=== PATIENT | male | born 1985 | race Caucasian/White ===

== ENCOUNTER → 2023-12-30 18:16 | Outpatient (BNVA) | payer MEDICARE, MEDICAID, OTHER, SELFPAY | PROVIDERS: Referring Provider Family Medicine; Visit Provider Family Medicine | DX: S99.921A Unspecified injury of right foot, initial encounter (principal); M20.11 Hallux valgus (acquired), right foot; M79.671 Pain in right foot; M21.6X1 Other acquired deformities of right foot; X58.XXXA Exposure to other specified factors, initial encounter | CPT/HCPCS: 73630 ==

== ENCOUNTER 2024-03-30 18:47 | Emergency (ER) | payer MEDICARE, MEDICAID, SELFPAY ==
--- NOTE | 2024-03-30 18:50 | XRR_ITS ---
PROCEDURE INFORMATION: Exam: XR Chest Exam date and time: 03/30/2024 6:58 PM Age: 38 years old Clinical indication: Shortness of breath; Prior surgery; Surgery date: 6+ months; Surgery type: Pacer; Additional info: Cp TECHNIQUE: Imaging protocol: Radiologic exam of the chest. Views: 1 view. COMPARISON: No relevant prior studies available. FINDINGS: Lungs: No focal consolidation. Pleural spaces: No evidence of pneumothorax. No evidence of pleural effusion. Heart/Mediastinum: Postsurgical changes of the mediastinum. Bones/joints: No evidence of acute osseous abnormality. Device projects over the scapula. XR/XR chest 1V portable [id number] IMPRESSION: 1. No acute cardiopulmonary abnormality.
[2024-03-30 18:52] VITALS: BP 138/88; PULSE 89; RESP 18; TEMP 36.6; O2SAT 98; BMI 47.2
--- NOTE | 2024-03-30 19:27 | ECG_ITS ---
[facility] Test Date: 2024-03-30 Pat Name: Herrera Garza Department: Room: Gender: Male Licensed Occupational Therapist: : [id number] Requested By: Martine Paz Order Number: [id number] Skylar MD: Dago Wan M.D. Measurements Intervals [place] Rate: 83 P: 17 NV: 176 QRS: -67 QRSD: 161 T: -4 QT: 403 QTc: 474 Interpretive Statements SINUS RHYTHM LEFT AXIS DEVIATION [QRS AXIS < -30] RIGHT BUNDLE BRANCH BLOCK [120+ ms QRS DURATION, UPRIGHT V1, 40+ ms S IN I/aVL/V4/V5/V6] No previous ECG available for comparison Electronically Signed On 03-31-2024 00:03:09 COAL CHUTE WORKER by Dago Wan M.D. [id number]
--- NOTE | 2024-03-30 19:50 | ED_ITS ---
HPI - SOB/Dyspnea 2 General: Chief Complaint: Shortness of Breath/Dyspnea Stated Complaint: ribs hurtting,SOB Time Seen by Provider: 03/30/24 19:11 Source: patient Mode of arrival: ambulatory Limitations: no limitations History of Present Illness: HPI Narrative: Patient is a 38-year-old male presents emergency department with left rib pain onset today. States he has been sick for few weeks, has been coughing and now has rib discomfort. Reports mildly productive cough, also notes he feels short of breath when he lies down. He is from [facility] living facility, no sick contacts reported. Does not use oxygen, no history of asthma or COPD. Does not report any peripheral edema. The pain is worse with inspiration as well as coughing. MD elicited complaint: cough and pain with inspiration Onset (ago): hour(s) Context: recent illness Timing: constant Severity: moderate Exacerbating factors: coughing and inspiration Associated symptoms: Deny abdominal pain, chest pain, fever(s), lightheadedness, nausea, palpitations or vomiting Related Data Home Medications Medication Instructions Recorded Confirmed acetaminophen 325 mg capsule 650 mg PO QID PRN 12/23/23 03/30/24 atorvastatin 20 mg tablet 20 mg PO .Night 12/23/23 03/30/24 calcium 600 mg (as carbonate)-vit tab PO BID 12/23/23 03/30/24 D3 10 mcg (400 unit) chewable tablet (Calcium 600 with Vitamin D3) carbamazepine 200 mg tablet 400 mg PO .Evening 12/23/23 03/30/24 carbamazepine 200 mg tablet 400 mg PO .Noon 12/23/23 03/30/24 carbamazepine 200 mg tablet 600 mg PO .AM 12/23/23 03/30/24 clonazepam 0.5 mg tablet 0.5 mg PO BID 12/23/23 03/30/24 diphenhydramine HCl 50 mg capsule 50 mg PO QID PRN 12/23/23 03/30/24 (Banophen) divalproex 250 mg tablet,extended 250 mg PO .AM 12/23/23 03/30/24 release 24 hr divalproex 500 mg tablet,extended 2,000 mg PO .HS 12/23/23 03/30/24 release 24 hr divalproex 500 mg tablet,extended 500 mg PO .AM 10/08/24 01/14/25 release 24 hr ft fiberlax psyllium husk 160 mg PO 2XD 12/23/23 03/30/24 hemorroidal cream topical BID 12/23/23 03/30/24 hydrocortisone 1 % topical cream 1 applic topical QID PRN 12/23/23 03/30/24 (Anti-Itch (hydrocortisone)) hydroxyzine HCl 25 mg tablet 25 mg PO TID 12/23/23 03/30/24 hydroxyzine pamoate 50 mg capsule 50 mg PO QID PRN 12/23/23 03/30/24 ibuprofen 400 mg tablet 400 mg PO Q6H PRN 12/23/23 03/30/24 levothyroxine 50 mcg capsule 50 mcg PO .AM 12/23/23 03/30/24 menthol 3.2 mg lozenges ([place] 3.2 mg mucous membrane Q2H PRN 12/23/23 03/30/24 Cough Drops) cse-hlmzi-hsym-lidocaine topical ea topical DAILY PRN 12/23/23 03/30/24 ointment polyethylene glycol 3350 17 4 g PO TID PRN 12/23/23 03/30/24 gram/dose oral powder potassium chloride 20 mEq 20 meq PO DAILY 12/23/23 03/30/24 tablet,extended release sennosides 8.6 mg-docusate sodium 1 tab-cap PO BID PRN 12/23/23 03/30/24 50 mg tablet (Senna-Time S) topiramate 100 mg tablet 250 mg PO .AM 12/23/23 03/30/24 topiramate 100 mg tablet 300 mg PO .Evening 12/23/23 03/30/24 dextromethorphan HBr 5 mg/5 mL 10 mg PO BID PRN 01/28/24 03/30/24 oral syrup (Vicks DayQuil Cough) Previous Rx's Medication Instructions Recorded paroxetine HCl 40 mg tablet 40 mg PO DAILY #30 tabs 01/28/24 quetiapine 50 mg tablet 50 mg PO .HS #30 tabs 01/28/24 risperidone 2 mg tablet 2 mg PO BID #60 tabs 01/28/24 kwteemdnxeaqwud-itaezhytcsmlagr-QE 5 ml PO Q6H PRN cold symptoms #118 03/08/24 2 mg-30 mg-10 mg/5 mL oral syrup mL (Bromfed DM) loperamide 2 mg capsule (Imodium 2 mg PO Q6H PRN loose stool #20 03/08/24 A-D) caps prednisone 20 mg tablet 60 mg (3 x 20 mg) PO ONCE 5 days 03/30/24 #15 tabs Allergies Allergy/AdvReac Type Severity Reaction Status Date / Time No Known Allergies Allergy Verified 03/30/24 18:58 Review of Systems 2 General: Reports: 10 or more systems reviewed and unremarkable except in HPI and below Const: Denies: fever(s), chills or fatigue Eyes: Denies: change in vision ENMT: Denies: throat pain, ear or mastoid pain or nasal discharge Card: Denies: chest pain, palpitations, swelling of feet/ankles or lightheadedness Resp: Reports: productive cough and pain on inspiration; Denies: dyspnea or wheezing GI: Denies: abdominal pain, nausea, vomiting, diarrhea or constipation : Denies: flank pain, difficulty urinating, dysuria or urinary frequency Musc: Reports: other (Left rib pain); Denies: neck pain, back pain or joint pain Skin/Breast: Denies: rash Neuro: Denies: headache(s), numbness in extremities or weakness in extremities PFSH ED 2 PFSH: Medical History Psychiatric care Social History Smoking and tobacco/nicotine status: never used tobacco/nicotine Physical Exam 2 Const: COMMON NORMALS: no acute distress, patient oriented x3 and no limitations GENERAL APPEARANCE: cooperative, comfortable and well developed NUTRITIONAL APPEARANCE: obese morbidly obese ORIENTATION/CONSCIOUSNESS: Yes awake, Yes oriented to person, Yes oriented to place and Yes oriented to time HENMT: COMMON NORMALS: normocephalic, atraumatic and hearing grossly normal bilaterally HEAD & SCALP: normocephalic and atraumatic Eye: COMMON NORMALS: Equal, round and reactive pupils present, EOMs intact bilaterally and conjunctivae normal CONJUNCTIVA: Yes conjunctivae normal P UPIL: Yes Equal, round and reactive pupils present Neck/C-Spine: COMMON NORMALS: full ROM, supple and no JVD Chest: OTHER: Reproducible tenderness to palpation to left anterolateral chest wall Resp: COMMON NORMALS: normal respiratory effort, No retractions, No use of accessory muscles and clear to auscultation bilaterally AUSCULTATION: clear to auscultation bilaterally Cardio: COMMON NORMALS: no JVD, regular rate, regular rhythm, No clicks present (Cardio), No murmurs present (Cardio) and No rub (Cardio) RATE: r egular rate RHYTHM: regular rhythm Extremity: COMMON NORMALS: normal to inspection, full ROM and capillary refill normal Neuro: COMMON NORMALS: patient oriented x3, moves all extremities, no focal motor deficits and no sensory deficits noted SENSORIUM/ORIENTATION: Yes oriented to person, Yes oriented to place and Yes oriented to time Psych: COMMON NORMALS: mental status grossly normal and Normal thought process present THOUGHT PROCESS: Normal thought process present Skin: COMMON NORMALS: no rashes or lesions noted GENERAL SKIN EXAM: no rashes or lesions noted Course 2 Vital Signs: Vital signs: Vital Signs Temperature 98 F 03/30/24 18:52 Pulse Rate 70 03/30/24 20:34 Respiratory Rate 18 03/30/24 18:52 Blood Pressure 120/74 03/30/24 20:34 Pulse Oximetry 96 03/30/24 20:34 Oxygen Delivery Me thod Room Air 03/30/24 20:34 MDM - SOB/Dyspnea Medical Decision Making Reproducible tenderness to palpation on exam, lungs are clear to auscultation. Vitals have been normal. With recent illness and the coughing, very likely costochondritis will treat with steroids. Encourage close follow-up with primary care he will be discharged back to [facility] facility. Lab Data 03/30/24 19:47 03/30/24 19:47 Labs/Radiology: Radiology Impressions Chest X-Ray 03/30/24 18:50 IMPRESSION: 1. No acute cardiopulmonary abnormality. Laboratory Results WBC 3.94 10^3/uL (3.29-11.43) 03/30/24 19:47 RBC 3.98 10^6/uL (3.85-5.65) 03/30/24 19:47 Hgb 12.20 g/dL (11.27-16.99) 03/30/24 19:47 Hct 37.6 % (37-53) 03/30/24 19:47 MCV 94.5 fl (82-101) 03/30/24 19:47 MCH 30.7 pg (27-33) 03/30/24 19:47 MCHC 32.4 g/dL (30-55) 03/30/24 19:47 RDW 13.2 % (12.1-15.1) 03/30/24 19:47 Plt Count 149 10^3/cmm (157-399) L 03/30/24 19:47 MPV 9.9 fL (7.4-10.4) 03/30/24 19:47 Neut % (Auto) 40.6 % 03/30/24 19:47 Lymph % (Auto) 38.6 % 03/30/24 19:47 [place] % (Auto) 18.0 % 03/30/24 19:47 Eos % (Auto) 1.8 % 03/30/24 19:47 Baso % (Auto) 0.5 % 03/30/24 19:47 Neut # (Auto) 1.60 10^3/uL (1.8-7.7) L 03/30/24 19:47 Lymph # (Auto) 1.5 10^3/uL (0.8-4.8) 03/30/24 19:47 [place] # (Auto) 0.7 10^3/uL (0.2-0.9) 03/30/24 19:47 Eos # (Auto) 0.1 10^3/uL (0.0-0.8) 03/30/24 19:47 Baso # (Auto) 0.0 10^3/uL (0.0-0.1) 03/30/24 19:47 Nucleated RBC % (auto) 0 % 03/30/24 19:47 Nucleated RBCs # 0.0 /100WBC 03/30/24 19:47 Sodium 139 mmol/L (136-145) 03/30/24 19:47 Potassium 4.1 mmol/L (3.5-5.1) 03/30/24 19:47 Chloride 107 mmol/L (98-107) 03/30/24 19:47 Carbon Dioxide 22 mmol/L (22-29) 03/30/24 19:47 Anion Gap 14.1 (5-19) 03/30/24 19:47 BUN 16 mg/dL (6-20) 03/30/24 19:47 Creatinine 0.6 mg/dL (0.7-1.2) L 03/30/24 19:47 GFR Calculation 151.6 mL/min (90-130) H 03/30/24 19:47 Glucose 88 mg/dL (65-115) 03/30/24 19:47 Calculated Osmolality 289 mOsm/kg (285-295) 03/30/24 19:47 Calcium 9.5 mg/dL (8.5-10.5) 03/30/24 19:47 Total Bilirubin 0.2 mg/dL (0.15-1.2) 03/30/24 19:47 AST 18 U/L (0-40) 03/30/24 19:47 ALT 13 U/L (0-41) 03/30/24 19:47 Alkaline Phosphatase 66 U/L (40-130) 03/30/24 19:47 Total Protein 7.2 g/dL (6.6-8.7) 03/30/24 19:47 Albumin 4.0 g/dL (3.5-5.2) 03/30/24 19:47 Globulin 3.2 g/dL (1.3-4.6) 03/30/24 19:47 All radiology interpretation(s) finalized by discharge Discharge Plan Discharge Patient Disposition: Home Clinical Impression: Costochondritis Condition: Stable Prescriptions: New prednisone 20 mg tablet 60 mg PO ONCE 5 Days Qty: 15 0RF No Action acetaminophen 325 mg capsule 650 mg PO QID PRN diphenhydramine HCl [Banophen] 50 mg capsule 50 mg PO QID PRN [place] Cough Drops 3.2 mg lozenge 3.2 mg mucous membrane Q2H PRN hemorroidal cream topical BID hydrocortisone [Anti-Itch (HC)] 1 % cream 1 applic topical QID PRN hydroxyzine pamoate 50 mg capsule 50 mg PO QID PRN ibuprofen 400 mg tablet 400 mg PO Q6H PRN polyethylene glycol 3350 17 gram/dose powder 4 g PO TID PRN sennosides-docusate sodium [Senna-Time S] 8.6-50 mg tablet 1 tab-cap PO BID PRN hydroxyzine HCl 25 mg tablet 25 mg PO TID divalproex 500 mg tablet extended release 24 hr 2,000 mg PO .HS divalproex 500 mg tablet extended release 24 hr 500 mg PO .AM divalproex 250 mg tablet extended release 24 hr 250 mg PO .AM Rx Instructions: With 500 mg in AM. levothyroxine 50 mcg capsule 50 mcg PO .AM clonazepam 0.5 mg tablet 0.5 mg PO BID ihq-wqsvu-mtkc-lidocaine Ointment topical DAILY PRN ft fiberlax psyllium husk 160 mg PO 2XD carbamazepine 200 mg tablet 400 mg PO .Noon carbamazepine 200 mg tablet 400 mg PO .Evening topiramate 100 mg tablet 300 mg PO .Evening atorvastatin 20 mg tablet 20 mg PO .Night Rx Instructions: Every night with dinner. carbamazepine 200 mg tablet 600 mg PO .AM potassium chloride 20 mEq tablet extended release 20 meq PO DAILY Rx Instructions: Take with food. topiramate 100 mg tablet 250 mg PO .AM Calcium 600 with Vitamin D3 600 mg-10 mcg (400 unit) tablet,chewable PO BID Vicks DayQuil Cough 5 mg/5 mL syrup 10 mg PO BID PRN quetiapine 50 mg tablet 50 mg PO .HS Qty: 30 11RF risperidone 2 mg tablet 2 mg PO BID Qty: 60 11RF paroxetine HCl 40 mg tablet 40 mg PO DAILY Qty: 30 11RF loperamide [Imodium A-D] 2 mg capsule 2 mg PO Q6H PRN (Reason: loose stool) Qty: 20 0RF iyhpwfntdpjebha-pecllqeft-KE [Bromfed DM] 2-30-10 mg/5 mL syrup 5 ml PO Q6H PRN (Reason: cold symptoms) Qty: 118 0RF Discharge Orders: Discharge ED (Routine); Ordered 03/30/24 Ordered By: Grzegorz Perrin Patient Instructions: Costochondritis (ED) Activity Restrictions/Additional Instructions: Take prednisone as prescribed. Follow-up with primary care. Drink plenty fluids. Return with any new or worsening. Coding Level of Care Code ED Warehouse Order Selector for Ambar Carmona
[2024-03-30 20:07] LABS: Basophils % 0.5 %; Eosinophils # 0.1 10^3/uL (0.0-0.8); Eosinophils % 1.8 %; Hematocrit 37.6 % (37-53); Lymphocytes # 1.5 10^3/uL (0.8-4.8); Lymphocytes % 38.6 %; Mean Corpuscular HGB Conc 32.4 g/dL (30-55); Mean Corpuscular Hemoglobin 30.7 pg (27-33); Mean Corpuscular Volume 94.5 fl (82-101); Mean Platelet Volume 9.9 fL (7.4-10.4); Monocytes # 0.7 10^3/uL (0.2-0.9); Neutrophils % 40.6 %; Nucleated Red Blood Cells % 0 %; Platelet Count 149 10^3/cmm (157-399); Red Blood Count 3.98 10^6/uL (3.85-5.65); Red Cell Distribution Width 13.2 % (12.1-15.1); White Blood Count 3.94 10^3/uL (3.29-11.43)
[2024-03-30 20:21] LABS: Alanine Aminotransferase 13 U/L (0-41); Alkaline Phosphatase 66 U/L (40-130); Anion Gap 14.1 (5-19); Aspartate Amino Transferase 18 U/L (0-40); Blood Urea Nitrogen 16 mg/dL (6-20); Calcium 9.5 mg/dL (8.5-10.5); Carbon Dioxide 22 mmol/L (22-29); Chloride 107 mmol/L (98-107); Creatinine Clr Calc Pharmacy 261.5532; Globulin 3.2 g/dL (1.3-4.6); Glomerular Filtration Rate 151.6 mL/min (90-130); Glucose 88 mg/dL (65-115); Osmolality Calculated 289 mOsm/kg (285-295); Potassium 4.1 mmol/L (3.5-5.1); Sodium 139 mmol/L (136-145); Total Bilirubin 0.2 mg/dL (0.15-1.2); Total Protein 7.2 g/dL (6.6-8.7)
[2024-03-30 20:34] VITALS: BP 120/74; PULSE 70; O2SAT 96
[2024-03-30 20:47] VITALS: BP 120/74; PULSE 70; O2SAT 96
== END 2024-03-30 20:48 | disposition home or self-care (01) ==
PROVIDERS: Emergency Provider Physician Assistant
DX: M94.0 Chondrocostal junction syndrome [Tietze] (principal)
CPT/HCPCS: 36415; 71045; 80053; 85025; 93005; 99285

== ENCOUNTER 2024-04-02 21:55 | Emergency (ER) | payer MEDICARE, MEDICAID, SELFPAY ==
[2024-04-02 22:04] VITALS: BP 119/75; PULSE 78; RESP 18; TEMP 36.8; O2SAT 98; BMI 47.6
[2024-04-03 02:00] VITALS: BP 138/97; PULSE 67; O2SAT 98
[2024-04-03 02:16] VITALS: BP 129/66; PULSE 69; O2SAT 97
[2024-04-03 02:30] VITALS: BP 139/80; PULSE 67; O2SAT 99
[2024-04-03 02:36] LABS: Covid PCR NEGATIVE (Negative); Influenza A NEGATIVE (Negative); Influenza B NEGATIVE (Negative); Respiratory Syncytial Virus Ce NEGATIVE (Negative)
--- NOTE | 2024-04-03 02:52 | ED_ITS ---
HPI - URI/Sore Throat General: Chief Complaint: Upper Respiratory Infection Stated Complaint: Coughing Time Seen by Provider: 04/03/24 02:49 History of Present Illness: Patient presents to the ER with complaints of bodyaches dizziness productive cough and just not feeling well all over. Patient's caregiver says that these have been his normal complaints that he has not had a fever. There is always viruses going to the facility. Related Data Home Medications Medication Instructions Recorded Confirmed acetaminophen 325 mg capsule 650 mg PO QID PRN 12/23/23 03/30/24 atorvastatin 20 mg tablet 20 mg PO .Night 12/23/23 03/30/24 calcium 600 mg (as carbonate)-vit tab PO BID 12/23/23 03/30/24 D3 10 mcg (400 unit) chewable tablet (Calcium 600 with Vitamin D3) carbamazepine 200 mg tablet 400 mg PO .Evening 12/23/23 03/30/24 carbamazepine 200 mg tablet 400 mg PO .Noon 12/23/23 03/30/24 carbamazepine 200 mg tablet 600 mg PO .AM 12/23/23 03/30/24 clonazepam 0.5 mg tablet 0.5 mg PO BID 12/23/23 03/30/24 diphenhydramine HCl 50 mg capsule 50 mg PO QID PRN 12/23/23 03/30/24 (Banophen) divalproex 250 mg tablet,extended 250 mg PO .AM 12/23/23 03/30/24 release 24 hr divalproex 500 mg tablet,extended 2,000 mg PO .HS 12/23/23 03/30/24 release 24 hr divalproex 500 mg tablet,extended 500 mg PO .AM 12/23/23 03/30/24 release 24 hr ft fiberlax psyllium husk 160 mg PO 2XD 12/23/23 03/30/24 hemorroidal cream topical BID 12/23/23 03/30/24 hydrocortisone 1 % topical cream 1 applic topical QID PRN 12/23/23 03/30/24 (Anti-Itch (hydrocortisone)) hydroxyzine HCl 25 mg tablet 25 mg PO TID 12/23/23 03/30/24 hydroxyzine pamoate 50 mg capsule 50 mg PO QID PRN 12/23/23 03/30/24 ibuprofen 400 mg tablet 400 mg PO Q6H PRN 12/23/23 03/30/24 levothyroxine 50 mcg capsule 50 mcg PO .AM 12/23/23 03/30/24 menthol 3.2 mg lozenges ([place] 3.2 mg mucous membrane Q2H PRN 12/23/23 03/30/24 Cough Drops) dck-jpfdy-docb-lidocaine topical ea topical DAILY PRN 12/23/23 03/30/24 ointment polyethylene glycol 3350 17 4 g PO TID PRN 12/23/23 03/30/24 gram/dose oral powder potassium chloride 20 mEq 20 meq PO DAILY 12/23/23 03/30/24 tablet,extended release sennosides 8.6 mg-docusate sodium 1 tab-cap PO BID PRN 12/23/23 03/30/24 50 mg tablet (Senna-Time S) topiramate 100 mg tablet 250 mg PO .AM 12/23/23 03/30/24 topiramate 100 mg tablet 300 mg PO .Evening 12/23/23 03/30/24 dextromethorphan HBr 5 mg/5 mL 10 mg PO BID PRN 01/28/24 03/30/24 oral syrup (Vicks DayQuil Cough) Previous Rx's Medication Instructions Recorded paroxetine HCl 40 mg tablet 40 mg PO DAILY #30 tabs 01/28/24 quetiapine 50 mg tablet 50 mg PO .HS #30 tabs 01/28/24 risperidone 2 mg tablet 2 mg PO BID #60 tabs 01/28/24 ipussvmwmnqdpyd-jzavvcjkrykfacw-ZY 5 ml PO Q6H PRN cold symptoms #118 03/08/24 2 mg-30 mg-10 mg/5 mL oral syrup mL (Bromfed DM) loperamide 2 mg capsule (Imodium 2 mg PO Q6H PRN loose stool #20 03/08/24 A-D) caps prednisone 20 mg tablet 60 mg (3 x 20 mg) PO ONCE 5 days 03/30/24 #15 tabs Allergies Allergy/AdvReac Type Severity Reaction Status Date / Time No Known Allergies Allergy Verified 03/30/24 18:58 Review of Systems General: Reports: 10 or more systems reviewed and unremarkable except in HPI and below PFSH ED PFSH: Medical History Psychiatric care Social History Smoking and tobacco/nicotine status: never used tobacco/nicotine Physical Exam Const: COMMON NORMALS: no acute distress, average body habitus, healthy appearing, alert and well nourished HENMT: COMMON NORMALS: normocephalic, atraumatic, hearing grossly normal bila terally, external ears normal, EAC's normal, TM's normal bilaterally, Normal external nose present, Normal nasal mucous membranes and turbinates present, moist oral mucous membranes and oropharynx normal HEAD & SCALP: normocephalic and atraumatic NOSE: Normal external nose present and Normal nasal mucous membranes and turbinates present EXTERNAL EAR: Yes external ears normal EXTERNAL AUDITORY CANAL: EAC's normal TYMPANIC MEMBRANE: TM's normal bilaterally Eye: COMMON NORMALS: Equal, round and reactive pupils present, EOMs intact bilaterally, conjunctivae normal and no scleral icterus CONJUNCTIVA: Yes conjunctivae normal PUPIL: Yes Equal, round and reactive pupils present Neck/C-Spine: COMMON NORMALS: no JVD Chest: COMMONS NORMALS: normal inspection of the chest and normal palpation of entire chest wall Resp: COMMON NORMALS: normal respiratory effort, No retractions, No use of accessory muscles and clear to auscultation bilaterally AUSCULTATION: clear to auscultation bilaterally Cardio: COMMON NORMALS: no JVD, regular rate, regular rhythm, S1 normal heart sound present, S2 normal heart sound present, No gallops present (Cardio), No clicks present (Cardio), No murmurs present (Cardio) and No rub (Cardio) RATE: regular rate RHYTHM: regular rhythm HEART SOUNDS: S1 normal heart sound present and S2 normal heart sound present GI: COMMON NORMALS: Normal to inspection, nondistended, normoactive bowel sounds present, Soft to palpation, non-tender, No hepatosplenomegaly present and no masses PALPATION: Yes Soft to palpation and Yes No hepatosplenomegaly present Neuro: SENSORIUM/ORIENTATION: Yes alert Course Vital Signs: Vital signs: Vital Signs Temperature 98.3 F 04/02/24 22:04 Pulse Rate 78 04/02/24 22:04 Respiratory Rate 18 04/02/24 22:04 Blood Pressure 119/75 04/02/24 22:04 Pulse Oximetry 98 04/02/24 22:04 Oxygen Delivery Me thod Room Air 04/02/24 22:04 MDM - URI/Sore Throat Medical Decision Making Patient benign physical exam and is eating and drinking during his entire stay in ER. Patient's was negative for schmid influenza and RSV. Patient be diagnosed with viral URI and discharged home. Medical Records I reviewed the patient's medical records. Lab Data I reviewed the patient's lab results. Laboratory Results Coronavirus (PCR) Negative (Negative) 04/03/24 01:58 Influenza A (PCR) Negative (Negative) 04/03/24 01:58 Influenza Type B (PCR) Negative (Negative) 04/03/24 01:58 RSV (PCR) Negative (Negative) 04/03/24 01:58 All radiology interpretation(s) finalized by discharge Discharge Plan Discharge Patient Disposition: Home Clinical Impression: Upper respiratory infection Qualifiers: URI type: unspecified URI Qualified Code(s): J06.9 - Acute upper respiratory infection, unspecified Condition: Stable Prescriptions: No Action acetaminophen 325 mg capsule 650 mg PO QID PRN diphenhydramine HCl [Banophen] 50 mg capsule 50 mg PO QID PRN [place] Cough Drops 3.2 mg lozenge 3.2 mg mucous membrane Q2H PRN hemorroidal cream topical BID hydrocortisone [Anti-Itch (HC)] 1 % cream 1 applic topical QID PRN hydroxyzine pamoate 50 mg capsule 50 mg PO QID PRN ibuprofen 400 mg tablet 400 mg PO Q6H PRN polyethylene glycol 3350 17 gram/dose powder 4 g PO TID PRN sennosides-docusate sodium [Senna-Time S] 8.6-50 mg tablet 1 tab-cap PO BID PRN hydroxyzine HCl 25 mg tablet 25 mg PO TID divalproex 500 mg tablet extended release 24 hr 2,000 mg PO .HS divalproex 500 mg tablet extended release 24 hr 500 mg PO .AM divalproex 250 mg tablet extended release 24 hr 250 mg PO .AM Rx Instructions: With 500 mg in AM. levothyroxine 50 mcg capsule 50 mcg PO .AM clonazepam 0.5 mg tablet 0.5 mg PO BID xqr-bwomj-thwo-lidocaine Ointment topical DAILY PRN ft fiberlax psyllium husk 160 mg PO 2XD carbamazepine 200 mg tablet 400 mg PO .Noon carbamazepine 200 mg tablet 400 mg PO .Evening topiramate 100 mg tablet 300 mg PO .Evening atorvastatin 20 mg tablet 20 mg PO .Night Rx Instructions: Every night with dinner. carbamazepine 200 mg tablet 600 mg PO .AM potassium chloride 20 mEq tablet extended release 20 meq PO DAILY Rx Instructions: Take with food. topiramate 100 mg tablet 250 mg PO .AM Calcium 600 with Vitamin D3 600 mg-10 mcg (400 unit) tablet,chewable PO BID Vicks DayQuil Cough 5 mg/5 mL syrup 10 mg PO BID PRN quetiapine 50 mg tablet 50 mg PO .HS Qty: 30 11RF risperidone 2 mg tablet 2 mg PO BID Qty: 60 11RF paroxetine HCl 40 mg tablet 40 mg PO DAILY Qty: 30 11RF loperamide [Imodium A-D] 2 mg capsule 2 mg PO Q6H PRN (Reason: loose stool) Qty: 20 0RF czvmkdewxyuajto-frhrphssb-VX [Bromfed DM] 2-30-10 mg/5 mL syrup 5 ml PO Q6H PRN (Reason: cold symptoms) Qty: 118 0RF prednisone 20 mg tablet 60 mg PO ONCE 5 Days Qty: 15 0RF Discharge Orders: Discharge ED (Routine); Ordered 04/03/24 Ordered By: Herrera Argueta Referrals: Kacey Suarez FNP [Primary Care Provider] - 1 week Patient Instructions: Viral Syndrome (ED) Activity Restrictions/Additional Instructions: Thank you for choosing [facility] for your healthcare needs today. Please realize that you were seen in the emergency department and that we are providing you with an emergency medical screening exam and this may not be a complete and all exclusive of all testing and/or medical workup we may need to determine your element or severity of your illness. It is very important that you follow-up as instructed with your primary care provider or specialist for the additional evaluation and to discuss your medical treatment plan. You may return to the emergency department should you have concerns or if your condition changes or worsens in any way. Coding Level of Care Code ED Light Bulb Assembler for Ambar Carmona
[2024-04-03 03:07] VITALS: BP 138/87; PULSE 68; RESP 16; O2SAT 99
== END 2024-04-03 03:32 | disposition home or self-care (01) ==
PROVIDERS: Emergency Provider Emergency Medicine; PCP Nurse Practitioner Family
DX: J06.9 Acute upper respiratory infection, unspecified (principal); Z11.52 Encounter for screening for COVID-19
CPT/HCPCS: 87637; 99283

== ENCOUNTER 2024-04-24 20:24 | Emergency (ER) | payer MEDICARE, MEDICAID, SELFPAY ==
[2024-04-24] VITALS (14 sets, daily range): BP systolic 114–132; BP diastolic 65–94; PULSE 75–84; RESP 16; TEMP 36.7; O2SAT 98–100; BMI 44.3
--- NOTE | 2024-04-24 21:16 | XRR_ITS ---
PROCEDURE INFORMATION: Exam: XR Left Hand Exam date and time: 04/24/2024 9:21 PM Age: 38 years old Clinical indication: C/O diffuse left hand pain. No injury. TECHNIQUE: Imaging protocol: Radiologic exam of the left hand. Views: 3 or more views. COMPARISON: No relevant prior studies available. FINDINGS: Bones/joints: Normal. Soft tissues: Normal. XR/XR hand LT min 3V* [id number] IMPRESSION: No acute findings.
--- NOTE | 2024-04-24 22:08 | W.ED.EXTPRO ---
HPI - Extremity Problem General: Chief complaint: Extremity Problem,Nontraumatic Stated complaint: L Hand Hurting Time Seen by Provider: 04/24/24 20:54 History of Present Illness: Herrera Garza is a 38-year-old man that presents to the emergency department with complaints of left hand pain. Patient denies any injuries. He has no wounds, contusions, edema/swelling. He was given 650 mg of acetaminophen this evening without relief. Patient has read of just to all of his fingers. He is able to use the extremity. He rates his pain an 8/10 and describes it as achy Related Data Home Medications ?Medication ?Instructions ?Recorded ?Confirmed acetaminophen 325 mg capsule 650 mg PO QID PRN 12/23/23 03/30/24 atorvastatin 20 mg tablet 20 mg PO .Night 12/23/23 03/30/24 calcium 600 mg (as carbonate)-vit tab PO BID 12/23/23 03/30/24 D3 10 mcg (400 unit) chewable tablet (Calcium 600 with Vitamin D3) carbamazepine 200 mg tablet 400 mg PO .Evening 12/23/23 03/30/24 carbamazepine 200 mg tablet 400 mg PO .Noon 12/23/23 03/30/24 carbamazepine 200 mg tablet 600 mg PO .AM 12/23/23 03/30/24 clonazepam 0.5 mg tablet 0.5 mg PO BID 12/23/23 03/30/24 diphenhydramine HCl 50 mg capsule 50 mg PO QID PRN 12/23/23 03/30/24 (Banophen) divalproex 250 mg tablet,extended 250 mg PO .AM 12/23/23 03/30/24 release 24 hr divalproex 500 mg tablet,extended 2,000 mg PO .HS 12/23/23 03/30/24 release 24 hr divalproex 500 mg tablet,extended 500 mg PO .AM 12/23/23 03/30/24 release 24 hr ft fiberlax psyllium husk 160 mg PO 2XD 12/23/23 03/30/24 hemorroidal cream topical BID 12/23/23 03/30/24 hydrocortisone 1 % topical cream 1 applic topical QID PRN 12/23/23 03/30/24 (Anti-Itch (hydrocortisone)) hydroxyzine HCl 25 mg tablet 25 mg PO TID 12/23/23 03/30/24 hydroxyzine pamoate 50 mg capsule 50 mg PO QID PRN 12/23/23 03/30/24 ibuprofen 400 mg tablet 400 mg PO Q6H PRN 12/23/23 03/30/24 levothyroxine 50 mcg capsule 50 mcg PO .AM 12/23/23 03/30/24 menthol 3.2 mg lozenges ([place] 3.2 mg mucous membrane Q2H PRN 12/23/23 03/30/24 Cough Drops) qco-kwnbp-gwao-lidocaine topical ea topical DAILY PRN 12/23/23 03/30/24 ointment polyethylene glycol 3350 17 4 g PO TID PRN 12/23/23 03/30/24 gram/dose oral powder potassium chloride 20 mEq 20 meq PO DAILY 12/23/23 03/30/24 tablet,extended release sennosides 8.6 mg-docusate sodium 1 tab-cap PO BID PRN 12/23/23 03/30/24 50 mg tablet (Senna-Time S) topiramate 100 mg tablet 250 mg PO .AM 12/23/23 03/30/24 topiramate 100 mg tablet 300 mg PO .Evening 12/23/23 03/30/24 dextromethorphan HBr 5 mg/5 mL 10 mg PO BID PRN 01/28/24 03/30/24 oral syrup (Vicks DayQuil Cough) Previous Rx's ?Medication ?Instructions ?Recorded paroxetine HCl 40 mg tablet 40 mg PO DAILY #30 tabs 01/28/24 quetiapine 50 mg tablet 50 mg PO .HS #30 tabs 01/28/24 risperidone 2 mg tablet 2 mg PO BID #60 tabs 01/28/24 fivdlurmhvimwoo-qucxtqaizvvjyjs-RJ 5 ml PO Q6H PRN cold symptoms #118 03/08/24 2 mg-30 mg-10 mg/5 mL oral syrup mL (Bromfed DM) loperamide 2 mg capsule (Imodium 2 mg PO Q6H PRN loose stool #20 03/08/24 A-D) caps Allergies Allergy/AdvReac Type Severity Reaction Status Date / Time No Known Allergies Allergy Verified 03/30/24 18:58 Review of Systems General: Reports: 10 or more systems reviewed and unremarkable except in HPI and below PFSH ED PFSH: Medical History Psychiatric care Social History Smoking and tobacco/nicotine status: never used tobacco/nicotine Physical Exam Const: COMMON NORMALS: no acute distress, patient oriented x3 and alert GENERAL APPEARANCE: cooperative ORIENTATION/CONSCIOUSNESS: Yes awake, Yes oriented to person, Yes oriented to place and Yes oriented to time Resp: COMMON NORMALS: normal respiratory effort, No retractions and No use of accessory muscles EFFORT & INSPECTION: Yes able to speak in complete sentences and Yes symmetric chest movement Cardio: COMMON NORMALS: regular rate and Peripheral pulses 2+ throughout RATE: regular rate PERIPHERAL PULSES: Peripheral pulses 2+ throughout Extremity: COMMON NORMALS: normal to inspection GENERAL: Yes normal exam except as noted Neuro: COMMON NORMALS: patient oriented x3 SENSORIUM/ORIENTATION: Yes alert, Yes oriented to person, Yes oriented to place and Yes oriented to time CRANIAL NERVES: Yes CN normal except as noted Psych: COMMON NORMALS: mental status grossly normal, Normal thought process present, cooperative, activity/motor behavior normal, denies homicidal ideation and denies suicidal ideation THOUGHT PROCESS: Normal thought process present Skin: COMMON NORMALS: no rashes or lesions noted, no wounds and turgor normal GENERAL SKIN EXAM: no rashes or lesions noted and turgor normal Course Vital Signs: Vital signs: Vital Signs Temperature 98.0 F 04/24/24 20:37 Pulse Rate 84 04/24/24 20:37 Respiratory Rate 16 04/24/24 20:37 Blood Pressure 132/94 04/24/24 21:07 Pulse Oximetry 98 04/24/24 21:15 Oxygen Delivery Me thod Room Air 04/24/24 20:37 MDM - Extremity (Nontraumatic) Medical Decision Making Patient is a 38-year-old hupj-xeca-ddvlirms male that presents to the emergency department with complaints of left hand pain. He denies any known injury. He reports the pain is a dull ache and rates it an 8/10. Patient is a poor historian. It is difficult for him to relay symptoms or the events that led up to his visit here in the emergency department. Patient describes severe pain with any type of movement, exam, touching. Although, he will use the left hand without complaint. I did test Phalen's and Tinel's but that does not seem to be any worse than any other motor or sensory exam. I talked with his respiratory care technician about him following up with primary care or orthopedics. His pain was treated here with Toradol. When advised to use xfyg-vse-tmsulmf ibuprofen or acetaminophen Lab Data Radiology Impressions Hand X-Ray 04/24/24 21:16 IMPRESSION: No acute findings. All radiology interpretation(s) finalized by discharge Discharge Plan Discharge Patient Disposition: Home Clinical Impression: Intellectual disability, Arthritis pain, hand Condition: Stable Prescriptions: No Action acetaminophen 325 mg capsule 650 mg PO QID PRN diphenhydramine HCl [Banophen] 50 mg capsule 50 mg PO QID PRN [place] Cough Drops 3.2 mg lozenge 3.2 mg mucous membrane Q2H PRN hemorroidal cream topical BID hydrocortisone [Anti-Itch (HC)] 1 % cream 1 applic topical QID PRN hydroxyzine pamoate 50 mg capsule 50 mg PO QID PRN ibuprofen 400 mg tablet 400 mg PO Q6H PRN polyethylene glycol 3350 17 gram/dose powder 4 g PO TID PRN sennosides-docusate sodium [Senna-Time S] 8.6-50 mg tablet 1 tab-cap PO BID PRN hydroxyzine HCl 25 mg tablet 25 mg PO TID divalproex 500 mg tablet extended release 24 hr 2,000 mg PO .HS divalproex 500 mg tablet extended release 24 hr 500 mg PO .AM divalproex 250 mg tablet extended release 24 hr 250 mg PO .AM Rx Instructions: With 500 mg in AM. levothyroxine 50 mcg capsule 50 mcg PO .AM clonazepam 0.5 mg tablet 0.5 mg PO BID kkb-stjef-jskf-lidocaine Ointment topical DAILY PRN ft fiberlax psyllium husk 160 mg PO 2XD carbamazepine 200 mg tablet 400 mg PO .Noon carbamazepine 200 mg tablet 400 mg PO .Evening topiramate 100 mg tablet 300 mg PO .Evening atorvastatin 20 mg tablet 20 mg PO .Night Rx Instructions: Every night with dinner. carbamazepine 200 mg tablet 600 mg PO .AM potassium chloride 20 mEq tablet extended release 20 meq PO DAILY Rx Instructions: Take with food. topiramate 100 mg tablet 250 mg PO .AM Calcium 600 with Vitamin D3 600 mg-10 mcg (400 unit) tablet,chewable PO BID Vicks DayQuil Cough 5 mg/5 mL syrup 10 mg PO BID PRN quetiapine 50 mg tablet 50 mg PO .HS Qty: 30 11RF risperidone 2 mg tablet 2 mg PO BID Qty: 60 11RF paroxetine HCl 40 mg tablet 40 mg PO DAILY Qty: 30 11RF loperamide [Imodium A-D] 2 mg capsule 2 mg PO Q6H PRN (Reason: loose stool) Qty: 20 0RF iunutugklqjfjmt-ikahmgrol-PR [Bromfed DM] 2-30-10 mg/5 mL syrup 5 ml PO Q6H PRN (Reason: cold symptoms) Qty: 118 0RF Discharge Orders: Discharge ED (Routine); Ordered 04/24/24 Ordered By: Carson Richmond Referrals: Kacey Suarez FNP [Primary Care Provider] - Discharge Diet: Advance as tolerated Discharge Activity: Resume usual activity Patient Instructions: Safe Use of NSAIDs (ED), Arthritis (ED), Pain Management Activity Restrictions/Additional Instructions: Please use kxbt-ifw-yglwjmj nonsteroidal anti-inflammatory drugs like ibuprofen, naproxen, Aleve. Follow-up with primary care for ongoing left hand pain. Return to the emergency department for new, concerning, worsening symptoms Print Language: Icelandic Coding Level of Care Code ED [employer] Machine Operator for Ambar Carmona
[2024-04-24] MEDS: ketorolac 10 mg Tablet PO (22:42)
== END 2024-04-24 23:51 | disposition home or self-care (01) ==
PROVIDERS: Emergency Provider Nurse Practitioner; PCP Nurse Practitioner Family
DX: M13.842 Other specified arthritis, left hand (principal); F79 Unspecified intellectual disabilities
CPT/HCPCS: 73130; 99283

== ENCOUNTER → 2024-05-06 08:19 | Outpatient (BNVA) | payer MEDICARE, MEDICAID, SELFPAY | PROVIDERS: PCP Nurse Practitioner Family; Referring Provider Nurse Practitioner Family; Visit Provider Specialist | DX: G40.309 Generalized idiopathic epilepsy and epileptic syndromes, not intractable, without status epilepticus (principal); Q90.1 Trisomy 21, mosaicism (mitotic nondisjunction); F79 Unspecified intellectual disabilities | CPT/HCPCS: 36415; 80157; 80164; 99205 ==

== ENCOUNTER → 2024-05-20 11:07 | Outpatient (BNVA) | payer MEDICARE, MEDICAID, SELFPAY | PROVIDERS: PCP Nurse Practitioner Family; Visit Provider Surgery | DX: K92.2 Gastrointestinal hemorrhage, unspecified (principal); Q90.1 Trisomy 21, mosaicism (mitotic nondisjunction) | CPT/HCPCS: 99204 ==

== ENCOUNTER → 2024-05-25 08:57 | Outpatient (BNVA) | payer MEDICARE, SELFPAY | PROVIDERS: PCP Nurse Practitioner Family; Referring Provider Nurse Practitioner Family; Visit Provider Specialist | DX: M79.641 Pain in right hand (principal); M79.642 Pain in left hand; R20.0 Anesthesia of skin; R20.2 Paresthesia of skin | CPT/HCPCS: 95911 ==

== ENCOUNTER → 2024-06-02 13:48 | Outpatient (BNVA) | payer MEDICARE, SELFPAY | PROVIDERS: PCP Nurse Practitioner Family; Referring Provider Nurse Practitioner Family; Visit Provider Surgery | DX: K92.2 Gastrointestinal hemorrhage, unspecified (principal) | CPT/HCPCS: 99214 ==

== ENCOUNTER 2024-06-12 21:09 | Emergency (ER) | payer MEDICARE, MEDICAID, SELFPAY ==
[2024-06-12 22:09] VITALS: BP 116/81; PULSE 92; RESP 16; TEMP 37.1; O2SAT 98; BMI 48.8
--- NOTE | 2024-06-12 22:43 | PC.NURSE ---
Pt. presents to ER with complaint of knee pain after falling at home and hitting knees and head.
[2024-06-13 00:01] LABS: Influenza A NEGATIVE (Negative); Influenza B NEGATIVE (Negative); Respiratory Syncytial Virus Ce NEGATIVE (Negative); SARS-CoV-2 PCR NEGATIVE (Negative)
--- NOTE | 2024-06-13 00:01 | W.ED.GENADLT ---
HPI - General Adult General: Chief complaint: General Medical Stated complaint: fall hit head knees Time Seen by Provider: 06/12/24 23:00 History of Present Illness: 38-year-old male with a history of cognitive delay. He also has a seizure history. He presents because he is not felt well all day. He is generalized muscle aches. He has felt generally weak. He complained earlier of a headache. He still has a mild headache. No fever. Denies cough. On the way to the hospital, while walking in the yard, he fell, striking his anterior knees bilaterally. He was able to bear weight following. Related Data Home Medications ?Medication ?Instructions ?Recorded ?Confirmed atorvastatin 20 mg tablet 20 mg PO .Night 12/23/23 06/02/24 calcium 600 mg (as carbonate)-vit 1 tab PO BID 12/23/23 06/02/24 D3 10 mcg (400 unit) chewable tablet (Calcium 600 with Vitamin D3) carbamazepine 200 mg tablet 400 mg PO BID 12/23/23 06/02/24 carbamazepine 200 mg tablet 600 mg PO .AM 12/23/23 06/02/24 clonazepam 0.5 mg tablet 0.5 mg PO BID 12/23/23 06/02/24 diphenhydramine HCl 50 mg capsule 50 mg PO QID PRN Allergic Reaction 12/23/23 06/02/24 (Banophen) divalproex 250 mg tablet,extended 250 mg PO .AM 12/23/23 06/02/24 release 24 hr divalproex 500 mg tablet,extended 2,000 mg PO .HS 12/23/23 06/02/24 release 24 hr divalproex 500 mg tablet,extended 500 mg PO .AM 12/23/23 06/02/24 release 24 hr ft fiberlax psyllium husk 160 mg PO BID 12/23/23 06/02/24 hemorroidal cream 1 applic topical BID PRN irritation 12/23/23 06/02/24 hydrocortisone 1 % topical cream 1 applic topical QID PRN Itching 12/23/23 06/02/24 (Anti-Itch (hydrocortisone)) hydroxyzine HCl 25 mg tablet 25 mg PO TID 12/23/23 06/02/24 hydroxyzine pamoate 50 mg capsule 50 mg PO QID PRN Anxiety 12/23/23 06/02/24 ibuprofen 400 mg tablet 400 mg PO Q6H PRN Pain 12/23/23 06/02/24 levothyroxine 50 mcg capsule 50 mcg PO .AM 12/23/23 06/02/24 menthol 3.2 mg lozenges ([place] 3.2 mg mucous membrane Q2H PRN 12/23/23 06/02/24 Cough Drops) Cough bew-kiwwh-keqf-lidocaine topical 1 ea topical DAILY PRN cuts 12/23/23 06/02/24 ointment polyethylene glycol 3350 17 4 g PO TID PRN Constipation 12/23/23 06/02/24 gram/dose oral powder potassium chloride 20 mEq 20 meq PO DAILY 12/23/23 06/02/24 tablet,extended release sennosides 8.6 mg-docusate sodium 1 tab-cap PO BID PRN Constipation 12/23/23 06/02/24 50 mg tablet (Senna-Time S) dextromethorphan HBr 5 mg/5 mL 10 mg PO BID PRN Cough 01/28/24 06/02/24 oral syrup (Vicks DayQuil Cough) Previous Rx's ?Medication ?Instructions ?Recorded paroxetine HCl 40 mg tablet 40 mg PO DAILY #30 tabs 01/28/24 quetiapine 50 mg tablet 50 mg PO .HS #30 tabs 01/28/24 risperidone 2 mg tablet 2 mg PO BID #60 tabs 01/28/24 loperamide 2 mg capsule (Imodium 2 mg PO Q6H PRN loose stool #20 03/08/24 A-D) caps polyethylene glycol 3350 17 17 g PO BID 7 days #238 grams 06/02/24 gram/dose oral powder (Miralax) Allergies Allergy/AdvReac Type Severity Reaction Status Date / Time No Known Allergies Allergy Verified 06/02/24 14:04 [facility] ED PFSH: Medical History Psychiatric care Social History Smoking and tobacco/nicotine status: never used tobacco/nicotine Physical Exam Const: COMMON NORMALS: no acute distress GENERAL APPEARANCE: cooperative; not ill appearing and not frail appearing HENMT: COMMON NORMALS: normocephalic, atraumatic and Normal external nose present HEAD & SCALP: normocephalic and atraumatic FACE & SINUS: normal facial exam and face symmetric NOSE: Normal external nose present Eye: COMMON NORMALS: Equal, round and reactive pupils present and EOMs intact bilaterally PUPIL: Yes Equal, round and reactive pupils present Neck/C-Spine: GENERAL: Yes trachea midline Chest: CHEST: Yes Symmetrical chest wall rise Resp: COMMON NORMALS: normal respiratory effort, No retractions, No use of accessory muscles and clear to auscultation bilaterally AUSCULTATION: clear to auscultation bilaterally Cardio: COMMON NORMALS: regular rate and regular rhythm RATE: regular rate RHYTHM: regular rhythm GI: COMMON NORMALS: Normal to inspection, nondistended, normoactive bowel sounds present Extremity: COMMON NORMALS: no pedal edema Neuro: GUILLE COMA SCALE: document GCS findings Guille coma scale eye opening: Spontaneous Guille coma scale verbal response: Orientated [place] coma scale motor response: Obey commands Guille coma scale total score: 15 SENSORY EXAM: Yes extremities (intact) Psych: COMMON NORMALS: speech normal SPEECH: Yes normal speech Skin: COMMON NORMALS: no rashes or lesions noted GENERAL SKIN EXAM: no rashes or lesions noted Course Vital Signs: Vital signs: Vital Signs Temperature 98.7 F 06/12/24 22:09 Pulse Rate 92 06/12/24 22:09 Respiratory Rate 16 06/12/24 22:09 Blood Pressure 116/81 06/12/24 22:09 Pulse Oximetry 98 06/12/24 22:09 Oxygen Delivery Me thod Room Air 06/12/24 22:09 [facility] - General Adult Medical Decision Making Swabs for flu and RSV and COVID are negative. He is afebrile. Vitals are normal. Knee exam reveals no effusion or evidence of significant injury. Small abrasions present. He will be discharged home. Lab Data Laboratory Results Influenza A (PCR) Negative (Negative) 06/12/24 23:19 Influenza Type B (PCR) Negative (Negative) 06/12/24 23:19 RSV (PCR) Negative (Negative) 06/12/24 23:19 SARS-CoV-2 (PCR) Negative (Negative) 06/12/24 23:19 No radiology studies performed this visit Discharge Plan Discharge Patient Disposition: Home Clinical Impression: Generalized weakness Condition: Stable Prescriptions: No Action diphenhydramine HCl [Banophen] 50 mg capsule 50 mg PO QID PRN (Reason: Allergic Reaction) [place] Cough Drops 3.2 mg lozenge 3.2 mg mucous membrane Q2H PRN (Reason: Cough) hemorroidal cream 1 applic topical BID PRN (Reason: irritation) hydrocortisone [Anti-Itch (HC)] 1 % cream 1 applic topical QID PRN (Reason: Itching) hydroxyzine pamoate 50 mg capsule 50 mg PO QID PRN (Reason: Anxiety) ibuprofen 400 mg tablet 400 mg PO Q6H PRN (Reason: Pain) polyethylene glycol 3350 17 gram/dose powder 4 g PO TID PRN (Reason: Constipation) sennosides-docusate sodium [Senna-Time S] 8.6-50 mg tablet 1 tab-cap PO BID PRN (Reason: Constipation) hydroxyzine HCl 25 mg tablet 25 mg PO TID divalproex 500 mg tablet extended release 24 hr 2,000 mg PO .HS divalproex 500 mg tablet extended release 24 hr 500 mg PO .AM divalproex 250 mg tablet extended release 24 hr 250 mg PO .AM Rx Instructions: With 500 mg in AM. levothyroxine 50 mcg capsule 50 mcg PO .AM clonazepam 0.5 mg tablet 0.5 mg PO BID zmg-pfial-ystq-lidocaine Ointment 1 ea topical DAILY PRN (Reason: cuts) ft fiberlax psyllium husk 160 mg PO BID carbamazepine 200 mg tablet 400 mg PO BID Rx Instructions: noon, evening atorvastatin 20 mg tablet 20 mg PO .Night Rx Instructions: Every night with dinner. carbamazepine 200 mg tablet 600 mg PO .AM potassium chloride 20 mEq tablet extended release 20 meq PO DAILY Rx Instructions: Take with food. Calcium 600 with Vitamin D3 600 mg-10 mcg (400 unit) tablet,chewable 1 tab PO BID Vicks DayQuil Cough 5 mg/5 mL syrup 10 mg PO BID PRN (Reason: Cough) quetiapine 50 mg tablet 50 mg PO .HS Qty: 30 11RF risperidone 2 mg tablet 2 mg PO BID Qty: 60 11RF paroxetine HCl 40 mg tablet 40 mg PO DAILY Qty: 30 11RF loperamide [Imodium A-D] 2 mg capsule 2 mg PO Q6H PRN (Reason: loose stool) Qty: 20 0RF polyethylene glycol 3350 [Miralax] 17 gram/dose powder 17 g PO BID 7 Days Qty: 238 0RF Discharge Orders: Discharge ED (Routine); Ordered 06/13/24 Ordered By: Thai Rocha Referrals: Kacey Suarez FNP [Primary Care Provider] - 1-3 days Patient Instructions: Weakness (ED), Opioid Safety, Pain Management Activity Restrictions/Additional Instructions: Drink plenty of clear liquids for the next 48 hours. Return for vomiting, development of fever, cough, seizures, other concerning symptoms. Call your doctor tomorrow for follow-up appointment. Print Language: Vietnamese Coding Level of Care Code ED [employer] Press Feeder for Ambar Carmona
== END 2024-06-13 00:20 | disposition home or self-care (01) ==
PROVIDERS: Emergency Provider Emergency Medicine; PCP Nurse Practitioner Family
DX: R53.1 Weakness (principal); Z11.52 Encounter for screening for COVID-19
CPT/HCPCS: 87637; 99283

== ENCOUNTER 2024-06-23 05:46 | Day surgery (SDC) | payer MEDICARE, SELFPAY ==
--- NOTE | 2024-06-23 06:03 | P.HPUD_ITS ---
Surgery/Procedure H&P Update DATE OF PROCEDURE: June 23, 2024 DATE H&P PERFORMED: 06/02/24 H&P UPDATE INFORMATION: I have reviewed H&P completed within last 30 days, I have examined patient prior to procedure, No changes to prior documentation, H&P is in [facility] EMR on date indicated and Risks and benefits of the procedure reviewed PLANNED PROCEDURE: Operation Date: 06/23/24 07:00 Proposed Procedures p EGD [id number] G0105 K92.2(Not Applicable) - Grzegorz Marroquin MD s Colonoscopy(Not Applicable) - Grzegorz Marroquin MD
[2024-06-23 06:04] VITALS: BP 150/91; PULSE 90; RESP 18; TEMP 36.4; O2SAT 96; BMI 49.4
[2024-06-23] MEDS: sodium chloride 0.9% 1,000 ML 15 ML IV (06:17)
--- NOTE | 2024-06-23 06:43 | ANES.PREANE2 ---
Pre-Anesthetic Assessment Height/Weight: Height 1.83 m Weight 165.108 kg Temp Pulse Resp BP Pulse Ox O2 Del Method 97.5 F L 90 18 150/91 96 Room Air 06/23/24 06:04 06/23/24 06:04 06/23/24 06:04 06/23/24 06:04 06/23/24 06:04 06/23/24 06:04 Preop Diagnosis: Gastrointestinal Hemorrhage Operation Date: 06/23/24 07:00 Proposed Procedures p EGD [id number] G0105 K92.2(Not Applicable) - Grzegorz Marroquin MD s Colonoscopy(Not Applicable) - Grzegorz Marroquin MD Familial anesthetic complications: none Was Beta Amber taken within 24 hours: N/A Was Clonidine taken within 24 hours: N/A Last intake: Intake Last Liquid Date 06/23/24 Last Liquid Time 0500 sips with meds Last Solid Date 06/22/24 Last Solid Time 04:00 Social No alcohol and No tobacco Exam alert, oriented x 3, clear to auscultation bilaterally and regular rate & rhythm Airway Submandibular: within normal limits Cervical ROM: within normal limits Mallampati: Class III Dentition: chipped (teeth appear to be chipped along the edges, brittle) Pulmonary None reported CV/HEM Hypertension open heart surgery at 6 with defective heart valve unsure of procedure. None reported Hepatic None reported GI GI bleed Metabolic Hyperlipidemia and Morbid Obesity [facility] None reported Neuropsych Seizure Anesthetic Plan ASA status: 3 Other: Patient states that Angela his technical healthcare consultant will provide his ride home, He denies any family states they all . Medications/Allergies Home Medications ?Medication ?Instructions ?Recorded ?Confirmed ?Last Taken ?Type atorvastatin 20 mg tablet 20 mg PO .Night 12/23/23 06/23/24 06/20/24 History calcium 600 mg (as carbonate)-vit 1 tab PO BID 12/23/23 06/23/24 06/21/24 History D3 10 mcg (400 unit) chewable tablet (Calcium 600 with Vitamin D3) carbamazepine 200 mg tablet 400 mg PO BID 12/23/23 06/23/24 06/21/24 History carbamazepine 200 mg tablet 600 mg PO .AM 12/23/23 06/23/24 06/23/24 05:30 History clonazepam 0.5 mg tablet 0.5 mg PO BID 12/23/23 06/23/24 06/23/24 05:30 History diphenhydramine HCl 50 mg capsule 50 mg PO QID PRN Allergic Reaction 12/23/23 06/23/24 Unknown History (Banophen) divalproex 500 mg tablet,extended 2,000 mg PO .HS 12/23/23 06/23/24 06/21/24 History release 24 hr divalproex 500 mg tablet,extended 500 mg PO .AM 12/23/23 06/23/24 06/23/24 05:30 History release 24 hr ft fiberlax psyllium husk 160 mg PO BID 12/23/23 06/23/24 06/21/24 History hemorroidal cream 1 applic topical BID PRN irritation 12/23/23 06/23/24 Unknown History hydrocortisone 1 % topical cream 1 applic topical QID PRN Itching 12/23/23 06/23/24 Unknown History (Anti-Itch (hydrocortisone)) hydroxyzine HCl 25 mg tablet 25 mg PO TID 12/23/23 06/23/24 06/21/24 History hydroxyzine pamoate 50 mg capsule 50 mg PO QID PRN Anxiety 12/23/23 06/23/24 Unknown History ibuprofen 400 mg tablet 400 mg PO Q6H PRN Pain 12/23/23 06/23/24 Unknown History levothyroxine 50 mcg capsule 50 mcg PO .AM 12/23/23 06/23/24 06/23/24 05:30 History menthol 3.2 mg lozenges ([place] 3.2 mg mucous membrane Q2H PRN 12/23/23 06/23/24 Unknown History Cough Drops) Cough svk-qeroo-fmcg-lidocaine topical 1 ea topical DAILY PRN cuts 12/23/23 06/23/24 Unknown History ointment polyethylene glycol 3350 17 4 g PO TID PRN Constipation 12/23/23 06/23/24 Unknown History gram/dose oral powder potassium chloride 20 mEq 20 meq PO DAILY 12/23/23 06/21/24 06/21/24 History tablet,extended release sennosides 8.6 mg-docusate sodium 1 tab-cap PO BID PRN Constipation 12/23/23 06/21/24 Unknown History 50 mg tablet (Senna-Time S) dextromethorphan HBr 5 mg/5 mL 10 mg PO BID PRN Cough 01/28/24 06/23/24 Unknown History oral syrup (Vicks DayQuil Cough) paroxetine HCl 40 mg tablet 40 mg PO DAILY #30 tabs 01/28/24 06/23/24 06/23/24 05:30 Rx quetiapine 50 mg tablet 50 mg PO .HS #30 tabs 01/28/24 06/21/24 06/20/24 Rx risperidone 2 mg tablet 2 mg PO BID #60 tabs 01/28/24 06/23/24 06/23/24 05:30 Rx loperamide 2 mg capsule (Imodium 2 mg PO Q6H PRN loose stool #20 03/08/24 06/23/24 Unknown Rx A-D) caps polyethylene glycol 3350 17 17 g PO BID 7 days #238 grams 06/02/24 06/21/24 Unknown Rx gram/dose oral powder (Miralax) topiramate 100 mg tablet See Rx Instructions .Route .COMPLEX 06/21/24 06/23/24 06/23/24 05:30 History Allergies Allergy/AdvReac Type Severity Reaction Status Date / Time No Known Allergies Allergy Verified 06/21/24 12:47 Current Medications Generic Name Dose Route Start Last Admin Trade Name Freq PRN Reason Stop Dose Admin Sodium Chloride 1,000 mls @ 15 mls/hr 06/23/24 05:54 06/23/24 06:17 Sodium Chloride 0.9% IV 06/24/24 05:53 15 mls/hr .Q24H PRN Administration COLONOSCOPY FLUIDS PFSH Anesthesia Medical History Psychiatric care Social History Smoking and tobacco/nicotine status: never used tobacco/nicotine Data Anesthesia Cardiac Studies: No Data to Display
[2024-06-23 07:30] VITALS: BP 115/89; PULSE 91; RESP 16; TEMP 37.2; O2SAT 94
[2024-06-23 07:40] VITALS: BP 137/89; PULSE 87; RESP 18; O2SAT 97
[2024-06-23 07:50] VITALS: BP 131/90; PULSE 89; RESP 18; O2SAT 96
--- NOTE | 2024-06-23 08:15 | ANE.PACU2 ---
Inpatient post-anesthesia follow up: Airway intact: Yes Vital signs: Temperature 99.0 F Pulse Rate 89 Respiratory Rate 18 Blood Pressure 131/90 Pulse Oximetry 96 Oxygen Delivery Me thod Room Air Oxygen Flow Rate Fraction of Inspir ed Oxygen Hydration adequate: Yes Nausea and vomiting: No Pain level: 1 Mental status: Baseline
== END 2024-06-23 08:15 | disposition home or self-care (01) ==
PROVIDERS: PCP Nurse Practitioner Family; Visit Provider Surgery
PROC: 0DJ08ZZ Inspection of Upper Intestinal Tract, Via Natural or Artificial Opening Endoscopic (ICD-10-PCS; principal; 2024-06-23 07:00)
PROC: 0DJD8ZZ Inspection of Lower Intestinal Tract, Via Natural or Artificial Opening Endoscopic (ICD-10-PCS; CPT 45378; 2024-06-23 07:00)
DX: K29.01 Acute gastritis with bleeding (principal); K44.9 Diaphragmatic hernia without obstruction or gangrene; K08.89 Other specified disorders of teeth and supporting structures; I10 Essential (primary) hypertension; E78.5 Hyperlipidemia, unspecified; E66.01 Morbid (severe) obesity due to excess calories; Z68.42 Body mass index [BMI] 45.0-49.9, adult; Z79.899 Other long term (current) drug therapy
CPT/HCPCS: 43239; 45378; 80061; 83036; 83721; 88305; J2371; J2704; J3490; J7030

== ENCOUNTER 2024-07-13 13:30 | Outpatient (CLI) | payer MEDICARE, SELFPAY | END 2024-07-13 13:31 | disposition home or self-care (01) | PROVIDERS: PCP Nurse Practitioner Family; Visit Provider Nurse Practitioner Family | DX: Z09 Encounter for follow-up examination after completed treatment for conditions other than malignant neoplasm (principal) | CPT/HCPCS: 99213 ==

== ENCOUNTER 2024-08-17 06:27 | Emergency (ER) | payer MEDICARE, SELFPAY ==
--- NOTE | 2024-08-17 06:39 | W.ED.ABDPA2 ---
HPI - Abdominal Pain General: Chief Complaint: Abdominal Pain Stated Complaint: lt side abd pain Time Seen by Provider: 08/17/24 06:32 History of Present Illness: 39-year-old male presents emergency room for left-sided abdominal pain. Patient refers to the left upper quadrant to the lower portion of the ribs denies any shortness of breath. Denies any dysuria urgency or frequency. It is worse when he moves better when he remains still. No rash noted. No history of kidney stones. Patient does not consume alcohol. Associated Symptoms: Denies chills, dysuria and fever(s) Related Data Home Medications ?Medication ?Instructions ?Recorded ?Confirmed atorvastatin 20 mg tablet 20 mg PO .Night 12/23/23 08/10/24 calcium 600 mg (as carbonate)-vit 1 tab PO BID 12/23/23 08/10/24 D3 10 mcg (400 unit) chewable tablet (Calcium 600 with Vitamin D3) carbamazepine 200 mg tablet 400 mg PO BID 12/23/23 08/10/24 carbamazepine 200 mg tablet 600 mg PO .AM 12/23/23 08/10/24 clonazepam 0.5 mg tablet 0.5 mg PO BID 12/23/23 08/10/24 diphenhydramine HCl 50 mg capsule 50 mg PO QID PRN Allergic Reaction 12/23/23 08/10/24 (Banophen) divalproex 500 mg tablet,extended 2,000 mg PO .HS 12/23/23 08/10/24 release 24 hr divalproex 500 mg tablet,extended 500 mg PO .AM 12/23/23 08/10/24 release 24 hr ft fiberlax psyllium husk 160 mg PO BID 12/23/23 08/10/24 hemorroidal cream 1 applic topical BID PRN irritation 12/23/23 08/10/24 hydrocortisone 1 % topical cream 1 applic topical QID PRN Itching 12/23/23 08/10/24 (Anti-Itch (hydrocortisone)) hydroxyzine HCl 25 mg tablet 25 mg PO TID 12/23/23 08/10/24 hydroxyzine pamoate 50 mg capsule 50 mg PO QID PRN Anxiety 12/23/23 08/10/24 ibuprofen 400 mg tablet 400 mg PO Q6H PRN Pain 12/23/23 08/10/24 levothyroxine 50 mcg capsule 50 mcg PO .AM 12/23/23 08/10/24 menthol 3.2 mg lozenges ([place] 3.2 mg mucous membrane Q2H PRN 12/23/23 08/10/24 Cough Drops) Cough jpl-yibyf-idld-lidocaine topical 1 ea topical DAILY PRN cuts 12/23/23 08/10/24 ointment polyethylene glycol 3350 17 4 g PO TID PRN Constipation 12/23/23 08/10/24 gram/dose oral powder potassium chloride 20 mEq 20 meq PO DAILY 12/23/23 08/10/24 tablet,extended release sennosides 8.6 mg-docusate sodium 1 tab-cap PO BID PRN Constipation 12/23/23 08/10/24 50 mg tablet (Senna-Time S) dextromethorphan HBr 5 mg/5 mL 10 mg PO BID PRN Cough 01/28/24 08/10/24 oral syrup (Vicks DayQuil Cough) topiramate 100 mg tablet See Rx Instructions .Route .COMPLEX 06/21/24 08/10/24 Previous Rx's ?Medication ?Instructions ?Recorded paroxetine HCl 40 mg tablet 40 mg PO DAILY #30 tabs 01/28/24 quetiapine 50 mg tablet 50 mg PO .HS #30 tabs 01/28/24 risperidone 2 mg tablet 2 mg PO BID #60 tabs 01/28/24 loperamide 2 mg capsule (Imodium 2 mg PO Q6H PRN loose stool #20 03/08/24 A-D) caps polyethylene glycol 3350 17 17 g PO BID 7 days #238 grams 06/02/24 gram/dose oral powder (Miralax) pantoprazole 40 mg tablet,delayed 40 mg PO ONCE #30 tabs 06/23/24 release polyethylene glycol 3350 17 gram 17 g PO DAILY 30 days #30 ea 06/23/24 oral powder packet (Miralax) Allergies Allergy/AdvReac Type Severity Reaction Status Date / Time No Known Allergies Allergy Verified 08/10/24 16:16 Review of Systems Const: Denies: fever(s) or chills Card: Denies: chest pain Resp: Denies: dyspnea GI: Denies: abdominal pain : Denies: dysuria, urinary frequency or urinary urgency Musc: Denies: neck pain or back pain Skin/Breast: Denies: rash PFSH ED PFSH: Medical History (Updated 08/17/24 @ 08:53 by Paco Rebolledo DO) Generalized epilepsy Generalized anxiety disorder Mosaic Down syndrome Intellectual disability Psychiatric care Social History Smoking and tobacco/nicotine status: never used tobacco/nicotine Physical Exam Const: GENERAL APPEARANCE: cooperative ORIENTATION/CONSCIOUSNESS: Yes awake, Yes oriented to person, Yes oriented to place and Yes oriented to time HENMT: COMMON NORMALS: normocephalic, atraumatic and hearing grossly normal bilaterally HEAD & SCALP: normocephalic and atraumatic Resp: COMMON NORMALS: normal respiratory effort, No retractions, No use of accessory muscles and clear to auscultation bilaterally AUSCULTATION: clear to auscultation bilaterally Cardio: COMMON NORMALS: regular rate, regular rhythm and No murmurs present (Cardio) RATE: regular rate RHYTHM: regular rhythm GI: COMMON NORMALS: Soft to palpation and No hepatosplenomegaly present AUSCULTATION: Yes normoactive bowel sounds PALPATION: Yes Soft to palpation, No Tenderness to palpation present (GI), No Guarding due to palpation present (GI) and Yes No hepatosplenomegaly present Extremity: COMMON NORMALS: normal to inspection, capillary refill normal, no clubbing, cyanosis or edema, no calf tenderness and no pedal edema Neuro: SENSORIUM/ORIENTATION: Yes oriented to person, Yes oriented to place and Yes oriented to time Skin: COMMON NORMALS: no rashes or lesions noted GENERAL SKIN EXAM: no rashes or lesions noted Course Vital Signs: Vital signs: Vital Signs Temperature 97.8 F 08/17/24 06:42 Pulse Rate 68 08/17/24 09:04 Respiratory Rate 18 08/17/24 06:42 Blood Pressure 122/67 08/17/24 09:04 Pulse Oximetry 99 08/17/24 09:04 Oxygen Delivery Me thod Room Air 08/17/24 09:03 MDM - Abdominal Pain Medical Decision Making Patient ate more for more than usual yesterday. He usually is on a calorie restricted diet ate nearly double what he usually does. His lipase is slightly elevated but CT did not show any acute findings. Reviewed with caregiver. Continue his current medications including his dietary recommendations from his doctor at this point no acute or emergent condition is noted and discharged home. Medical Records I reviewed the patient's medical records. Lab Data I reviewed the patient's lab results. 08/17/24 06:49 08/17/24 06:49 Labs/Radiology: Radiology Impressions Abdomen/Pelvis CT 08/17/24 08:07 IMPRESSION: 1. No hydronephrosis in either kidney. 2. Noncontrast pancreas appears normal. No evidence of acute pancreatitis. 3. Small esophageal hiatal hernia. 4. Subsegmental atelectasis in the lung bases. Laboratory Results WBC 6.04 10^3/uL (3.29-11.43) 08/17/24 06:49 RBC 4.03 10^6/uL (3.85-5.65) 08/17/24 06:49 Hgb 12.20 g/dL (11.27-16.99) 08/17/24 06:49 Hct 39.7 % (37-53) 08/17/24 06:49 MCV 98.5 fl (82-101) 08/17/24 06:49 MCH 30.3 pg (27-33) 08/17/24 06:49 MCHC 30.7 g/dL (30-55) 08/17/24 06:49 RDW 13.5 % (12.1-15.1) 08/17/24 06:49 Plt Count 178 10^3/cmm (157-399) 08/17/24 06:49 MPV 10.1 fL (7.4-10.4) 08/17/24 06:49 Neut % (Auto) 58.1 % 08/17/24 06:49 Lymph % (Auto) 24.2 % 08/17/24 06:49 [place] % (Auto) 15.2 % 08/17/24 06:49 Eos % (Auto) 1.0 % 08/17/24 06:49 Baso % (Auto) 0.5 % 08/17/24 06:49 Neut # (Auto) 3.51 10^3/uL (1.8-7.7) 08/17/24 06:49 Lymph # (Auto) 1.5 10^3/uL (0.8-4.8) 08/17/24 06:49 [place] # (Auto) 0.9 10^3/uL (0.2-0.9) 08/17/24 06:49 Eos # (Auto) 0.1 10^3/uL (0.0-0.8) 08/17/24 06:49 Baso # (Auto) 0.0 10^3/uL (0.0-0.1) 08/17/24 06:49 Nucleated RBC % (auto) 0 % 08/17/24 06:49 Nucleated RBCs # 0.0 /100WBC 08/17/24 06:49 Sodium 140 mmol/L (136-145) 08/17/24 06:49 Potassium 4.1 mmol/L (3.5-5.1) 08/17/24 06:49 Chloride 104 mmol/L (98-107) 08/17/24 06:49 Carbon Dioxide 23 mmol/L (22-29) 08/17/24 06:49 Anion Gap 17.1 (5-19) 08/17/24 06:49 BUN 13 mg/dL (6-20) 08/17/24 06:49 Creatinine 0.8 mg/dL (0.7-1.2) 08/17/24 06:49 GFR Calculation 108.2 mL/min (90-130) 08/17/24 06:49 Glucose 92 mg/dL (65-115) 08/17/24 06:49 Calculated Osmolality 290 mOsm/kg (285-295) 08/17/24 06:49 Calcium 9.3 mg/dL (8.5-10.5) 08/17/24 06:49 Total Bilirubin 0.2 mg/dL (0.15-1.2) 08/17/24 06:49 AST 18 U/L (0-40) 08/17/24 06:49 ALT 14 U/L (0-41) 08/17/24 06:49 Alkaline Phosphatase 81 U/L (40-130) 08/17/24 06:49 Total Protein 7.8 g/dL (6.6-8.7) 08/17/24 06:49 Albumin 4.2 g/dL (3.5-5.2) 08/17/24 06:49 Globulin 3.6 g/dL (1.3-4.6) 08/17/24 06:49 Lipase 65 U/L (13-60) H 08/17/24 06:49 Urine Color Yellow (Yellow) 08/17/24 08:36 Urine Appearance Clear (CLEAR) 08/17/24 08:36 Urine pH 7.5 (5-7) 08/17/24 08:36 Ur Specific [place] 1.020 (1.005-1.030) 08/17/24 08:36 Urine Protein Negative (Negative) 08/17/24 08:36 Urine Glucose (UA) Negative (Normal) 08/17/24 08:36 Urine Ketones Negative (Negative) 08/17/24 08:36 Urine Blood Negative (Negative) 08/17/24 08:36 Urine Nitrate Negative (Negative) 08/17/24 08:36 Urine Bilirubin Negative (Negative) 08/17/24 08:36 Urine Urobilinogen 1.0 mg/dL (Negative) 08/17/24 08:36 Ur Leukocyte Esterase Negative (Negative) 08/17/24 08:36 Urine RBC 0-2 /hpf (0-2) 08/17/24 08:36 Urine WBC 0-5 /hpf (0-5) 08/17/24 08:36 Ur Squamous Epith Cells 0-5 /hpf (0-5) 08/17/24 08:36 Amorphous Sediment Not Reportable 08/17/24 08:36 Urine Bacteria None seen /hpf (NONE) 08/17/24 08:36 Hyaline Casts 0-4 /lpf H 08/17/24 08:36 All radiology interpretation(s) finalized by discharge Discharge Plan Discharge Patient Disposition: Home Clinical Impression: Dyspepsia and disorder of function of stomach Condition: Stable Prescriptions: No Action diphenhydramine HCl [Banophen] 50 mg capsule 50 mg PO QID PRN (Reason: Allergic Reaction) [place] Cough Drops 3.2 mg lozenge 3.2 mg mucous membrane Q2H PRN (Reason: Cough) hemorroidal cream 1 applic topical BID PRN (Reason: irritation) hydrocortisone [Anti-Itch (HC)] 1 % cream 1 applic topical QID PRN (Reason: Itching) hydroxyzine pamoate 50 mg capsule 50 mg PO QID PRN (Reason: Anxiety) ibuprofen 400 mg tablet 400 mg PO Q6H PRN (Reason: Pain) polyethylene glycol 3350 17 gram/dose powder 4 g PO TID PRN (Reason: Constipation) sennosides-docusate sodium [Senna-Time S] 8.6-50 mg tablet 1 tab-cap PO BID PRN (Reason: Constipation) hydroxyzine HCl 25 mg tablet 25 mg PO TID divalproex 500 mg tablet extended release 24 hr 2,000 mg PO .HS divalproex 500 mg tablet extended release 24 hr 500 mg PO .AM levothyroxine 50 mcg capsule 50 mcg PO .AM clonazepam 0.5 mg tablet 0.5 mg PO BID jkh-ztvmm-rckh-lidocaine Ointment 1 ea topical DAILY PRN (Reason: cuts) ft fiberlax psyllium husk 160 mg PO BID carbamazepine 200 mg tablet 400 mg PO BID Rx Instructions: noon, evening atorvastatin 20 mg tablet 20 mg PO .Night Rx Instructions: Every night with dinner. carbamazepine 200 mg tablet 600 mg PO .AM potassium chloride 20 mEq tablet extended release 20 meq PO DAILY Rx Instructions: Take with food. Calcium 600 with Vitamin D3 600 mg-10 mcg (400 unit) tablet,chewable 1 tab PO BID Vicks DayQuil Cough 5 mg/5 mL syrup 10 mg PO BID PRN (Reason: Cough) quetiapine 50 mg tablet 50 mg PO .HS Qty: 30 11RF risperidone 2 mg tablet 2 mg PO BID Qty: 60 11RF paroxetine HCl 40 mg tablet 40 mg PO DAILY Qty: 30 11RF loperamide [Imodium A-D] 2 mg capsule 2 mg PO Q6H PRN (Reason: loose stool) Qty: 20 0RF polyethylene glycol 3350 [Miralax] 17 gram/dose powder 17 g PO BID 7 Days Qty: 238 0RF topiramate 100 mg tablet See Rx Instructions .ROUTE .COMPLEX Rx Instructions: TAKE 2 AND 1/2 TABLETS BY MOUTH IN THE MORNING & TAKE THREE TABLETS IN THE EVENING polyethylene glycol 3350 [Miralax] 17 gram powder in packet 17 g PO DAILY 30 Days Qty: 30 3RF pantoprazole 40 mg tablet,delayed release (DR/EC) 40 mg PO ONCE Qty: 30 3RF Discharge Orders: Discharge ED (Routine); Ordered 08/17/24 Ordered By: Paco Rebolledo Referrals: Kacey Suarez FNP [Primary Care Provider, Unknown] Discharge Diet: Usual diet Discharge Activity: Resume usual activity Patient Instructions: Opioid Safety, Pain Management Activity Restrictions/Additional Instructions: Thank you for choosing [facility] for your healthcare needs today. It is very important that you follow up as instructed or that you return to the Emergency Department should you have concerns or if your condition changes or worsens in any way. You were seen in the emergency room with a complaint of abdominal pain and left flank pain. Laboratory test did not show any clinically significant abnormalities there was a very slight increase in your lipase. This is likely due to dietary changes and recent large amount of food intake. You did also note to have some musculoskeletal discomfort in that same area. CT did not show any abnormalities. Recommend you continue your currently prescribed medications as per your primary care physician's care plans. Also recommend following dietary recommendations from your primary care doctor including the 1800 -calorie/day diet. If you have any further problems follow-up with primary care physician. Print Language: Ukrainian Coding Level of Care Code ED [employer] Assembler for Ambar Carmona
[2024-08-17 06:42] VITALS: BP 144/65; PULSE 73; RESP 18; TEMP 36.6; O2SAT 100; BMI 51.5
[2024-08-17 06:59] LABS: Basophils % 0.5 %; Eosinophils # 0.1 10^3/uL (0.0-0.8); Hematocrit 39.7 % (37-53); Lymphocytes # 1.5 10^3/uL (0.8-4.8); Lymphocytes % 24.2 %; Mean Corpuscular HGB Conc 30.7 g/dL (30-55); Mean Corpuscular Hemoglobin 30.3 pg (27-33); Mean Corpuscular Volume 98.5 fl (82-101); Mean Platelet Volume 10.1 fL (7.4-10.4); Monocytes # 0.9 10^3/uL (0.2-0.9); Monocytes % 15.2 %; Neutrophils # 3.51 10^3/uL (1.8-7.7); Neutrophils % 58.1 %; Nucleated Red Blood Cells % 0 %; Platelet Count 178 10^3/cmm (157-399); Red Blood Count 4.03 10^6/uL (3.85-5.65); Red Cell Distribution Width 13.5 % (12.1-15.1); White Blood Count 6.04 10^3/uL (3.29-11.43)
[2024-08-17 07:17] LABS: Alanine Aminotransferase 14 U/L (0-41); Albumin Level 4.2 g/dL (3.5-5.2); Alkaline Phosphatase 81 U/L (40-130); Anion Gap 17.1 (5-19); Aspartate Amino Transferase 18 U/L (0-40); Blood Urea Nitrogen 13 mg/dL (6-20); Calcium 9.3 mg/dL (8.5-10.5); Carbon Dioxide 23 mmol/L (22-29); Chloride 104 mmol/L (98-107); Creatinine Clr Calc Pharmacy 204.5419; Globulin 3.6 g/dL (1.3-4.6); Glomerular Filtration Rate 108.2 mL/min (90-130); Glucose 92 mg/dL (65-115); Lipase 65 U/L (13-60); Osmolality Calculated 290 mOsm/kg (285-295); Potassium 4.1 mmol/L (3.5-5.1); Sodium 140 mmol/L (136-145); Total Bilirubin 0.2 mg/dL (0.15-1.2); Total Protein 7.8 g/dL (6.6-8.7)
--- NOTE | 2024-08-17 08:07 | CT_ITS ---
WS: [id number] CT ABDOMEN PELVIS TECHNIQUE: Noncontrast CT of the abdomen and pelvis with coronal and sagittal reformatted images. CLINICAL INFORMATION: Abdominal pain - LUQ elevated lipase COMPARISON: None. DLP: 1647.[address] scans at [facility] use at least one of these dose optimization techniques: automated exposure control; mA and/or kV adjustment per patient size (includes targeted exams where dose is matched to clinical indication); or iterative reconstruction. FINDINGS: Normal noncontrast liver and spleen. Small esophageal hiatal hernia. Adrenal glands are normal. No hydronephrosis in either kidney. Noncontrast pancreas appears normal. Normal caliber abdominal aorta. Normal sigmoid colon. No evidence of small or large bowel obstruction. No free fluid in the abdomen or pelvis. Subsegmental atelectasis in the lung bases. CT/CT abdomen pelvis wo con [id number] IMPRESSION: 1. No hydronephrosis in either kidney. 2. Noncontrast pancreas appears normal. No evidence of acute pancreatitis. 3. Small esophageal hiatal hernia. 4. Subsegmental atelectasis in the lung bases.
[2024-08-17 08:42] LABS: Bilirubin Urine Negative (Negative); Blood Urine Negative (Negative); Glucose Urine UA Negative (Normal); Ketones Urine Negative (Negative); Leukocyte Esterase Urine Negative (Negative); Nitrate Urine Negative (Negative); Protein Urine Negative (Negative); Urine Appearance Clear (CLEAR); Urine Color Yellow (Yellow); pH Urine 7.5 (5-7)
[2024-08-17 08:47] LABS: Add Urine Microscopic? YES; Bacteria Urine None Seen /hpf; Hyaline Casts Urine 0-4 /lpf; RBC Urine 0-2 /hpf (0-2); Squamous Epithelial Cell Urine 0-5 /hpf (0-5); WBC Urine 0-5 /hpf (0-5)
[2024-08-17 09:03] VITALS: BP 122/67; PULSE 68; O2SAT 99
[2024-08-17 09:04] VITALS: BP 122/67; PULSE 68; O2SAT 99
== END 2024-08-17 09:05 | disposition home or self-care (01) ==
PROVIDERS: Emergency Provider Family Medicine; PCP Nurse Practitioner Family
DX: K30 Functional dyspepsia (principal)
CPT/HCPCS: 74176; 80053; 81001; 83690; 85025; 99284

== ENCOUNTER → 2024-08-24 09:34 | Outpatient (BNVA) | payer MEDICARE, MEDICAID, SELFPAY | PROVIDERS: PCP Nurse Practitioner Family; Referring Provider Specialist; Visit Provider Specialist | DX: R56.9 Unspecified convulsions (principal) | CPT/HCPCS: 95819 ==

== ENCOUNTER 2024-08-24 16:47 | Inpatient (IN) | payer MEDICARE, MEDICAID, SELFPAY ==
[2024-08-24] VITALS (9 sets, daily range): BP systolic 105–147; BP diastolic 78–108; PULSE 64–86; RESP 17–73; TEMP 36.6–36.8; O2SAT 97–100; BMI 49.5
--- NOTE | 2024-08-24 17:15 | ECG_ITS ---
[employer] Test Date: 2024-08-24 Pat Name: Herrera Garza Department: Room: Gender: Male Digital Data Analyst: : 1985 Requested By: Doron Greene Order Number: [id number] Skylar MD: Dago Wan M.D. Measurements Intervals [place] Rate: 69 P: 43 [place]: 194 QRS: -52 QRSD: 169 T: 2 QT: 438 QTc: 471 Interpretive Statements SINUS RHYTHM RIGHT BUNDLE BRANCH BLOCK [120+ ms QRS DURATION, UPRIGHT V1, 40+ ms S IN I/aVL/V4/V5/V6] LEFT ANTERIOR FASCICULAR BLOCK [QRS AXIS <= -45, QR IN I, RS IN II] INFERIOR MYOCARDIAL INFARCTION , PROBABLY OLD [40+ ms Q WAVE AND/OR ST/T ABNORMALITY IN II/aVF] Compared to ECG 03/30/2024 19:27:31 Left anterior fascicular block now present Myocardial infarct finding now present Left-axis deviation no longer present Electronically Signed On 08-25-2024 21:49:00 CDT by Dago Wan M.D. [id number] [id number]
--- NOTE | 2024-08-24 17:15 | CTR_ITS ---
PROCEDURE INFORMATION: Exam: CT Head Without Contrast Exam date and time: 08/24/2024 5:37 PM Age: 39 years old Clinical indication: Stroke-like symptoms; Other: Vertigo; Jerson lower extremity weakness; Additional info: Symptoms of acute stroke TECHNIQUE: Imaging protocol: Computed tomography of the head without contrast. Radiation optimization: All CT scans at this facility use at least one of these dose optimization techniques: automated exposure control; mA and/or kV adjustment per patient size (includes targeted exams where dose is matched to clinical indication); or iterative reconstruction. Other technique: STROKE PROTOCOL was implemented. COMPARISON: No relevant prior studies available. RADIATION DOSE METRICS: Total DLP (mGy-cm): 2303.24 FINDINGS: Brain: No midline shift. Ventricles, cisterns, and sulci are normal. No mass, acute infarct, hemorrhage, or extraaxial fluid collection. Cerebral ventricles: No ventriculomegaly. Paranasal sinuses: Visualized sinuses are unremarkable. No fluid levels. Mastoid air cells: Visualized mastoid air cells are well aerated. Bones: Unremarkable. No acute fracture. Soft tissues: Unremarkable. CT/CT head thrombolytic [id number] IMPRESSION: No acute intracranial abnormality. ASSESSMENT: ASPECTS ([place]isa Stroke Program Early CT Score) is 10.
--- NOTE | 2024-08-24 17:18 | W.ED.WEAKNES ---
HPI - Weakness General: Chief complaint: Weakness Stated complaint: Gen Weakness Time Seen by Provider: 08/24/24 16:48 History of Present Illness: Chief complaint is my feet are dizzy. Patient states he cannot walk. He states that he was fine at 4:00 this morning and went to bed for a sleep study and slept all day until they woke him up at 4 PM. When he tried to get up his feet were not working and he states that they go their own direction and he cannot walk. He did fall but did not have any injury. He could not walk and so they brought him here. [facility] ED PFSH: Medical History Generalized epilepsy Generalized anxiety disorder Mosaic Down syndrome Intellectual disability Psychiatric care Social History Smoking and tobacco/nicotine status: never used tobacco/nicotine Physical Exam Narrative: EXAM NARRATIVE: Patient is alert oriented mildly anxious. Neck is supple. Pupils are equally reactive. Patient has rotary nystagmus. Patient has some intermittent disconjugate gaze. Speech is clear. Neck is supple. No tenderness over neck or back. Abdomen soft nontender. Extremities warm well-perfused. Strong intact pulses both feet. No calf tenderness or pitting edema. No drift in his arms or legs. He has intact sensation in his arms and legs. No facial droop. TMs are normal bilaterally. Skin is warm and dry. No rash in exposed areas. Course Vital Signs: Vital signs: Vital Signs Temperature 98.1 F 08/24/24 16:50 Pulse Rate 73 08/24/24 17:59 Respiratory Rate 18 08/24/24 16:50 Blood Pressure 134/94 08/24/24 17:59 Pulse Oximetry 99 08/24/24 17:59 Oxygen Delivery Me thod Room Air 08/24/24 17:59 MDM - Weakness Medical Decision Making Patient presents with rotary nystagmus and some disconjugate gaze intermittently. The patient states he does have a history of having double vision off and on. Patient is on 2 seizure medications. Adverse effect of the seizure medications considered. He is also on several mental health medications. Serotonin syndrome considered however he has no muscular rigidity and not suggestive of serotonin syndrome on exam and history. He denies any change or new medications. No known recent seizure. His speech is clear and no findings to suggest active seizures. Stroke certainly considered. Patient could have central cause of vertigo. Patient is able to move his legs fine and he thinks that the problem is that his legs are not working right and describes it as dizziness of his legs however he has intact pulses motor and sensation on exam. He does have some chronic back pain but he states this is unchanged and he moves freely at the back and had no vertebral tenderness on exam and no focal weakness in his legs. He denies a headache. Central infection not suggested by exam or history. No headache and his neck is supple and no meningeal signs and he denies any recent illness. Patient was sent for CT of the head and CT angio. This did not show evidence of acute process. I consulted with Dr. Cisse. If patient symptoms do not clear up with treatment with meclizine plan to admit for further evaluation and consideration for MRI. CBC CMP and EKG ordered. I give the patient meclizine 25 mg p.o. Patient cannot even sit up on his own in the bed currently even after meclizine. Patient clearly will not be safe to discharge home and needs further workup for posterior circulation stroke. Patient last known well according to history from the patient and from what the electric meter tester shop who comes with him is aware of would have been 4:00 this morning. Patient EKG to my interpretation shows sinus rhythm with right bundle branch block and nonspecific ST segment changes. Patient denies any chest pain or chest discomfort. He did have inferior Q waves. CBC CMP did not show significant abnormality to explain his symptoms. I consulted with Dr. Hinton who accepts patient for admission. Lab Data 08/24/24 17:20 08/24/24 17:[address] 08/24/24 17:15 IMPRESSION: No acute intracranial abnormality. ASSESSMENT: ASPECTS (Lisa Stroke Program Early CT Score) is 10. ADDENDUM: 08/24/24 9219 THIS REPORT CONTAINS FINDINGS THAT MAY BE CRITICAL TO PATIENT CARE. The findings were verbally communicated via telephone conference with CARLOS ALBERTO SWEENEY at 6:02 PM CDT on 08/24/2024. The findings were acknowledged and understood. Head/Neck CTA 08/24/24 17:38 IMPRESSION: No large vessel stenosis or occlusion. IMPRESSION: No hemodynamically significant stenosis. REFERENCES: NASCET CRITERIA. The degree of stenosis in the cervical segment of the internal carotid artery is based on NASCET criteria. Normal is no stenosis. Mild is less than 50% stenosis. Moderate is 50-69% stenosis. Severe is 70% to 99% stenosis. Total occlusion is no detectable patent lumen. ADDENDUM: 08/24/24 187 THIS REPORT CONTAINS FINDINGS THAT MAY BE CRITICAL TO PATIENT CARE. The findings were verbally communicated via telephone conference with CARLOS ALBERTO SWEENEY at 6:12 PM CDT on 08/24/2024. The findings were acknowledged and understood. Laboratory Results WBC 4.83 10^3/uL (3.29-11.43) 08/24/24 17:20 RBC 3.84 10^6/uL (3.85-5.65) L 08/24/24 17:20 Hgb 11.60 g/dL (11.27-16.99) 08/24/24 17:20 Hct 37.5 % (37-53) 08/24/24 17:20 MCV 97.7 fl (82-101) 08/24/24 17:20 MCH 30.2 pg (27-33) 08/24/24 17:20 MCHC 30.9 g/dL (30-55) 08/24/24 17:20 RDW 13.4 % (12.1-15.1) 08/24/24 17:20 Plt Count 206 10^3/cmm (157-399) 08/24/24 17:20 MPV 9.8 fL (7.4-10.4) 08/24/24 17:20 Neut % (Auto) 54.3 % 08/24/24 17:20 Lymph % (Auto) 24.6 % 08/24/24 17:20 Wilkinson % (Auto) 14.9 % 08/24/24 17:20 Eos % (Auto) 1.7 % 08/24/24 17:20 Baso % (Auto) 0.8 % 08/24/24 17:20 Neut # (Auto) 2.62 10^3/uL (1.8-7.7) 08/24/24 17:20 Lymph # (Auto) 1.2 10^3/uL (0.8-4.8) 08/24/24 17:20 Wilkinson # (Auto) 0.7 10^3/uL (0.2-0.9) 08/24/24 17:20 Eos # (Auto) 0.1 10^3/uL (0.0-0.8) 08/24/24 17:20 Baso # (Auto) 0.0 10^3/uL (0.0-0.1) 08/24/24 17:20 Nucleated RBC % (auto) 0 % 08/24/24 17:20 Nucleated RBCs # 0.0 /100WBC 08/24/24 17:20 Sodium 145 mmol/L (136-145) 08/24/24 17:20 Potassium 4.1 mmol/L (3.5-5.1) 08/24/24 17:20 Chloride 107 mmol/L (98-107) 08/24/24 17:20 Carbon Dioxide 24 mmol/L (22-29) 08/24/24 17:20 Anion Gap 18.1 (5-19) 08/24/24 17:20 BUN 14 mg/dL (6-20) 08/24/24 17:20 Creatinine 0.7 mg/dL (0.7-1.2) 08/24/24 17:20 GFR Calculation 126.2 mL/min (90-130) 08/24/24 17:20 Glucose 97 mg/dL (65-115) 08/24/24 17:20 POC Glucose 103 mg/dL (70-110) 08/24/24 17:24 Calculated Osmolality 300 mOsm/kg (285-295) H 08/24/24 17:20 Calcium 8.5 mg/dL (8.5-10.5) 08/24/24 17:20 Total Bilirubin 0.2 mg/dL (0.15-1.2) 08/24/24 17:20 AST 21 U/L (0-40) 08/24/24 17:20 ALT 19 U/L (0-41) 08/24/24 17:20 Alkaline Phosphatase 72 U/L (40-130) 08/24/24 17:20 Total Protein 7.0 g/dL (6.6-8.7) 08/24/24 17:20 Albumin 3.9 g/dL (3.5-5.2) 08/24/24 17:20 Globulin 3.1 g/dL (1.3-4.6) 08/24/24 17:20 Valproic Acid 53.3 ug/mL (50-100) 08/24/24 17:20 All radiology interpretation(s) finalized by discharge Discharge Plan Discharge Patient Disposition: Placed in Observation Clinical Impression: Disequilibrium, Ambulatory dysfunction Coding Level of Care Code ED Chip Bin Conveyor Tender for Chg Fwd Related Data Home Medications ?Medication ?Instructions ?Recorded ?Confirmed atorvastatin 20 mg tablet 20 mg PO .Night 12/23/23 08/24/24 calcium 600 mg (as carbonate)-vit 1 tab PO BID 12/23/23 08/24/24 D3 10 mcg (400 unit) chewable tablet (Calcium 600 with Vitamin D3) carbamazepine 200 mg tablet 400 mg PO BID 12/23/23 08/24/24 carbamazepine 200 mg tablet 600 mg PO .AM 12/23/23 08/24/24 clonazepam 0.5 mg tablet 0.5 mg PO BID 12/23/23 08/24/24 diphenhydramine HCl 50 mg capsule 50 mg PO QID PRN Allergic Reaction 12/23/23 08/24/24 (Banophen) divalproex 500 mg tablet,extended 2,000 mg PO .HS 12/23/23 08/24/24 release 24 hr divalproex 500 mg tablet,extended 500 mg PO .AM 12/23/23 08/24/24 release 24 hr ft fiberlax psyllium husk 160 mg PO BID 12/23/23 08/24/24 hemorroidal cream 1 applic topical BID PRN irritation 12/23/23 08/24/24 hydrocortisone 1 % topical cream 1 applic topical QID PRN Itching 12/23/23 08/24/24 (Anti-Itch (hydrocortisone)) hydroxyzine HCl 25 mg tablet 25 mg PO TID 12/23/23 08/24/24 hydroxyzine pamoate 50 mg capsule 50 mg PO QID PRN Anxiety 12/23/23 08/24/24 ibuprofen 400 mg tablet 400 mg PO Q6H PRN Pain 12/23/23 08/24/24 levothyroxine 50 mcg capsule 50 mcg PO .AM 12/23/23 08/24/24 menthol 3.2 mg lozenges ([place] 3.2 mg mucous membrane Q2H PRN 12/23/23 08/24/24 Cough Drops) Cough grb-vurie-uxgy-lidocaine topical 1 ea topical DAILY PRN cuts 12/23/23 08/24/24 ointment polyethylene glycol 3350 17 4 g PO TID PRN Constipation 12/23/23 08/24/24 gram/dose oral powder potassium chloride 20 mEq 20 meq PO DAILY 12/23/23 08/24/24 tablet,extended release sennosides 8.6 mg-docusate sodium 1 tab-cap PO BID PRN Constipation 12/23/23 08/24/24 50 mg tablet (Senna-Time S) dextromethorphan HBr 5 mg/5 mL 10 mg PO BID PRN Cough 01/28/24 08/24/24 oral syrup (Vicks DayQuil Cough) topiramate 100 mg tablet See Rx Instructions .Route .COMPLEX 06/21/24 08/24/24 Previous Rx's ?Medication ?Instructions ?Recorded paroxetine HCl 40 mg tablet 40 mg PO DAILY #30 tabs 01/28/24 quetiapine 50 mg tablet 50 mg PO .HS #30 tabs 01/28/24 risperidone 2 mg tablet 2 mg PO BID #60 tabs 01/28/24 loperamide 2 mg capsule (Imodium 2 mg PO Q6H PRN loose stool #20 03/08/24 A-D) caps polyethylene glycol 3350 17 17 g PO BID 7 days #238 grams 06/02/24 gram/dose oral powder (Miralax) pantoprazole 40 mg tablet,delayed 40 mg PO ONCE #30 tabs 06/23/24 release polyethylene glycol 3350 17 gram 17 g PO DAILY 30 days #30 ea 06/23/24 oral powder packet (Miralax) amoxicillin 875 mg-potassium 1 tab PO BID 7 days #14 tabs 08/19/24 clavulanate 125 mg tablet dicyclomine 10 mg capsule 10 mg PO TID diarrhea, cramping 08/19/24 #12 caps Allergies Allergy/AdvReac Type Severity Reaction Status Date / Time No Known Allergies Allergy Verified 08/24/24 09:50
[2024-08-24 17:33] LABS: Glucose Point of Care 103 mg/dL (70-110)
[2024-08-24 17:34] LABS: Basophils % 0.8 %; Eosinophils # 0.1 10^3/uL (0.0-0.8); Eosinophils % 1.7 %; Hematocrit 37.5 % (37-53); Lymphocytes # 1.2 10^3/uL (0.8-4.8); Lymphocytes % 24.6 %; Mean Corpuscular HGB Conc 30.9 g/dL (30-55); Mean Corpuscular Hemoglobin 30.2 pg (27-33); Mean Corpuscular Volume 97.7 fl (82-101); Mean Platelet Volume 9.8 fL (7.4-10.4); Monocytes # 0.7 10^3/uL (0.2-0.9); Monocytes % 14.9 %; Neutrophils # 2.62 10^3/uL (1.8-7.7); Neutrophils % 54.3 %; Nucleated Red Blood Cells % 0 %; Platelet Count 206 10^3/cmm (157-399); Red Blood Count 3.84 10^6/uL (3.85-5.65); Red Cell Distribution Width 13.4 % (12.1-15.1); White Blood Count 4.83 10^3/uL (3.29-11.43)
--- NOTE | 2024-08-24 17:38 | CTR_ITS ---
PROCEDURE INFORMATION: Exam: CTA Head With Contrast, Arteriography Exam date and time: 08/24/2024 5:42 PM Age: 39 years old Clinical indication: Stroke-like symptoms; Other: Vertigo; Jerson lower extremity weakness; Additional info: Disequilibrium TECHNIQUE: Imaging protocol: Computed tomographic angiography of the head with contrast. Exam focused on the arteries. 3D rendering (Not supervised by radiologist): MIP and/or 3D reconstructed images were created by the technologist. Radiation optimization: All CT scans at this facility use at least one of these dose optimization techniques: automated exposure control; mA and/or kV adjustment per patient size (includes targeted exams where dose is matched to clinical indication); or iterative reconstruction. Contrast material: OMNI 350; Contrast volume: 100 ml; Contrast route: INTRAVENOUS (IV); COMPARISON: CT head thrombolytic [id number] 08/24/2024 5:37 PM RADIATION DOSE METRICS: Total DLP (mGy-cm): 572.42 FINDINGS: ANTERIOR CIRCULATION: Right internal carotid artery: Intracranial segment is patent with no significant stenosis. No aneurysm. Right middle cerebral artery: No occlusion or significant stenosis. No aneurysm. Right anterior cerebral artery: No occlusion or significant stenosis. No aneurysm. Left internal carotid artery: Intracranial segment is patent with no significant stenosis. No aneurysm. Left middle cerebral artery: No occlusion or significant stenosis. No aneurysm. Left anterior cerebral artery: No occlusion or significant stenosis. No aneurysm. POSTERIOR CIRCULATION: Right vertebral artery: No occlusion or significant stenosis. No aneurysm. Left vertebral artery: No occlusion or significant stenosis. No aneurysm. Basilar artery: No occlusion or significant stenosis. No aneurysm. Right posterior cerebral artery: No occlusion or significant stenosis. No aneurysm. Left posterior cerebral artery: No occlusion or significant stenosis. No aneurysm. Partial origin of the left TABLE AND DESK FINISHER. Brain: No definite mass, mass effect, or midline shift. Cerebral ventricles: No ventriculomegaly. Bones/joints: Unremarkable. No acute fracture. Soft tissues: Unremarkable. PROCEDURE INFORMATION: Exam: CTA Neck With Contrast Exam date and time: 08/24/2024 5:42 PM Age: 39 years old Clinical indication: Stroke-like symptoms; Other: Vertigo; Jerson lower extremity weakness; Additional info: Disequilibrium TECHNIQUE: Imaging protocol: Computed tomographic angiography of the neck with contrast. Exam focused on the cervical segments of the vasculature. 3D rendering (Not supervised by radiologist): MIP and/or 3D reconstructed images were created by the technologist. Radiation optimization: All CT scans at this facility use at least one of these dose optimization techniques: automated exposure control; mA and/or kV adjustment per patient size (includes targeted exams where dose is matched to clinical indication); or iterative reconstruction. Contrast material: OMNI 350; Contrast volume: 100 ml; Contrast route: INTRAVENOUS (IV); COMPARISON: CT head thrombolytic [id number] 08/24/2024 5:37 PM RADIATION DOSE METRICS: Total DLP (mGy-cm): 572.42 FINDINGS: Tubes, catheters and devices: Vagus nerve stimulator in place. Right common carotid artery: No stenosis. No dissection or occlusion. Right internal carotid artery: No stenosis of the extracranial segment. No dissection or occlusion. Right external carotid artery: No occlusion or stenosis of the origin. Left common carotid artery: No stenosis. No dissection or occlusion. Left internal carotid artery: No stenosis of the extracranial segment. No dissection or occlusion. Left external carotid artery: No occlusion or stenosis of the origin. Right vertebral artery: No stenosis. No dissection or occlusion. Left vertebral artery: No stenosis. No dissection or occlusion. Soft tissues: Normal. No significant soft tissue swelling. Bones/joints: No acute fracture. CT/CT angio headneck* [id number] IMPRESSION: No large vessel stenosis or occlusion. IMPRESSION: No hemodynamically significant stenosis. REFERENCES: NASCET CRITERIA. The degree of stenosis in the cervical segment of the internal carotid artery is based on NASCET criteria. Normal is no stenosis. Mild is less than 50% stenosis. Moderate is 50-69% stenosis. Severe is 70% to 99% stenosis. Total occlusion is no detectable patent lumen.
[2024-08-24] MEDS: iohexol 350 mg/mL 500 mL Btl (per mL) IV (17:47)
[2024-08-24 17:54] LABS: Valproic Acid Level 53.3 ug/mL (50-100)
[2024-08-24] MEDS: meclizine 25 mg tablet PO (17:56)
[2024-08-24 18:05] LABS: Alanine Aminotransferase 19 U/L (0-41); Albumin Level 3.9 g/dL (3.5-5.2); Alkaline Phosphatase 72 U/L (40-130); Anion Gap 18.1 (5-19); Aspartate Amino Transferase 21 U/L (0-40); Blood Urea Nitrogen 14 mg/dL (6-20); Calcium 8.5 mg/dL (8.5-10.5); Carbon Dioxide 24 mmol/L (22-29); Chloride 107 mmol/L (98-107); Creatinine Clr Calc Pharmacy 228.2541; Globulin 3.1 g/dL (1.3-4.6); Glomerular Filtration Rate 126.2 mL/min (90-130); Glucose 97 mg/dL (65-115); Osmolality Calculated 300 mOsm/kg (285-295); Potassium 4.1 mmol/L (3.5-5.1); Sodium 145 mmol/L (136-145); Total Bilirubin 0.2 mg/dL (0.15-1.2)
[2024-08-24] MEDS: aspirin 81 mg Chew Tablet 324 MG PO (18:41)
--- NOTE | 2024-08-24 19:29 | PC.NURSE ---
med surg nurse Juni to call back for report.
--- NOTE | 2024-08-24 20:19 | PM.HP ---
Providers/Chief Complaint Admitting Physician: Starr Hinton MD Primary Care Provider: ROBERT Fowler Chief Complaint: Gen Weakness History of Present Illness Herrera Garza is a 39 year old male with Mosaic Down's syndrome, known h/o seizure disorder, typically independent in ADLs. He underwent an EEG earlier today at Dr. Youssef's office and went home afterwards. He went to bed and on waking again, he noticed himself to have LE weakness, felt that his gait was unstable. Here he was noted to have a nystagmus. Stroke code was called. Ct head and CTA head and neck was without signs of acute stroke. He was not a Tpa candidate due to unknown time of onset of symptoms. Review of Systems General: Reports: 10 or more systems reviewed and unremarkable except in HPI and below Const: Denies: fever(s), chills or body aches Eyes: Denies: change in vision, blurry vision or photophobia ENMT: Reports: hoarseness; Denies: throat pain, enlarged tonsils, odynophagia or nasal congestion Card: Denies: chest pain, palpitations, irregular heart rhythm, edema, swelling of feet/ankles, lightheadedness, pre-syncope, dyspnea on exertion or orthopnea Resp: Denies: dyspnea, productive cough, non-productive cough, wheezing, stridor, pain on inspiration, change in phlegm color, hemoptysis or chest congestion GI: Denies: abdominal pain, nausea, vomiting, hematemesis, coffee ground emesis, dysphagia, heartburn, diarrhea, constipation, GI cramping, change in stool character, hematochezia or melena : Denies: flank pain, dysuria, urinary frequency, urinary urgency, urinary hesitancy or hematuria Musc: Denies: neck pain, back pain, extremity pain, joint swelling, joint warmth or deformity Neuro: Denies: headache(s), numbness in extremities, weakness in extremities, sensory changes, difficulty walking, frequent falls, dizziness, vertigo, behavioral changes, Slurred speech present or seizure-like activity Psych: Denies: anxiety, depression, suicidal ideation or homicidal ideation Endo: Denies: polyuria, polydipsia, tired all the time, cold intolerance or hot flashes Sorin/Lymph: Denies: easy bruising or easy bleeding Medications/Allergies Home Medications ?Medication ?Instructions ?Recorded ?Confirmed ?Last Taken ?Type atorvastatin 20 mg tablet 20 mg PO .Night 12/23/23 08/25/24 08/23/24 History carbamazepine 200 mg tablet See Rx Instructions .Route .COMPLEX 12/23/23 08/25/24 08/24/24 History clonazepam 0.5 mg tablet 0.5 mg PO BID 12/23/23 08/25/24 08/24/24 History diphenhydramine HCl 50 mg capsule 50 mg PO QID PRN Allergic Reaction 12/23/23 08/25/24 Unknown History (Banophen) divalproex 500 mg tablet,extended See Rx Instructions .Route .COMPLEX 12/23/23 08/25/24 08/24/24 History release 24 hr ft fiberlax psyllium husk 160 mg PO BID 12/23/23 08/25/24 08/24/24 History hydrocortisone 1 % topical cream 1 applic topical BID PRN Itching 12/23/23 08/25/24 Unknown History (Anti-Itch (hydrocortisone)) hydroxyzine HCl 25 mg tablet 25 mg PO TID 12/23/23 08/25/24 08/24/24 History hydroxyzine pamoate 50 mg capsule 50 mg PO QID PRN Anxiety 12/23/23 08/25/24 Unknown History menthol 3.2 mg lozenges ([place] 3.2 mg mucous membrane Q2H PRN 12/23/23 08/25/24 Unknown History Cough Drops) Cough polyethylene glycol 3350 17 4 g PO TID PRN Constipation 12/23/23 08/25/24 Unknown History gram/dose oral powder potassium chloride 20 mEq 20 meq PO DAILY 12/23/23 08/25/24 08/24/24 History tablet,extended release sennosides 8.6 mg-docusate sodium 1 tab-cap PO BID PRN Constipation 12/23/23 08/25/24 Unknown History 50 mg tablet (Senna-Time S) dextromethorphan HBr 5 mg/5 mL 10 mg PO BID PRN Cough 01/28/24 08/25/24 Unknown History oral syrup (Vicks DayQuil Cough) paroxetine HCl 40 mg tablet 40 mg PO DAILY #30 tabs 01/28/24 08/25/24 08/24/24 Rx quetiapine 50 mg tablet 50 mg PO .HS #30 tabs 01/28/24 08/25/24 08/23/24 Rx risperidone 2 mg tablet 2 mg PO BID #60 tabs 01/28/24 08/25/24 08/24/24 Rx loperamide 2 mg capsule (Imodium 2 mg PO Q6H PRN loose stool #20 03/08/24 08/25/24 Unknown Rx A-D) caps topiramate 100 mg tablet See Rx Instructions .Route .COMPLEX 06/21/24 08/25/24 08/24/24 History amoxicillin 875 mg-potassium 1 tab PO BID 7 days #14 tabs 08/19/24 08/25/24 08/24/24 Rx clavulanate 125 mg tablet dicyclomine 10 mg capsule 10 mg PO TID diarrhea, cramping 08/19/24 08/25/24 08/24/24 Rx #12 caps acetaminophen 325 mg tablet 650 mg PO Q6H PRN pain/fever 08/25/24 08/25/24 Unknown History qzpmexhyseqtkss-mktssvgnlxrqyod-YG 5 ml PO Q6H PRN Cold Symptoms 08/25/24 08/25/24 Unknown History 2 mg-30 mg-10 mg/5 mL oral syrup docusate sodium 100 mg capsule 100 mg PO QPM 08/25/24 08/25/24 08/23/24 History ibuprofen 200 mg tablet 400 mg PO Q6H PRN pain/fever 08/25/24 08/25/24 Unknown History levothyroxine 75 mcg tablet 75 mcg PO QAM 08/25/24 08/25/24 08/24/24 History pantoprazole 40 mg tablet,delayed 40 mg PO DAILY 08/25/24 08/25/24 08/24/24 History release polyethylene glycol 3350 17 gram 17 g PO DAILY Constipation 08/25/24 08/25/24 Unknown History oral powder packet (Miralax) Allergies Allergy/AdvReac Type Severity Reaction Status Date / Time No Known Allergies Allergy Verified 08/24/24 09:50 PFSH Acute PFSH: Medical History Generalized epilepsy Generalized anxiety disorder Mosaic Down syndrome Intellectual disability Psychiatric care Social History Smoking and tobacco/nicotine status: never used tobacco/nicotine Vitals/I&O/Wt Last Vital Signs Temp 98.1 F 08/24/24 16:50 Pulse 64 08/24/24 20:08 Resp 73 H 08/24/24 19:30 BP 105/80 08/24/24 20:08 Pulse Ox 97 08/24/24 20:08 O2 Del Method Room Air 08/24/24 19:30 Weight last 48 hrs Weight 165.561 kg Physical Exam Narrative: General: No acute distress, AO x3 HEENT: PERRLA, pupils bilaterally equal and reactive, pallors not present Chest: Normal vesicular breath sounds, no added sounds, equal good air entry bilaterally CVS: S1-S2 regular, no murmurs, no tachycardia, no gallops, no rubs Abdomen: Soft, nontender, no organomegaly, bowel sounds present Neuro: unsteady gait, unable to walk beyond a few steps, reports dizziness Data 08/25/24 05:15 08/25/24 05:15 A&P Assessment and plan (1) Mosaic Down syndrome: (2) Generalized epilepsy: (3) Seizures: (4) Nystagmus: (5) Ambulatory dysfunction: (6) Disequilibrium: Plan 39M with PMH as noted above presented with symptoms of weakness, dizziness and nsytagmus. CT head and CTA head neck without acute abnormalities. Start Asa 81mg po daily MRI brain to evaluate for posterior circulation stroke trial of meclizine 25mg po TID for dizziness Patient not a TNKase candidate due to unknown time of onset of symptoms neurology consult ordered from ER. Admit in observation PT/OT/speech eval Echocardiogram telemetry monitoring lipid panel, hba1c PDMP PDMP Reviewed: Not Reviewed Attestations Medical Necessity Statement*: less than 2 midnights stay anticipated Coding Level of Care Code Acute Code for g Fwd Diagnoses Mosaic Down syndrome Q90.1 Generalized epilepsy G40.309 Seizures R56.9 Nystagmus H55.00 Ambulatory dysfunction R26.2 Disequilibrium R42
[2024-08-24 20:45] LABS: Glucose Point of Care 108 mg/dL (70-110)
--- NOTE | 2024-08-24 20:54 | USCV_ITS ---
Herrera Garza Age: 39 Gender: M : 1985 Exam Date: 08/24/2024 21:05 Ordering Phys: Starr Hinton MD Technologist: SHAKA Exam Location: [facility] [place] Indication: acute stroke, ataxia, unable to walk, MORBID obesity BP: 127 / 89 HR: 71 Rhythm: Sinus Technical Quality: Adequate MEASUREMENTS (Male / Female) Normal Values 2D ECHO LV Diastolic Diameter PLAX 3.6 cm 4.2 - 5.9 / 3.9 - 5.3 cm IVS Diastolic Thickness 1.4 cm 0.6 - 1.0 / 0.6 - 0.9 cm IVS Systolic Thickness 1.9 cm LVPW Diastolic Thickness 1.7 cm 0.6 - 1.0 / 0.6 - 0.9 cm LVPW Systolic Thickness 1.9 cm LVOT Diameter 2.0 cm LV Ejection Fraction 2D Teich 55.6 % LV Ejection Fraction MOD 4C 61.5 % LV Ejection Fraction MOD 2C 60.1 % LV Ejection Fraction 2C AL 61.0 % LA Diameter 3.7 cm Aorta at Sinotubular Diameter 2.5 cm IVC Diameter 0.6 cm M-MODE LA Ao Ratio MM 1.2 AV Cusp Separation MM 1.7 cm DOPPLER AV Peak Velocity 191.0 cm/s LVOT Peak Velocity 90.0 cm/s AV Area Cont Eq vti 1.8 cm squared AV Area Cont Eq pk 1.5 cm squared MV Peak Velocity 115.0 cm/s MV Area PHT 3.2 cm squared Mitral E to A Ratio 1.5 TV Peak Velocity 219.0 cm/s TR Peak Velocity 232.0 cm/s TR Peak Gradient 21.5 mmHg TV Peak E Velocity 65.0 cm/s PV Peak Velocity 126.0 cm/s FINDINGS Left Ventricle Normal left ventricular size and systolic function, EF 61.5%. Mild left ventricular hypertrophy. No regional wall motion abnormalities.Grade I/IV diastolic dysfunction (abnormal relaxation filling pattern), normal to mildly elevated filling pressures. . Right Ventricle The right ventricle is normal in size and function. Right Atrium The right atrium is normal in size. Left Atrium The left atrium is normal in size. Mitral Valve No gross abnormalities noted Aortic Valve Thickened aortic valve. Tricuspid Valve Mild tricuspid valve regurgitation. Pulmonic Valve Pulmonic valve not well visualized. Pericardium Normal pericardium without effusion. Aorta Normal ascending aorta dimension. IVC Normal IVC dimension with <50% respiratory change of the inferior vena cava. CONCLUSIONS Normal left ventricular size and systolic function, EF 61.5%. Mild left ventricular hypertrophy. No regional wall motion abnormalities.Grade I/IV diastolic dysfunction (abnormal relaxation filling pattern), normal to mildly elevated filling pressures. Thickened aortic valve. Mild tricuspid valve regurgitation. There is no pericardial effusion. There are no intracardiac masses. No similar previous studies are available for comparison Dr Dago Wan MD FAC (Electronically Signed) Final Date: 25 August 2024 13:19 S
[2024-08-24] MEDS: atorvastatin 40 mg Tablet PO (22:03)
[2024-08-24] MEDS: quetiapine 25 mg Tablet 50 MG PO (22:37)
[2024-08-24] MEDS: divalproex ER 500 mg Tablet (24H) 1000 MG PO (22:37)
[2024-08-24 23:53] LABS: Bilirubin Urine Negative (Negative); Blood Urine Negative (Negative); Glucose Urine UA Negative (Normal); Ketones Urine Negative (Negative); Leukocyte Esterase Urine Negative (Negative); Nitrate Urine Negative (Negative); Protein Urine 1+ (Negative); Urine Appearance Clear (CLEAR); Urine Color Yellow (Yellow)
[2024-08-24 23:56] LABS: Add Urine Microscopic? YES; Bacteria Urine None Seen /hpf; Hyaline Casts Urine 0-4 /lpf; RBC Urine 0-2 /hpf (0-2); Squamous Epithelial Cell Urine 0-5 /hpf (0-5); WBC Urine 21-50 /hpf (0-5)
[2024-08-25] VITALS (7 sets, daily range): BP systolic 128–151; BP diastolic 81–98; PULSE 61–70; RESP 15–18; TEMP 36.4–36.8; O2SAT 96–98
[2024-08-25 00:22] LABS: Specific Gravity, Urine 1.074 (1.005-1.030); UA Slide Review UA Slide Review Perf
[2024-08-25 05:35] LABS: Basophils # 0.1 10^3/uL (0.0-0.1); Basophils % 1.5 %; Eosinophils # 0.1 10^3/uL (0.0-0.8); Eosinophils % 2.1 %; Hematocrit 35.4 % (37-53); Lymphocytes # 1.3 10^3/uL (0.8-4.8); Lymphocytes % 28.2 %; Mean Corpuscular HGB Conc 31.1 g/dL (30-55); Mean Corpuscular Hemoglobin 30.1 pg (27-33); Mean Platelet Volume 9.7 fL (7.4-10.4); Monocytes # 0.7 10^3/uL (0.2-0.9); Monocytes % 14.5 %; Neutrophils # 2.29 10^3/uL (1.8-7.7); Neutrophils % 48.2 %; Nucleated Red Blood Cells % 0 %; Platelet Count 240 10^3/cmm (157-399); Red Blood Count 3.65 10^6/uL (3.85-5.65); Red Cell Distribution Width 13.5 % (12.1-15.1); White Blood Count 4.75 10^3/uL (3.29-11.43)
[2024-08-25 05:50] LABS: Estmated Average Glucose 108; Hemoglobin A1C 5.4 % (4.0-6.0)
[2024-08-25 05:58] LABS: Alanine Aminotransferase 18 U/L (0-41); Albumin Level 3.6 g/dL (3.5-5.2); Alkaline Phosphatase 68 U/L (40-130); Anion Gap 13.7 (5-19); Aspartate Amino Transferase 19 U/L (0-40); Blood Urea Nitrogen 12 mg/dL (6-20); Calcium 8.5 mg/dL (8.5-10.5); Carbon Dioxide 23 mmol/L (22-29); Chloride 106 mmol/L (98-107); Chol HDL Ratio 4.02 mg/dL (1.0-5.00); Cholesterol 169 mg/dL (0-200); Creatinine Clr Calc Pharmacy 236.0758; Globulin 3.9 g/dL (1.3-4.6); Glomerular Filtration Rate 126.2 mL/min (90-130); Glucose 87 mg/dL (65-115); HDL Cholesterol 42 mg/dL (60-100); LDL Cholesterol Calculated 95 mg/dL (50-129); LDL HDL Ratio 2.26 RATIO (0.00-3.22); Osmolality Calculated 287 mOsm/kg (285-295); Potassium 3.7 mmol/L (3.5-5.1); Sodium 139 mmol/L (136-145); Total Bilirubin 0.2 mg/dL (0.15-1.2); Total Protein 7.5 g/dL (6.6-8.7); Triglycerides 161 mg/dL (0-150)
[2024-08-25 06:04] LABS: Slide Review Slide Review Perform
[2024-08-25] MEDS: carBAMazepine 200 mg Tablet 400 MG PO ×2 (09:13→17:13)
[2024-08-25] MEDS: aspirin 81 mg EC Tablet PO (09:13)
--- NOTE | 2024-08-25 09:51 | PC.CHAP ---
Pastoral Care Encounter/Spiritual Assessment Type of Contact [] Declined biomedical scientist visit [] Patient/Family/Request visit [] Outpatient visit [] Follow-up visit [] Physician referral [] Code/Alert [x] Routine visit [] Staff referral [] Actively dying [] Patient sleeping [] Family support [] [] Out of room [] Palliative care [] [] Receiving care in room [] Pre-surgical visit [] Trauma [] Long length of stay [] ICU visit [] Other: Relational/Emotional Strength [x] Patient feels connected with others/family/visitors/staff [] Distress [] Loneliness/isolation [] Abandonment Spirituality of Patient [x] Person of Corrina [] Attends Denominational of their Corrina [x] Believes in Prayer [] Reads Bible or Confucianism materials [] There are Spiritual issues to be addressed Licensing Specialist Interventions [x] Prayer [] Active listening [x] Non-anxious presence [x] Spiritual/emotional support [] Crisis/trauma care [] Spiritual counseling [] Bereavement support [] Provided bereavement packet [] Provided Bible/devotional materials [] Provided toy/stuffed animal, coloring book to patient or family member [] Provided Communion [] Anointing/Gar[place] [] Salvation [x] Completed spiritual assessment [] Other: Impact on Illness or Injury [] Angry [] Fearful [] Anxious [] Often cries [] Exhaustion [] Unable to work [] Unable to attend lutheran [] Unable to walk/stand [] Unable to read [] Unable to drive [] Unable to eat/drink [] Unable to sleep [] Unable to be with family [] Patient intubated [] Other: Summary Time spent with patient 5 min
--- NOTE | 2024-08-25 09:57 | PC.PHAR ---
Pt is from [facility] [employer] [phone]-Faxing current med list. 08/25/24 9:57am
--- NOTE | 2024-08-25 09:57 | PC.NURSE ---
staffing and scheduling coordinator rounds at 0930, gave patient stroke education book and went through it with him
--- NOTE | 2024-08-25 11:08 | PM.CONSULT ---
Providers/Reason For Consult Consulting Physician/Specialty*: Bruno Cisse MD neurology and epilepsy Reason for Consult*: Bilateral lower extremity weakness in an L2-L4 distribution associated with mid and low back pain Attending Physician: Starr Hinton MD Primary Care Provider: ROBERT Fowler History of Present Illness History of Present Illness Herrera Garza is a 39 year old male with a history of intractable epilepsy and vagal nerve stimulator followed by Dr. Youssef. The patient was reported to have a routine surface EEG recording performed on 08/24/2024. The patient stated that he went home but he noticed he was having trouble walking because of bilateral leg weakness, right side worse than the left and therefore the patient presented to the [facility] emergency department. In the emergency room metabolic lab for CBC and comprehensive metabolic panels were performed and revealed anemia but otherwise labs were unremarkable. Noncontrast head CT and CT angiogram of the head and neck performed on 08/24/2024 were unrevealing. Patient was admitted for evaluation. Neurology consult was obtained to assist in the patient's care since the patient continues to report bilateral leg weakness and low back pain and mid back pain. Drug allergies: None Current medications: Depakote ER 500 mg p.o. every morning and 2000 mg p.o. nightly Tegretol 400 mg p.o. twice daily Tegretol 600 mg p.o. every morning Topamax to use as directed Klonopin 0.5 mg p.o. twice daily Hydroxyzine 25 mg p.o. 3 times daily Hydroxyzine 50 mg p.o. 4 times daily Paxil 40 mg p.o. daily Seroquel 50 mg p.o. nightly Risperidone 2 mg p.o. twice daily MiraLAX 17 g per dose 4 g p.o. 3 times daily, as needed constipation Potassium chloride 20 mill equivalents p.o. daily Ibuprofen 400 mg p.o. every 6 hours as needed for pain Synthroid 50 mcg p.o. daily Loperamide 2 mg p.o. nightly as needed loose stools Menthol 3.2 mg lozenges to be applied to mucous membranes every 2 hours as needed for cough Calcium with vitamin D3 600 mg/400 international units p.o. daily Lipitor 20 mg p.o. nightly Protonix 40 mg p.o. daily Dextromethorphan 5 mg per 5 mL 10 mg p.o. twice daily, as needed Dicyclomine 10 mg p.o. 3 times daily for diarrhea and cramps Benadryl 50 mg p.o. 4 times daily, as needed allergic reaction Past medical history: Intractable generalized epilepsy Vagal nerve stimulator placement for intractable epilepsy GI bleed Disequilibrium Intellectual disability Mosaic Down syndrome Generalized anxiety disorder Habits: None Family history: Unable to obtain Review of Systems General: Reports: 10 or more systems reviewed and unremarkable except in HPI and below Musc: Reports: back pain and muscle weakness Neuro: Reports: weakness in extremities (Leg weakness right side worse than left in an L2-L4 distribution) Medications/Allergies Home Medications ?Medication ?Instructions ?Recorded ?Confirmed ?Last Taken ?Type atorvastatin 20 mg tablet 20 mg PO .Night 12/23/23 08/24/24 06/20/24 History calcium 600 mg (as carbonate)-vit 1 tab PO BID 12/23/23 08/24/24 06/21/24 History D3 10 mcg (400 unit) chewable tablet (Calcium 600 with Vitamin D3) carbamazepine 200 mg tablet 400 mg PO BID 12/23/23 08/24/24 06/21/24 History carbamazepine 200 mg tablet 600 mg PO .AM 12/23/23 08/24/24 06/23/24 05:30 History clonazepam 0.5 mg tablet 0.5 mg PO BID 12/23/23 08/24/24 06/23/24 05:30 History diphenhydramine HCl 50 mg capsule 50 mg PO QID PRN Allergic Reaction 12/23/23 08/24/24 Unknown History (Banophen) divalproex 500 mg tablet,extended 2,000 mg PO .HS 12/23/23 08/24/24 06/21/24 History release 24 hr divalproex 500 mg tablet,extended 500 mg PO .AM 12/23/23 08/24/24 06/23/24 05:30 History release 24 hr ft fiberlax psyllium husk 160 mg PO BID 12/23/23 08/24/24 06/21/24 History hemorroidal cream 1 applic topical BID PRN irritation 12/23/23 08/24/24 Unknown History hydrocortisone 1 % topical cream 1 applic topical QID PRN Itching 12/23/23 08/24/24 Unknown History (Anti-Itch (hydrocortisone)) hydroxyzine HCl 25 mg tablet 25 mg PO TID 12/23/23 08/24/24 06/21/24 History hydroxyzine pamoate 50 mg capsule 50 mg PO QID PRN Anxiety 12/23/23 08/24/24 Unknown History ibuprofen 400 mg tablet 400 mg PO Q6H PRN Pain 12/23/23 08/24/24 Unknown History levothyroxine 50 mcg capsule 50 mcg PO .AM 12/23/23 08/24/24 06/23/24 05:30 History menthol 3.2 mg lozenges (Hurricane 3.2 mg mucous membrane Q2H PRN 12/23/23 08/24/24 Unknown History Cough Drops) Cough fhh-lhivt-dpse-lidocaine topical 1 ea topical DAILY PRN cuts 12/23/23 08/24/24 Unknown History ointment polyethylene glycol 3350 17 4 g PO TID PRN Constipation 12/23/23 08/24/24 Unknown History gram/dose oral powder potassium chloride 20 mEq 20 meq PO DAILY 12/23/23 08/24/24 06/21/24 History tablet,extended release sennosides 8.6 mg-docusate sodium 1 tab-cap PO BID PRN Constipation 12/23/23 08/24/24 Unknown History 50 mg tablet (Senna-Time S) dextromethorphan HBr 5 mg/5 mL 10 mg PO BID PRN Cough 01/28/24 08/24/24 Unknown History oral syrup (Vicks DayQuil Cough) paroxetine HCl 40 mg tablet 40 mg PO DAILY #30 tabs 01/28/24 08/24/24 06/23/24 05:30 Rx quetiapine 50 mg tablet 50 mg PO .HS #30 tabs 01/28/24 08/24/24 06/20/24 Rx risperidone 2 mg tablet 2 mg PO BID #60 tabs 01/28/24 08/24/24 06/23/24 05:30 Rx loperamide 2 mg capsule (Imodium 2 mg PO Q6H PRN loose stool #20 03/08/24 08/24/24 Unknown Rx A-D) caps polyethylene glycol 3350 17 17 g PO BID 7 days #238 grams 06/02/24 08/24/24 Unknown Rx gram/dose oral powder (Miralax) topiramate 100 mg tablet See Rx Instructions .Route .COMPLEX 06/21/24 08/24/24 06/23/24 05:30 History pantoprazole 40 mg tablet,delayed 40 mg PO ONCE #30 tabs 06/23/24 08/24/24 Unknown Rx release polyethylene glycol 3350 17 gram 17 g PO DAILY 30 days #30 ea 06/23/24 08/24/24 Unknown Rx oral powder packet (Miralax) amoxicillin 875 mg-potassium 1 tab PO BID 7 days #14 tabs 08/19/24 08/24/24 Unknown Rx clavulanate 125 mg tablet dicyclomine 10 mg capsule 10 mg PO TID diarrhea, cramping 08/19/24 08/24/24 Unknown Rx #12 caps Allergies Allergy/AdvReac Type Severity Reaction Status Date / Time No Known Allergies Allergy Verified 08/24/24 09:50 Current Medications Generic Name Dose Route Start Last Admin Trade Name Freq PRN Reason Stop Dose Admin Aspirin 81 mg 08/25/24 09:00 08/25/24 09:13 Aspirin 81 Mg Ec Tablet PO 81 mg DAILY ORTIZ Administration Atorvastatin Calcium 40 mg 08/24/24 21:00 08/24/24 22:03 Atorvastatin 40 Mg Tablet PO 40 mg BEDTIME ORTIZ Administration Carbamazepine 400 mg 08/25/24 09:00 08/25/24 09:13 Carbamazepine 200 Mg Tablet PO 400 mg BID ORTIZ Administration Divalproex Sodium 1,000 mg 08/24/24 22:00 08/24/24 22:37 Divalproex Er 500 Mg Tablet (24h) PO 1,000 mg BEDTIME ORTIZ Administration Quetiapine Fumarate 50 mg 08/24/24 22:00 08/24/24 22:37 Quetiapine 25 Mg Tablet PO 50 mg BEDTIME ORTIZ Administration PFSH Acute PFSH: Medical History Generalized epilepsy Generalized anxiety disorder Mosaic Down syndrome Intellectual disability Psychiatric care Social History Smoking and tobacco/nicotine status: never used tobacco/nicotine Vitals/I&O/Wt Last Vital Signs Temp 97.8 F 08/25/24 07:30 Pulse 63 08/25/24 07:30 Resp 15 08/25/24 07:30 BP 129/84 08/25/24 07:30 Pulse Ox 98 08/25/24 07:30 O2 Del Method Room Air 08/25/24 07:30 08/24/24 08/25/24 08/25/24 22:59 06:59 14:59 Intake Total 120 / 120 120 / 240 240 / 240 Output Total 200 / 200 Balance 120 / 120 -80 / 40 240 / 240 Weight last 48 hrs Weight 386 lb 4.8 oz Weight 389 lb Weight 365 lb Physical Exam Narrative: The patient is alert and oriented to person place and situation. He atraumatic. Neck supple. Cranial nerves II through XII intact pupils 4 mm round reactive to light and accommodation. Extraocular movements intact. There were no nystagmus. Motor testing 5/5 in the upper extremities. Lower extremities revealed 3/5 right hip flexion and 4/5 left hip flexion and 4/5 hamstrings on the right. Hip extension, hip abduction, hip abduction 5/5. Distal lower extremity testing 5/5. DEEP TENDON REFLEXES: Were 2+ throughout. Toes were downgoing. Trace in the upper extremities and reflexes difficult to elicit in the lower extremities from his patellas and Achilles areas. There was no clonus. Sensory examination was intact to touch. Gait was not tested secondary to patient's complaint of leg weakness right side worse than the left. Throat clear. Lungs clear. Heart regular rhythm and rate. Extremities were negative for cyanosis. Data 08/25/24 05:15 08/25/24 05:15 A&P Assessment and plan (1) Mid back pain: Impression: 1. Mid and low back pain associated with bilateral leg weakness in an L2-L4 distribution right side worse than the left with difficulty ambulating 2. Intractable generalized epilepsy with vagal nerve stimulator 3. Intellectual disability and history of mosaic Down syndrome Plan: 1. Recommend obtaining contrast CT scan of the cervical, thoracic and lumbar spines to assess for central spinal stenosis 2. Continue fall precautions 3. Agree with Occupational Therapy for gait training and strengthening 4. Recommend obtaining vascular studies to rule out vascular etiology/circulation problems (2) Low back pain: (3) Leg weakness, bilateral: PDMP PDMP Reviewed: Not Reviewed Consult Attestations Medical Necessity Statement: The patient was evaluated by neurology for complaints of mid and low back pain and leg weakness in an L2-L4 distribution right side worse than the left Coding Level of Care Code 38026 Diagnoses Mid back pain M54.9 Low back pain M54.50 Leg weakness, bilateral R29.896
--- NOTE | 2024-08-25 14:35 | CTR_ITS ---
PROCEDURE INFORMATION: Exam: CT Lumbar Spine Without and With Contrast Exam date and time: 08/26/2024 1:42 AM Age: 39 years old Clinical indication: Weakness; Additional info: B/l le weakness, b/l le weakness, gait disturbance, CT to assess for nerve TECHNIQUE: Imaging protocol: Computed tomography of the lumbar spine without and with contrast. Radiation optimization: All CT scans at this facility use at least one of these dose optimization techniques: automated exposure control; mA and/or kV adjustment per patient size (includes targeted exams where dose is matched to clinical indication); or iterative reconstruction. Contrast material: OMNI 350; Contrast volume: 100 ml; Contrast route: INTRAVENOUS (IV); COMPARISON: CT abdomen pelvis wo con [id number] 08/17/2024 8:17 AM RADIATION DOSE METRICS: Total DLP (mGy-cm): 1520.9 FINDINGS: Bones/joints: There is a transitional vertebra at the lumbosacral junction that is designated as S1. Evaluation of the spinal canal is limited due to image artifact. However, there is a possible large posterior disc herniation at L5-S1 in at least moderate spinal canal stenosis. Stable old, mild compression deformity of L1. No subluxation. Normal bone mineralization. Intervertebral disc space height is preserved. Thickening of the posterior epidural fat at L1, L2, and L3 levels suggesting epidural lipomatosis. This is resulting in [id number]-[id number]-frtntcnv spinal canal stenosis at these levels (series 11, image 47). The right and left sacroiliac joints are unremarkable. No acute fracture. Vasculature: No evidence for aortic aneurysm or aortic dissection. Soft tissues: No paravertebral soft tissue abnormality or soft tissue emphysema. No radiopaque foreign body. CT/CT lumbar spine wo/w con [id number] IMPRESSION: 1. There is a transitional vertebra at the lumbosacral junction that is designated as S1. 2. Evaluation of the spinal canal is limited due to image artifact. However, there is a possible large posterior disc herniation at L5-S1 in at least moderate spinal canal stenosis. This can be further evaluated with MRI of the lumbar spine, if the patient has no contraindication to MRI. 3. Stable old, mild compression deformity of L1. 4. Thickening of the posterior epidural fat at L1, L2, and L3 levels suggesting epidural lipomatosis. This is resulting in [id number]-krqihcfl spinal canal stenosis at these levels (series 11, image 47). 5. No acute fracture of the lumbar spine. 6. Incidental/nonacute findings are listed in the report.
--- NOTE | 2024-08-25 14:35 | CTR_ITS ---
PROCEDURE INFORMATION: Exam: CT Thoracic Spine Without and With Contrast Exam date and time: 08/26/2024 1:42 AM Age: 39 years old Clinical indication: Weakness; Additional info: B/l le weakness, dysequilibrium, b/l le weakness, gait disturbance, CT to assess for nerve TECHNIQUE: Imaging protocol: Computed tomography of the thoracic spine without and with contrast. Radiation optimization: All CT scans at this facility use at least one of these dose optimization techniques: automated exposure control; mA and/or kV adjustment per patient size (includes targeted exams where dose is matched to clinical indication); or iterative reconstruction. Contrast material: OMNI 350; Contrast volume: 100 ml; Contrast route: INTRAVENOUS (IV); COMPARISON: CT abdomen pelvis wo con [id number] 08/17/2024 8:17 AM RADIATION DOSE METRICS: Total DLP (mGy-cm): 1801.3 FINDINGS: Bones/joints: Poststernotomy changes in the chest. Vertebral body height is maintained. No subluxation. Normal bone mineralization. Mild degenerative changes in the visualized spine. Schmorl's nodes at multiple levels in the thoracic spine. Thickening of the posterior epidural fat measuring up to 7 mm in the thoracic spine from T4 through T9, consistent with epidural lipomatosis. This is causing mild spinal canal stenosis. No acute fracture. No subluxation. Normal bone mineralization. Soft tissues: No paravertebral soft tissue abnormality or soft tissue emphysema. No radiopaque foreign body. Vasculature: No evidence for aortic aneurysm or aortic dissection. Lungs: Linear atelectasis or scarring in the right lower lobe. Calcified granuloma in the left lower lobe. Heart: Visualized portions of the heart are moderately enlarged. CT/CT thoracic spine wo/w [id number] IMPRESSION: 1. No acute fracture in the thoracic spine. 2. Mild degenerative changes in the visualized spine. 3. Thickening of the posterior epidural fat measuring up to 7 mm in the thoracic spine from T4 through T9, consistent with epidural lipomatosis. This is causing mild spinal canal stenosis. Further evaluation with MRI of the thoracic spine on a may be obtained for further evaluation, if the patient has no contraindications to MRI.
--- NOTE | 2024-08-25 14:37 | USR_ITS ---
PROCEDURE INFORMATION: Exam: US Duplex Bilateral Lower Extremity Arteries Exam date and time: 08/25/2024 4:12 PM Age: 39 years old Clinical indication: Other: Weakness; Additional info: Le weakness, assess for claudication TECHNIQUE: Imaging protocol: Real-time ultrasound scan of the arteries of the bilateral lower extremities with 2-D tate scale, color Doppler flow and spectral waveform analysis. Images documented and saved. COMPARISON: CT abdomen pelvis con [id number] 08/17/2024 8:17 AM FINDINGS: Right common femoral artery: No occlusion or significant stenosis. Normal waveform. Right superficial femoral artery: No occlusion or significant stenosis. Normal waveform. Right popliteal artery: No occlusion or significant stenosis. Normal waveform. Right calf/foot arteries: No occlusion or significant stenosis in the visualized arteries. Normal waveforms. Dorsalis pedis artery is patent. Left common femoral artery: No occlusion or significant stenosis. Normal waveform. Left superficial femoral artery: No occlusion or significant stenosis. Normal waveform. Left popliteal artery: No occlusion or significant stenosis. Normal waveform. Left calf/foot arteries: No occlusion or significant stenosis in the visualized arteries. Normal waveforms. Dorsalis pedis artery is patent. US/[place] [id number] IMPRESSION: No stenosis or occlusion.
--- NOTE | 2024-08-25 17:13 | P.PN_ITS ---
Subjective 2 Subjective: patient unable to get MRI due to spinal stimulator in place. working with PT Vitals/I&O/Wt Last Vital Signs Temp 97.7 F 08/25/24 15:28 Pulse 70 08/25/24 15:28 Resp 16 08/25/24 15:28 BP 128/81 08/25/24 15:28 Pulse Ox 98 08/25/24 15:28 O2 Del Method Room Air 08/25/24 15:28 08/25/24 08/25/24 08/25/24 06:59 14:59 22:59 Intake Total 120 / 240 360 / 360 Output Total 200 / 200 Balance -80 / 40 360 / 360 Weight last 48 hrs Weight 175.223 kg Weight 176.447 kg Weight 165.561 kg Physical Exam 2 Narrative: General: No acute distress, AO x3 HEENT: PERRLA, pupils bilaterally equal and reactive, pallors not present Chest: Normal vesicular breath sounds, no added sounds, equal good air entry bilaterally CVS: S1-S2 regular, no murmurs, no tachycardia, no gallops, no rubs Abdomen: Soft, nontender, no organomegaly, bowel sounds present Neuro: unsteady gait, unable to walk beyond a few steps, reports dizziness Data 08/25/24 05:15 08/25/24 05:15 A&P Assessment and plan (1) Mosaic Down syndrome: (2) Generalized epilepsy: (3) Seizures: (4) Nystagmus: (5) Ambulatory dysfunction: (6) Disequilibrium: Plan 39M with PMH as noted above presented with symptoms of weakness, dizziness and nsytagmus. CT head and CTA head neck without acute abnormalities. Start Asa 81mg po daily MRI brain to evaluate for posterior circulation stroke trial of meclizine 25mg po TID for dizziness Patient not a TNKase candidate due to unknown time of onset of symptoms neurology consult ordered from ER. Admit in observation PT/OT/speech eval Echocardiogram telemetry monitoring lipid panel, hba1c 08/25/24 : unable to get MRI due to spinal stimulator. Patient worked with PT. noted to be mod to max assit which is new for the patient. Speech eval with no abnormalities. Will likely benefit from continued rehab. Apprecuate neurology consult. LE weakness thought more likely to be related to LE weakness, ? spinal cause. Check CT lumbar and thoracic spine w/contrast and LE duplex to assess for vascularity. Normal valproate level, pending topiarmaate level. PDMP PDMP Reviewed: Not Reviewed Attestations 2 Medical Necessity Statement*: change to inpatient admission, will need further evaluation for LE weakness, CT imaging. Coding Level of Care Code Acute Code for Chg Fwd Diagnoses Mosaic Down syndrome Q90.1 Generalized epilepsy G40.309 Seizures R56.9 Nystagmus H55.00 Ambulatory dysfunction R26.2 Disequilibrium R42
[2024-08-25] MEDS: divalproex ER 500 mg Tablet (24H) 1000 MG PO (21:12)
[2024-08-25] MEDS: atorvastatin 40 mg Tablet PO (21:13)
[2024-08-25] MEDS: quetiapine 25 mg Tablet 50 MG PO (21:13)
[2024-08-26] VITALS (9 sets, daily range): BP systolic 121–153; BP diastolic 85–94; PULSE 60–68; RESP 15–18; TEMP 36.2–36.7; O2SAT 96–99
[2024-08-26] MEDS: iohexol 350 mg/mL 500 mL Btl (per mL) IV (01:37)
[2024-08-26 05:53] LABS: Hematocrit 37.8 % (37-53); Mean Corpuscular HGB Conc 30.2 g/dL (30-55); Mean Corpuscular Hemoglobin 29.8 pg (27-33); Mean Corpuscular Volume 98.7 fl (82-101); Mean Platelet Volume 9.8 fL (7.4-10.4); Platelet Count 245 10^3/cmm (157-399); Red Blood Count 3.83 10^6/uL (3.85-5.65); Red Cell Distribution Width 13.5 % (12.1-15.1); White Blood Count 4.81 10^3/uL (3.29-11.43)
[2024-08-26 06:21] LABS: Alanine Aminotransferase 18 U/L (0-41); Albumin Level 3.7 g/dL (3.5-5.2); Alkaline Phosphatase 74 U/L (40-130); Aspartate Amino Transferase 18 U/L (0-40); Blood Urea Nitrogen 11 mg/dL (6-20); Calcium 9.3 mg/dL (8.5-10.5); Carbon Dioxide 24 mmol/L (22-29); Chloride 105 mmol/L (98-107); Creatinine Clr Calc Pharmacy 207.0798; Globulin 3.6 g/dL (1.3-4.6); Glomerular Filtration Rate 108.2 mL/min (90-130); Glucose 86 mg/dL (65-115); Osmolality Calculated 291 mOsm/kg (285-295); Sodium 141 mmol/L (136-145); Total Bilirubin 0.2 mg/dL (0.15-1.2); Total Protein 7.3 g/dL (6.6-8.7)
[2024-08-26 06:22] LABS: Slide Review Slide Review Perform
[2024-08-26 06:25] LABS: Absolute Segmented Neutrophil 2.5 10/cmm (1.6-7.1); Band Neutrophils Absolute 0.2 10^3/cmm (0.0-1.2); Lymphocytes 37 %; Monocytes Absolute 0.3 10^3/cmm (0.1-0.6); Segmented Neutrophils 51 %; Total Cells Counted 100 (0-100)
[2024-08-26 06:26] LABS: Absolute Neutrophil 2.6 10^3/cmm (1.4-6.5); Eosinophils 0 %; Lymphocytes Absolute 1.8 10^3/cmm (1.2-3.4); Platelet Estimate Normal (Normal)
[2024-08-26 06:40] LABS: Anion Gap 16.6 (5-19); Potassium 4.6 mmol/L (3.5-5.1)
[2024-08-26] MEDS: aspirin 81 mg EC Tablet PO (08:30)
[2024-08-26] MEDS: carBAMazepine 200 mg Tablet 400 MG PO ×2 (08:30→18:08)
--- NOTE | 2024-08-26 10:00 | MR_ITS ---
WS: [id number] MRI LUMBAR SPINE NONCONTRAST AND SACRUM TECHNIQUE: Sagittal T1, T2 and STIR imaging lumbar spine. Axial T1 and T2 imaging lumbar spine and sacrum. Coronal T1 STIR imaging of the sacrum. CLINICAL INFORMATION: L5-S1 stenosis COMPARISON: CT 08/26/2024 FINDINGS: Lumbar spine performed mid lumbar spine through the pelvis. This is due to vagal nerve stimulator tailor apprentice recommendations and limitations. Patient is not a candidate for thoracic spine MRI due to tailor apprentice recommendations. Transitional lumbosacral segment considered S1 for the purposes of this dictation. L2-L3: Normal. L3-L4: Normal. L4-L5: Mild narrowing of the thecal sac due to prominent epidural fat with minimal disc bulging. Mild LEFT and no significant RIGHT foraminal narrowing. Tiny LEFT foraminal protrusion encroaches on the exiting LEFT L4 nerve root. Moderate facet arthropathy. L5-S1: Mild annular bulging with a tiny shallow central protrusion. Slight effacement of the ventral thecal sac with slight contact of the traversing S1 nerve roots. Mild facet arthropathy. Foramen are patent. Mild narrowing of the thecal sac mainly due to prominent epidural fat. S1-S2: S1 is partially lumbarized. No significant disc bulging. Spinal canal and foramen are patent. Mild facet arthropathy. Normal bone marrow signal in the bony pelvis and sacrum. No sacral fractures or insufficiency fractures. Normal sacral foramina. MR/MR lumbar spine wo con* [id number] IMPRESSION: 1. Mild narrowing of the thecal sac L4-L5 and L5-S1 due to mild annular bulgin g and prominent epidural fat. 2. Tiny shallow central protrusion L5-S1 with slight contact of the S1 nerve r oots. No large disc extrusion or protrusion. 3. Mild annular bulging L4-5 with mild narrowing of the thecal sac. 4. Small LEFT L4-5 foraminal protrusion with contact of the exiting LEFT L4 ne rve root. 5. Normal bone marrow signal in the sacrum.
--- NOTE | 2024-08-26 10:17 | PM.CONSULT ---
Providers/Reason For Consult Consulting Physician/Specialty*: Hospitalist Reason for Consult*: Bilateral leg weakness Attending Physician: Starr Hintno MD Primary Care Provider: ROBERT Fowler History of Present Illness History of Present Illness Herrera Garza is a 39 year old male The patient was reported to have a routine surface EEG recording performed on 08/24/2024. The patient stated that he went home but he noticed he was having trouble walking because of bilateral leg weakness, right side worse than the left and therefore the patient presented to the [facility] emergency department. Review of Systems General: Reports: 10 or more systems reviewed and unremarkable except in HPI and below Const: Denies: fever(s), chills or body aches Eyes: Denies: change in vision, blurry vision or photophobia ENMT: Reports: hoarseness; Denies: throat pain, enlarged tonsils, odynophagia or nasal congestion Card: Denies: chest pain, palpitations, irregular heart rhythm, edema, swelling of feet/ankles, lightheadedness, pre-syncope, dyspnea on exertion or orthopnea Resp: Denies: dyspnea, productive cough, non-productive cough, wheezing, stridor, pain on inspiration, change in phlegm color, hemoptysis or chest congestion GI: Denies: abdominal pain, nausea, vomiting, hematemesis, coffee ground emesis, dysphagia, heartburn, diarrhea, constipation, GI cramping, change in stool character, hematochezia or melena : Denies: flank pain, dysuria, urinary frequency, urinary urgency, urinary hesitancy or hematuria Musc: Denies: neck pain, back pain, extremity pain, joint swelling, joint warmth or deformity Neuro: Denies: headache(s), numbness in extremities, weakness in extremities, sensory changes, difficulty walking, frequent falls, dizziness, vertigo, behavioral changes, Slurred speech present or seizure-like activity Psych: Denies: anxiety, depression, suicidal ideation or homicidal ideation Endo: Denies: polyuria, polydipsia, tired all the time, cold intolerance or hot flashes Sorin/Lymph: Denies: easy bruising or easy bleeding Medications/Allergies Home Medications ?Medication ?Instructions ?Recorded ?Confirmed ?Last Taken ?Type atorvastatin 20 mg tablet 20 mg PO .Night 12/23/23 08/25/24 08/23/24 History carbamazepine 200 mg tablet See Rx Instructions .Route .COMPLEX 12/23/23 08/25/24 08/24/24 History clonazepam 0.5 mg tablet 0.5 mg PO BID 12/23/23 08/25/24 08/24/24 History diphenhydramine HCl 50 mg capsule 50 mg PO QID PRN Allergic Reaction 12/23/23 08/25/24 Unknown History (Banophen) divalproex 500 mg tablet,extended See Rx Instructions .Route .COMPLEX 12/23/23 08/25/24 08/24/24 History release 24 hr ft fiberlax psyllium husk 160 mg PO BID 12/23/23 08/25/24 08/24/24 History hydrocortisone 1 % topical cream 1 applic topical BID PRN Itching 12/23/23 08/25/24 Unknown History (Anti-Itch (hydrocortisone)) hydroxyzine HCl 25 mg tablet 25 mg PO TID 12/23/23 08/25/24 08/24/24 History hydroxyzine pamoate 50 mg capsule 50 mg PO QID PRN Anxiety 12/23/23 08/25/24 Unknown History menthol 3.2 mg lozenges ([place]ne 3.2 mg mucous membrane Q2H PRN 12/23/23 08/25/24 Unknown History Cough Drops) Cough polyethylene glycol 3350 17 4 g PO TID PRN Constipation 12/23/23 08/25/24 Unknown History gram/dose oral powder potassium chloride 20 mEq 20 meq PO DAILY 12/23/23 08/25/24 08/24/24 History tablet,extended release sennosides 8.6 mg-docusate sodium 1 tab-cap PO BID PRN Constipation 12/23/23 08/25/24 Unknown History 50 mg tablet (Senna-Time S) dextromethorphan HBr 5 mg/5 mL 10 mg PO BID PRN Cough 01/28/24 08/25/24 Unknown History oral syrup (Vicks DayQuil Cough) paroxetine HCl 40 mg tablet 40 mg PO DAILY #30 tabs 01/28/24 08/25/24 08/24/24 Rx quetiapine 50 mg tablet 50 mg PO .HS #30 tabs 01/28/24 08/25/24 08/23/24 Rx risperidone 2 mg tablet 2 mg PO BID #60 tabs 01/28/24 08/25/24 08/24/24 Rx loperamide 2 mg capsule (Imodium 2 mg PO Q6H PRN loose stool #20 03/08/24 08/25/24 Unknown Rx A-D) caps topiramate 100 mg tablet See Rx Instructions .Route .COMPLEX 06/21/24 08/25/24 08/24/24 History amoxicillin 875 mg-potassium 1 tab PO BID 7 days #14 tabs 08/19/24 08/25/24 08/24/24 Rx clavulanate 125 mg tablet dicyclomine 10 mg capsule 10 mg PO TID diarrhea, cramping 08/19/24 08/25/24 08/24/24 Rx #12 caps acetaminophen 325 mg tablet 650 mg PO Q6H PRN pain/fever 08/25/24 08/25/24 Unknown History saqqjoberryqvpu-tyzdenvkbvfbkrp-RW 5 ml PO Q6H PRN Cold Symptoms 08/25/24 08/25/24 Unknown History 2 mg-30 mg-10 mg/5 mL oral syrup docusate sodium 100 mg capsule 100 mg PO QPM 08/25/24 08/25/24 08/23/24 History ibuprofen 200 mg tablet 400 mg PO Q6H PRN pain/fever 08/25/24 08/25/24 Unknown History levothyroxine 75 mcg tablet 75 mcg PO QAM 08/25/24 08/25/24 08/24/24 History pantoprazole 40 mg tablet,delayed 40 mg PO DAILY 08/25/24 08/25/24 08/24/24 History release polyethylene glycol 3350 17 gram 17 g PO DAILY Constipation 08/25/24 08/25/24 Unknown History oral powder packet (Miralax) Allergies Allergy/AdvReac Type Severity Reaction Status Date / Time No Known Allergies Allergy Verified 08/24/24 09:50 Current Medications Generic Name Dose Route Start Last Admin Trade Name Freq PRN Reason Stop Dose Admin Aspirin 81 mg 08/25/24 09:00 08/26/24 08:30 Aspirin 81 Mg Ec Tablet PO 81 mg DAILY ORTIZ Administration Atorvastatin Calcium 40 mg 08/24/24 21:00 08/25/24 21:13 Atorvastatin 40 Mg Tablet PO 40 mg BEDTIME ORTIZ Administration Carbamazepine 400 mg 08/25/24 09:00 08/26/24 08:30 Carbamazepine 200 Mg Tablet PO 400 mg BID ORTIZ Administration Divalproex Sodium 1,000 mg 08/24/24 22:00 08/25/24 21:12 Divalproex Er 500 Mg Tablet (24h) PO 1,000 mg BEDTIME ORTIZ Administration Quetiapine Fumarate 50 mg 08/24/24 22:00 08/25/24 21:13 Quetiapine 25 Mg Tablet PO 50 mg BEDTIME ORTIZ Administration PFSH Acute PFSH: Medical History Generalized epilepsy Generalized anxiety disorder Mosaic Down syndrome Intellectual disability Psychiatric care Social History Smoking and tobacco/nicotine status: never used tobacco/nicotine Vitals/I&O/Wt Last Vital Signs Temp 97.8 F 08/26/24 07:00 Pulse 62 08/26/24 07:00 Resp 15 08/26/24 07:00 BP 121/85 08/26/24 07:00 Pulse Ox 98 08/26/24 07:00 O2 Del Method Room Air 08/26/24 07:00 08/25/24 08/26/24 08/26/24 22:59 06:59 14:59 Intake Total 360 / 720 240 / 960 120 / 120 Balance 360 / 720 240 / 960 120 / 120 Weight last 48 hrs Weight 387 lb 14.4 oz Weight 386 lb 4.8 oz Weight 389 lb Weight 365 lb Physical Exam Narrative: Alert and oriented x 3 Head is normocephalic atraumatic Respirations are intact No evidence of any rashes or infection Patient's plantarflexion dorsiflexion and EHL are 5-5 bilaterally. He does have weakness in his hips bilaterally. At this point says he has sensation but it feels like is decreased bilaterally. Data 08/26/24 05:22 08/26/24 05:22 A&P Assessment and plan (1) Leg weakness, bilateral: At this point would like to get an MRI. Patient cannot get a thoracic MRI because of the stimulator that is placed. But will be hopefully get a lumbar MRI if cannot get MRI would need a CT myelogram to further evaluate there is nerve compression. Based on the CT findings I do not see evidence that would suggest that this is coming from the spine. Will await MRI to determine a treatment plan. CT Lumbar and Thoracic 1. No acute fracture in the thoracic spine. 2. Mild degenerative changes in the visualized spine. 3. Thickening of the posterior epidural fat measuring up to 7 mm in the thoracic spine from T4 through T9, consistent with epidural lipomatosis. This is causing mild spinal canal stenosis . There is a transitional vertebra at the lumbosacral junction that is designated as S1. 2. Evaluation of the spinal canal is limited due to image artifact. However, there is a possible large posterior disc herniation at L5-S1 in at least moderate spinal canal stenosis. This can be further evaluated with MRI of the lumbar spine, if the patient has no contraindication to MRI. 3. Stable old, mild compression deformity of L1. 4. Thickening of the posterior epidural fat at L1, L2, and L3 levels suggesting epidural lipomatosis. This is resulting in yeib-sn-ggstglhc spinal canal stenosis at these levels (series 11, image 47). 5. No acute fracture of the lumbar spine. 6. Incidental/nonacute findings are listed in the report. PDMP PDMP Reviewed: Not Reviewed Coding Level of Care Code Acute Code for Chg Fwd Diagnoses Leg weakness, bilateral R29.898
--- NOTE | 2024-08-26 13:22 | PC.NURSE ---
pool coordinator rounds at 1205- patient resting in bed watching TV, patient tells me he got an MRI. Still following for possible stroke.
--- NOTE | 2024-08-26 16:40 | ECG_ITS ---
[facility] Test Date: 2024-08-26 Pat Name: Herrera Garza Department: Room: 277 Gender: Male [employer] Professional: : 1985 Requested By: Starr Hinton Order Number: [id number] Skylar MD: Ronald Aponte M.D. Measurements Intervals [place] Rate: 63 P: 39 TX: 185 QRS: -44 QRSD: 166 T: 5 QT: 441 QTc: 453 Interpretive Statements SINUS RHYTHM LEFT AXIS DEVIATION [QRS AXIS < -30] RIGHT BUNDLE BRANCH BLOCK [120+ ms QRS DURATION, UPRIGHT V1, 40+ ms S IN I/aVL/V4/V5/V6] Compared to ECG 08/24/2024 17:48:53 Left-axis deviation now present Left anterior fascicular block no longer present Myocardial infarct finding no longer present Electronically Signed On 08-27-2024 14:51:50 CDT by Ronald Aponte M.D. [id number] [id number]
--- NOTE | 2024-08-26 16:56 | P.PN_ITS ---
Subjective 2 Subjective: CT lumboscaral spine showed Thickening of the posterior epidural fat at L1, L2, and L3 levels suggesting epidural lipomatosis. This is resulting in btyy-dp-czlmzkgn spinal canal stenosis at these levels. Thickening of the posterior epidural fat measuring up to 7 mm in the thoracic spine from T4 through T9, consistent with epidural lipomatosis. Medications: Reviewed: Yes Vitals/I&O/Wt Last Vital Signs Temp 98.0 F 08/26/24 15:00 Pulse 67 08/26/24 15:00 Resp 15 08/26/24 15:00 BP 133/86 08/26/24 15:00 Pulse Ox 98 08/26/24 15:00 O2 Del Method Room Air 08/26/24 15:00 08/26/24 08/26/24 08/26/24 06:59 14:59 22:59 Intake Total 240 / 960 360 / 360 Balance 240 / 960 360 / 360 Weight last 48 hrs Weight 175.948 kg Weight 175.223 kg Weight 176.447 kg Physical Exam 2 Narrative: General: No acute distress, AO x3 HEENT: PERRLA, pupils bilaterally equal and reactive, pallors not present Chest: Normal vesicular breath sounds, no added sounds, equal good air entry bilaterally CVS: S1-S2 regular, no murmurs, no tachycardia, no gallops, no rubs Abdomen: Soft, nontender, no organomegaly, bowel sounds present Data 08/26/24 05:22 08/26/24 05:22 A&P Assessment and plan (1) Mosaic Down syndrome: (2) Generalized epilepsy: (3) Seizures: (4) Nystagmus: (5) Ambulatory dysfunction: (6) Disequilibrium: Plan 39M with PMH as noted above presented with symptoms of weakness, dizziness and nsytagmus. CT head and CTA head neck without acute abnormalities. Start Asa 81mg po daily MRI brain to evaluate for posterior circulation stroke trial of meclizine 25mg po TID for dizziness Patient not a TNKase candidate due to unknown time of onset of symptoms neurology consult ordered from ER. Admit in observation PT/OT/speech eval Echocardiogram telemetry monitoring lipid panel, hba1c 08/25/24 : unable to get MRI due to spinal stimulator. Patient worked with PT. noted to be mod to max assit which is new for the patient. Speech eval with no abnormalities. Will likely benefit from continued rehab. Apprecuate neurology consult. LE weakness thought more likely to be related to LE weakness, ? spinal cause. Check CT lumbar and thoracic spine w/contrast and LE duplex to assess for vascularity. Normal valproate level, pending topiarmaate level. August 26, 2024 CT of the lumbar spine showed possible large posterior disc herniation at L5-S1 in at least moderate spinal canal stenosis. Thickening of the posterior epidural fat at L1, L2, and L3 levels suggesting epidural lipomatosis.MRI of the lumbar spine was able to be performed today after discussion with radiology. This showed mild narrowing of the thecal sac at L4-L5 and L5-S1 due to mild annular bulging and prominent epidural fat. Spine surgery has been consulted for further assessment. PDMP PDMP Reviewed: Not Reviewed Attestations 2 Medical Necessity Statement*: MRI today, spine surgery evaluation Coding Level of Care Code Acute Code for Chg Fwd Diagnoses Mosaic Down syndrome Q90.1 Generalized epilepsy G40.309 Seizures R56.9 Nystagmus H55.00 Ambulatory dysfunction R26.2 Disequilibrium R42
[2024-08-26 17:13] LABS: Troponin(5th) Baseline < 6 ng/L (0-15)
--- NOTE | 2024-08-26 18:21 | ECG_ITS ---
[facility] Test Date: 2024-08-26 Pat Name: Herrera Garza Department: Room: 277 Gender: Male [employer] Executive: : 1985 Requested By: Starr Hinton Order Number: [id number] Skylar MD: Ronald Aponte M.D. Measurements Intervals [place] Rate: 73 P: 31 MA: 185 QRS: -58 QRSD: 166 T: -12 QT: 419 QTc: 464 Interpretive Statements SINUS RHYTHM RIGHT BUNDLE BRANCH BLOCK [120+ ms QRS DURATION, UPRIGHT V1, 40+ ms S IN I/aVL/V4/V5/V6] INFERIOR MYOCARDIAL INFARCTION , OF INDETERMINATE AGE [40+ ms Q WAVE AND/OR ST/T ABNORMALITY IN II/aVF] Compared to ECG 08/26/2024 16:40:33 Myocardial infarct finding now present Left-axis deviation no longer present Electronically Signed On 08-27-2024 15:04:00 CDT by Ronald Aponte M.D. [id number] [id number]
[2024-08-26 18:51] LABS: Troponin 5 2HR < 6.0 ng/L (0-15); Troponin 5 2HR Delta 0 ABS# (0-10)
[2024-08-26] MEDS: divalproex ER 500 mg Tablet (24H) 1000 MG PO (20:42)
[2024-08-26] MEDS: atorvastatin 40 mg Tablet PO (20:42)
[2024-08-26] MEDS: quetiapine 25 mg Tablet 50 MG PO (20:43)
[2024-08-26 22:41] LABS: Troponin 5 6HR < 6.0 ng/L (0-15); Troponin 5 6HR Delta 0 ng/L (0-12)
--- NOTE | 2024-08-26 22:44 | ECG_ITS ---
[facility] Date: 2024-08-26 Pat Name: Herrera Garza Department: Room: 277 Gender: Male Classifier Tender: : 1985 Requested By: Starr Hinton Order Number: [id number] Skylar MD: Ronald Aponte M.D. Measurements Intervals [place] Rate: 61 P: 36 [place]: 193 QRS: -30 QRSD: 160 T: -3 QT: 430 QTc: 436 Interpretive Statements SINUS RHYTHM BORDERLINE LEFT AXIS DEVIATION [QRS AXIS < -20] RIGHT BUNDLE BRANCH BLOCK [120+ ms QRS DURATION, UPRIGHT V1, 40+ ms S IN I/aVL/V4/V5/V6] Compared to ECG 08/26/2024 18:21:09 Myocardial infarct finding no longer present Electronically Signed On 08-27-2024 15:02:59 CDT by Ronadl Aponte M.D. [id number] [id number]
[2024-08-27] MEDS: acetaminophen 325 mg Tablet 650 MG PO (00:02)
[2024-08-27] MEDS: CLONazepam 0.5 mg Tablet PO (00:02)
[2024-08-27 00:29] VITALS: BP 133/86; PULSE 80; RESP 16; TEMP 37; O2SAT 96
[2024-08-27 04:29] VITALS: BP 123/80; PULSE 58; RESP 16; TEMP 36.6; O2SAT 96
[2024-08-27 05:59] VITALS: PULSE 60
[2024-08-27 07:35] VITALS: BP 140/84; PULSE 67; RESP 18; TEMP 36.8; O2SAT 97
[2024-08-27] MEDS: aspirin 81 mg EC Tablet PO (08:20)
[2024-08-27] MEDS: carBAMazepine 200 mg Tablet 400 MG PO (08:21)
--- NOTE | 2024-08-27 10:37 | PC.SLP ---
Pt being d/c. Patient resting in bed and going to sleep until he is d/c, per patient response.
[2024-08-27 11:19] VITALS: BP 142/86; PULSE 68; RESP 18; TEMP 36.7; O2SAT 97
--- NOTE | 2024-08-27 13:23 | P.DS_ITS ---
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 Youssef. The patient was reported to have a routine surface EEG recording performed on 08/24/2024. The patient stated that he went home but he noticed he was having trouble walking because of bilateral leg weakness, right side worse than the left and therefore the patient presented to the [facility] emergency department. Noncontrast head CT and CT angiogram of the head and neck performed on 08/24/2024 were unrevealing. Patient was admitted for evaluation. Neurology consult was obtained. Findings were not thought to be related to stroke. CT of the thoracolumbar spine initially raised concern for spinal canal stenosis/disc herniation, however f/up MRI of the lumbar spine did not show any obvious signs of cord compression. He had mild stenosis. He received PT/OT eval, his symptoms are improving at the time of dicsharge. Patient reported dizziness and balance issues initially upon admission which improved during course and were resolved at discharge. He reported double vision also, however stated that this was resolved after he put on his prescription glasses. Verner Hallpike testing did not reveal any signs of BPPV. Physical Exam Narrative: General: No acute distress, AO x3 HEENT: PERRLA, pupils bilaterally equal and reactive, pallors not present Chest: Normal vesicular breath sounds, no added sounds, equal good air entry bilaterally CVS: S1-S2 regular, no murmurs, no tachycardia, no gallops, no rubs Abdomen: Soft, nontender, no organomegaly, bowel sounds present Neuro: No focal deficits, no facial deformity, AO x3, power 5/5 in all limbs Discharge Data Studies Completed and Pending Completed Studies During Hospitalization Category Date Time Status CT angio headneck* 74734/26044 Stat Cat Scan 08/24/24 17:[address] head thrombolytic [id number] Stat Cat Scan 08/24/24 17:[address] lumbar spine wo/w con [id number] Routine Cat Scan 08/25/24 14:[address] thoracic spine wo/w [id number] Routine Cat Scan 08/25/24 14:35 Completed MR lumbar spine wo con* [id number] Routine MRI 08/26/24 10:00 [place] [id number] Routine Ultrasound 08/25/24 14:37 Completed CV. echo complete* [id number] Routine Ultrasound 08/24/24 20:54 Completed Pending at discharge Category Date Time Status Topiramate Level Timed Lab 08/24/24 17:20 Received Radiology Impressions Head CT 08/24/24 17:15 IMPRESSION: No acute intracranial abnormality. ASSESSMENT: ASPECTS (Lisa Stroke Program Early CT Score) is 10. ADDENDUM: 08/24/241802 THIS REPORT CONTAINS FINDINGS THAT MAY BE CRITICAL TO PATIENT CARE. The findings were verbally communicated via telephone conference with CARLOS ALBERTO SWEENEY at 6:02 PM CDT on 08/24/2024. The findings were acknowledged and understood. Head/Neck CTA 08/24/24 17:38 IMPRESSION: No large vessel stenosis or occlusion. IMPRESSION: No hemodynamically significant stenosis. REFERENCES: NASCET CRITERIA. The degree of stenosis in the cervical segment of the internal carotid artery is based on NASCET criteria. Normal is no stenosis. Mild is less than 50% stenosis. Moderate is 50-69% stenosis. Severe is 70% to 99% stenosis. Total occlusion is no detectable patent lumen. ADDENDUM: 08/24/241812 THIS REPORT CONTAINS FINDINGS THAT MAY BE CRITICAL TO PATIENT CARE. The findings were verbally communicated via telephone conference with CARLOS ALBERTO SWEENEY at 6:12 PM CDT on 08/24/2024. The findings were acknowledged and understood. Lumbar Spine CT 08/25/24 14:35 IMPRESSION: 1. There is a transitional vertebra at the lumbosacral junction that is designated as S1. 2. Evaluation of the spinal canal is limited due to image artifact. However, there is a possible large posterior disc herniation at L5-S1 in at least moderate spinal canal stenosis. This can be further evaluated with MRI of the lumbar spine, if the patient has no contraindication to MRI. 3. Stable old, mild compression deformity of L1. 4. Thickening of the posterior epidural fat at L1, L2, and L3 levels suggesting epidural lipomatosis. This is resulting in [id number] spinal canal stenosis at these levels (series 11, image 47). 5. No acute fracture of the lumbar spine. 6. Incidental/nonacute findings are listed in the report. Thoracic Spine CT 08/25/24 14:35 IMPRESSION: 1. No acute fracture in the thoracic spine. 2. Mild degenerative changes in the visualized spine. 3. Thickening of the posterior epidural fat measuring up to 7 mm in the thoracic spine from T4 through T9, consistent with epidural lipomatosis. This is causing mild spinal canal stenosis. Further evaluation with MRI of the thoracic spine on a may be obtained for further evaluation, if the patient has no contraindications to MRI. Duplex Scan Lower Extremity Artery 08/25/24 14:37 IMPRESSION: No stenosis or occlusion. Lumbar Spine MRI 08/26/24 10:00 IMPRESSION: 1. Mild narrowing of the thecal sac L4-L5 and L5-S1 due to mild annular bulging and prominent epidural fat. 2. Tiny shallow central protrusion L5-S1 with slight contact of the S1 nerve roots. No large disc extrusion or protrusion. 3. Mild annular bulging L4-5 with mild narrowing of the thecal sac. 4. Small LEFT L4-5 foraminal protrusion with contact of the exiting LEFT L4 nerve root. 5. Normal bone marrow signal in the sacrum. Laboratory Results WBC 4.81 10^3/uL (3.29-11.43) 08/26/24 05:22 RBC 3.83 10^6/uL (3.85-5.65) L 08/26/24 05:22 Hgb 11.40 g/dL (11.27-16.99) 08/26/24 05:22 Hct 37.8 % (37-53) 08/26/24 05:22 MCV 98.7 fl (82-101) 08/26/24 05:22 MCH 29.8 pg (27-33) 08/26/24 05:22 MCHC 30.2 g/dL (30-55) 08/26/24 05:22 RDW 13.5 % (12.1-15.1) 08/26/24 05:22 Plt Count 245 10^3/cmm (157-399) 08/26/24 05:22 MPV 9.8 fL (7.4-10.4) 08/26/24 05:22 Neut % (Auto) 48.2 % 08/25/24 05:15 Lymph % (Auto) Not Reportable 08/26/24 05:22 [place] % (Auto) Not Reportable 08/26/24 05:22 Eos % (Auto) 2.1 % 08/25/24 05:15 Baso % (Auto) 1.5 % 08/25/24 05:15 Neut # (Auto) 2.29 10^3/uL (1.8-7.7) 08/25/24 05:15 Lymph # (Auto) Not Reportable 08/26/24 05:22 [place] # (Auto) Not Reportable 08/26/24 05:22 Eos # (Auto) 0.1 10^3/uL (0.0-0.8) 08/25/24 05:15 Baso # (Auto) 0.1 10^3/uL (0.0-0.1) 08/25/24 05:15 Nucleated RBC % (auto) 0 % 08/25/24 05:15 Total Counted 100 (0-100) 08/26/24 05:22 Atypical Lymphs % 0.0 % (0-5) 08/26/24 05:22 Absolute Neutrophils 2.6 10^3/cmm (1.4-6.5) 08/26/24 05:22 Segmented Neutrophils 51 % 08/26/24 05:22 Band Neutrophils 4.0 % 08/26/24 05:22 Absolute Lymphocytes 1.8 10^3/cmm (1.2-3.4) 08/26/24 05:22 Lymphocytes (Manual) 37 % 08/26/24 05:22 Monocytes (Manual) 6.0 % 08/26/24 05:22 Absolute Monocytes 0.3 10^3/cmm (0.1-0.6) 08/26/24 05:22 Eosinophils (Manual) 0 % 08/26/24 05:22 Absolute Eosinophils 0.0 10^3/cmm (0.0-0.7) 08/26/24 05:22 Basophils (Manual) 0.0 % 08/26/24 05:22 Absolute Basophils 0.0 10^3/cmm (0.0-0.2) 08/26/24 05:22 Metamyelocytes 1.0 % 08/26/24 05:22 Myelocytes 1.0 % 08/26/24 05:22 Nucleated RBCs # 0.0 /100WBC 08/25/24 05:15 Platelet Estimate Normal (Normal) 08/26/24 05:22 Sodium 141 mmol/L (136-145) 08/26/24 05:22 Potassium 4.6 mmol/L (3.5-5.1) 08/26/24 05:22 Chloride 105 mmol/L (98-107) 08/26/24 05:22 Carbon Dioxide 24 mmol/L (22-29) 08/26/24 05:22 Anion Gap 16.6 (5-19) 08/26/24 05:22 BUN 11 mg/dL (6-20) 08/26/24 05:22 Creatinine 0.8 mg/dL (0.7-1.2) 08/26/24 05:22 GFR Calculation 108.2 mL/min (90-130) 08/26/24 05:22 Glucose 86 mg/dL (65-115) 08/26/24 05:22 POC Glucose 108 mg/dL (70-110) 08/24/24 20:40 Estimat Average Glucose 108 08/25/24 05:15 Hemoglobin A1c 5.4 % (4.0-6.0) 08/25/24 05:15 Calculated Osmolality 291 mOsm/kg (285-295) 08/26/24 05:22 Calcium 9.3 mg/dL (8.5-10.5) 08/26/24 05:22 Total Bilirubin 0.2 mg/dL (0.15-1.2) 08/26/24 05:22 AST 18 U/L (0-40) 08/26/24 05:22 ALT 18 U/L (0-41) 08/26/24 05:22 Alkaline Phosphatase 74 U/L (40-130) 08/26/24 05:22 Troponin T Baseline < 6 ng/L (0-15) 08/26/24 16:35 Troponin T 120 Minute < 6.0 ng/L (0-15) 08/26/24 18:25 Delta Troponin T 0 ABS# (0-10) 08/26/24 18:25 Troponin T Hi Sens 6Hr < 6.0 ng/L (0-15) 08/26/24 22:15 Troponin T Hi Sens 6Hr Delta 0 ng/L (0-12) 08/26/24 22:15 Total Protein 7.3 g/dL (6.6-8.7) 08/26/24 05:22 Albumin 3.7 g/dL (3.5-5.2) 08/26/24 05:22 Globulin 3.6 g/dL (1.3-4.6) 08/26/24 05:22 Triglycerides 161 mg/dL (0-150) H 08/25/24 05:15 Cholesterol 169 mg/dL (0-200) 08/25/24 05:15 LDL Cholesterol, Calc 95 mg/dL (50-129) 08/25/24 05:15 HDL Cholesterol 42 mg/dL (60-100) L 08/25/24 05:15 LDL/HDL Ratio 2.26 RATIO (0.00-3.22) 08/25/24 05:15 Cholesterol/HDL Ratio 4.02 mg/dL (1.0-5.00) 08/25/24 05:15 Urine Color Yellow (Yellow) 08/24/24 23:20 Urine Appearance Clear (CLEAR) 08/24/24 23:20 Urine pH 8.0 (5-7) A 08/24/24 23:20 Ur Specific [place] 1.074 (1.005-1.030) H 08/24/24 23:20 Urine Protein 1+ (Negative) A 08/24/24 23:20 Urine Glucose (UA) Negative (Normal) 08/24/24 23:20 Urine Ketones Negative (Negative) 08/24/24 23:20 Urine Blood Negative (Negative) 08/24/24 23:20 Urine Nitrate Negative (Negative) 08/24/24 23:20 Urine Bilirubin Negative (Negative) 08/24/24 23:20 Urine Urobilinogen 1.0 mg/dL (Negative) 08/24/24 23:20 Ur Leukocyte Esterase Negative (Negative) 08/24/24 23:20 Urine RBC 0-2 /hpf (0-2) 08/24/24 23:20 Urine WBC 21-50 /hpf (0-5) H 08/24/24 23:20 Ur Squamous Epith Cells 0-5 /hpf (0-5) 08/24/24 23:20 Amorphous Sediment Not Reportable 08/24/24 23:20 Urine Bacteria None seen /hpf (NONE) 08/24/24 23:20 Hyaline Casts 0-4 /lpf H 08/24/24 23:20 Valproic Acid 53.3 ug/mL (50-100) 08/24/24 17:20 Vitals Last Vital Signs Temp 98.0 F 08/27/24 11:19 Pulse 68 08/27/24 11:19 Resp 18 08/27/24 11:19 BP 142/86 08/27/24 11:19 Pulse Ox 97 08/27/24 11:19 O2 Del Method Room Air 08/27/24 11:19 Discharge Plan Discharge Patient Disposition: Home Condition: Stable Prescriptions: New aspirin 81 mg Tablet,Delayed Release (Dr/Ec) 81 mg PO DAILY 30 Days Qty: 30 0RF meclizine 25 mg Tablet 25 mg PO TID PRN (Reason: Dizziness) 15 Days Qty: 45 0RF Continued diphenhydramine HCl [Banophen] 50 mg capsule 50 mg PO QID PRN (Reason: Allergic Reaction) [place] Cough Drops 3.2 mg lozenge 3.2 mg mucous membrane Q2H PRN (Reason: Cough) hydrocortisone [Anti-Itch (HC)] 1 % cream 1 applic topical BID PRN (Reason: Itching) hydroxyzine pamoate 50 mg capsule 50 mg PO QID PRN (Reason: Anxiety) polyethylene glycol 3350 17 gram/dose powder 4 g PO TID PRN (Reason: Constipation) sennosides-docusate sodium [Senna-Time S] 8.6-50 mg tablet 1 tab-cap PO BID PRN (Reason: Constipation) hydroxyzine HCl 25 mg tablet 25 mg PO TID divalproex 500 mg tablet extended release 24 hr See Rx Instructions .ROUTE .COMPLEX Rx Instructions: Take 1 tablet by mouth in the morning and 4 tablets at bedtime. clonazepam 0.5 mg tablet 0.5 mg PO BID ft fiberlax psyllium husk 160 mg PO BID carbamazepine 200 mg tablet See Rx Instructions .ROUTE .COMPLEX Rx Instructions: Take 3 tablets by mouth every morning, 2 tablets at noon and 4 pm. atorvastatin 20 mg tablet 20 mg PO .Night Rx Instructions: Every night with dinner. potassium chloride 20 mEq tablet extended release 20 meq PO DAILY Rx Instructions: Take with food. Vicks DayQuil Cough 5 mg/5 mL syrup 10 mg PO BID PRN (Reason: Cough) quetiapine 50 mg tablet 50 mg PO .HS Qty: 30 11RF risperidone 2 mg tablet 2 mg PO BID Qty: 60 11RF paroxetine HCl 40 mg tablet 40 mg PO DAILY Qty: 30 11RF loperamide [Imodium A-D] 2 mg capsule 2 mg PO Q6H PRN (Reason: loose stool) Qty: 20 0RF dicyclomine 10 mg capsule 10 mg PO TID Qty: 12 0RF amoxicillin-pot clavulanate 875-125 mg tablet 1 tab PO BID 7 Days Qty: 14 0RF topiramate 100 mg tablet See Rx Instructions .ROUTE .COMPLEX Rx Instructions: TAKE 2 AND 1/2 TABLETS BY MOUTH IN THE MORNING & TAKE THREE TABLETS IN THE EVENING acetaminophen 325 mg Tablet 650 mg PO Q6H PRN (Reason: pain/fever) levothyroxine 75 mcg tablet 75 mcg PO QAM ibuprofen 200 mg Tablet 400 mg PO Q6H PRN (Reason: pain/fever) docusate sodium 100 mg Capsule 100 mg PO QPM [id number]-[id number]-GO 2-30-10 mg/5 mL syrup 5 ml PO Q6H PRN (Reason: Cold Symptoms) polyethylene glycol 3350 [Miralax] 17 gram powder in packet 17 g PO DAILY pantoprazole 40 mg tablet,delayed release (DR/EC) 40 mg PO DAILY Discharge Orders: Discharge Order (Routine); Ordered 08/27/24 Ordered By: Starr Hinton Other Ambulatory Orders: DME: Matheus (Order) Location: None Selected Ordered By: Starr Hinton Referrals: Daniela,Kcaey, [employer] RO[employer]EEPER [Primary Care Provider, Unknown] - 7-10 days Discharge Diet: Usual diet Discharge Activity: Resume usual activity Patient Instructions: Opioid Safety Discharge Attestations Time Spent in Discharge Care*: greater than 30 min Quality Metrics Clinical Quality Measures [ No reported AMI, CVA or VTE this stay] Coding Level of Care Code Acute Code for Chg Fwd Diagnoses Mosaic Down syndrome Q90.1 Generalized epilepsy G40.309 Seizures R56.9 Nystagmus H55.00 Ambulatory dysfunction R26.2 Disequilibrium R42
--- NOTE | 2024-08-27 13:43 | PC.SOCIAL ---
IMM UPDATED IMM dated and initialed, copy given to patient and copy placed in chart.
[2024-08-27 14:07] VITALS: BP 142/86; PULSE 68; O2SAT 97
== END 2024-08-27 14:00 | disposition home or self-care (01) | DRG 556 ==
LOC: ER 18:45 → MEDSURG 19:01
PROVIDERS: Admitting Provider Student in an Organized Health Care Education/Training Program; Emergency Provider Emergency Medicine; PCP Nurse Practitioner Family; Visit Provider Student in an Organized Health Care Education/Training Program
DX: R26.2 Difficulty in walking, not elsewhere classified (principal); G40.419 Other generalized epilepsy and epileptic syndromes, intractable, without status epilepticus; R53.1 Weakness; Q90.1 Trisomy 21, mosaicism (mitotic nondisjunction); H55.09 Other forms of nystagmus; E87.8 Other disorders of electrolyte and fluid balance, not elsewhere classified; W01.0XXA Fall on same level from slipping, tripping and stumbling without subsequent striking against object, initial encounter; F79 Unspecified intellectual disabilities; G89.29 Other chronic pain; M54.50 Low back pain, unspecified; I45.10 Unspecified right bundle-branch block; Z79.82 Long term (current) use of aspirin; Z96.82 Presence of neurostimulator
CPT/HCPCS: 36415; 36416; 70450; 70496; 70498; 72130; 72133; 72148; 80053; 80061; 80164; 80201; 81001; 82962; 83036; 84484; 85007; 85025; 92523; 92526; 92610; 93005; 93306; 93925; 97116; 97161; 97167; 97530; 97535; 99285; G0378; J8597; J9999

== ENCOUNTER → 2024-09-14 10:41 | Outpatient (BNVA) | payer MEDICARE, MEDICAID, SELFPAY | PROVIDERS: PCP Nurse Practitioner Family; Visit Provider Orthopaedic Surgery | DX: M54.50 Low back pain, unspecified (principal); Z98.890 Other specified postprocedural states; G89.29 Other chronic pain | CPT/HCPCS: 72110; 99024 ==

== ENCOUNTER 2024-10-06 12:07 | Outpatient (RCR) | payer MEDICARE, MEDICAID, SELFPAY | END 2024-10-14 23:59 | disposition home or self-care (01) | LOC: SPT 12:07 | PROVIDERS: Visit Provider Orthopaedic Surgery | DX: M54.50 Low back pain, unspecified (principal) | CPT/HCPCS: 97110; 97161 ==

== ENCOUNTER 2024-10-15 05:00 | Outpatient (RCR) | payer MEDICARE, MEDICAID, SELFPAY | END 2024-11-14 23:59 | disposition home or self-care (01) | LOC: SPT 05:00 | PROVIDERS: Visit Provider Orthopaedic Surgery | DX: M54.50 Low back pain, unspecified (principal) | CPT/HCPCS: 97110 ==

== ENCOUNTER → 2024-11-01 08:47 | Outpatient (BNVA) | payer MEDICARE, MEDICAID, SELFPAY | PROVIDERS: PCP Nurse Practitioner Family; Referring Provider Nurse Practitioner Family; Visit Provider Specialist | DX: G40.309 Generalized idiopathic epilepsy and epileptic syndromes, not intractable, without status epilepticus (principal); F41.1 Generalized anxiety disorder; Q90.1 Trisomy 21, mosaicism (mitotic nondisjunction); R42 Dizziness and giddiness | CPT/HCPCS: 36415; 80156; 80164; 95971; 99214 ==

== ENCOUNTER → 2024-11-09 08:51 | Outpatient (BNVA) | payer MEDICARE, MEDICAID, SELFPAY | PROVIDERS: PCP Nurse Practitioner Family; Visit Provider Orthopaedic Surgery | DX: M54.50 Low back pain, unspecified (principal); G89.29 Other chronic pain | CPT/HCPCS: 99213 ==

== ENCOUNTER 2024-12-27 16:55 | Emergency (ER) | payer MEDICARE, MEDICAID, SELFPAY ==
[2024-12-27 16:59] VITALS: BP 116/90; PULSE 76; RESP 17; TEMP 36.5; O2SAT 98
--- OUTSIDE RECORDS SUMMARY | 2024-12-27 17:03 | XMS_ITS | Data Portability ---
Author Organization [facility] - Miguel Angel Muñoz [facility] Sumaya Howard [facility] Address [address] [address] Care Team Providers Care Vp Strategic Partnerships Name Role Phone KACEY COBIAN Primary Care Provider Assessment Encounter Date Assessment Date Assessment LastModified by Organization Details LastModified Time 09/01/2024 09/01/2024 Patient was recently in the hospital because he woke up and couldn't move his legs. He was sent home with a walker but then hasn't had to use it or his PRN for leg pain. Not available 09/01/2024 15:12:00 09/30/2024 09/30/2024 Patient here mahsa patiño to have his labs rechecked and to check on his ASA dosing. He has seen neurology now since his last hospitalization and they have decided to try some therapy and then if he still has troubles they will look into doing a spinal tap. Not available 09/30/2024 13:06:26 12/09/2024 12/09/2024 Patient here mahsa patiño for a complete physical. He was ordered physical therapy from Dr. Caballero but they haven't heard about his appointments. Encouraged him to be active and to keep on a regular schedule. Not available 12/09/2024 13:28:17 Plan of Treatment Reminders Order Date Submit Date Provider Last Modified By Organization Details Last Modified Time Details Appointments None recorded. Lab unlisted lab - quantiferon (R)-TB gold plus, 1 tube 2024 025 [facility], [address] [place], [address], 14:38:29 CBC 2024 025 [facility], [address], [address], [place], [address], 5 13:53:54 CMP, serum or plasma 2024 025 [facility], [facility], [address], [address], [place], [address], 5 15:23:45 lipid panel, blood 2024 025 [facility], [address], [address], [place], [address], 15:23:47 thyrotropin , QN, serum or plasma 2024 025 [facility], [facility], [address], [address], [place], [address], 13:19:08 Referral orthopedic spine surgeon referral 2024 025 [email or web address] 2 Andrae Caballero DO, [address] [facility] [address], [place], [address], 12:16:13 Procedures None recorded. Surgeries None recorded. Imaging None recorded. Medication Orders aspirin 81 mg tablet,samir yed release 2024 025 [facility], [address], [place], [address], 15:58:12 Patient TargetsNo targets recorded. Patient Instructions Encounter Date Encounter Id Patient Instructions Last Modified By Organization Details Last Modified Time 09/01/2024 [id number] hospital discharge follow up* Not available 09/08/2024 13:51:59 09/30/2024 [id number] Call or return for questions or concerns. Not available 09/30/2024 11:36:06 Reason for Referral Orthopedic Spine Surgeon Ref erral for Disorder of lumbar disc Referring Physician: Kacey Cobian, Family Medicine, Encounter Date: 09/01/2024 Results Created Date Observation Date Name Description Value Unit Range Abnormal Flag Note LastModifiedBy Organization Detail LastModifiedTime 08/04/19 25 08/04/2024 CLOST RIDIU M DIFFI CILE TOXIN B,QL REAL TIME PCR clostridium difficile toxinb,ql real time PCR NOT DETECT ED not detect ed normal This test is for use only with liqui d or soft stool s; perfo rmanc e kelly cteri stics of other clini vito speci men types have not been estab lishe d. This assay was perfo rmed by [employer] pert( R) PCR. The perfo rmanc e eklly cteri stics of this assay have been deter mined by [facility] ostmarielena s. Perfo rmanc e kelly cteri stics refer to the kelly tical perfo rmanc e of the test. For addit ional infor iveth arnold e refer to http: //[facility] melida méndez.Que stDia gnost ics.c om/fa q/FAQ 136 (This link is being provi ded for infor anthony nal/e desi ional purpo ses only. ) Not Available [email or web address] [address], [place], [address], 08/04/2024 15:52:35 08/14/19 25 08/16/2024 SALMO RENEE /SHIG VICENTE CULT, CAMPY EIA AND SHIGA TOXIN W/RFL E. COLI O157 CULT campylobacte r spp. Ag,EIA SEE NOTE CAMPY LOBAC TER SPP. AG,EI A Micro Numbe r: [id number] Test Statu s: Final Speci men Sourc e: Stool Speci men Quali ty: Adequ ate Campy Ag Resul t: Not Detec gracy Refer ence Range : Not Detec gracy Not Available [email or web address] [facility] [address] [place], [address], 08/16/2024 17:32:09 08/14/19 25 08/16/2024 SALMO RENEE /SHIG VICENTE CULT, CAMPY EIA AND SHIGA TOXIN W/RFL E. COLI O157 CULT shiga toxins, EIA w/rfl to E.coli O157 culture SEE NOTE SHIGA TOXIN S, EIA W/RFL TO E.COL I O157 CULTU RE Micro Numbe r: [id number] Test Statu s: Final Speci men Sourc e: Stool Speci men Quali ty: Adequ ate Shiga Toxin : Not Detec gracy Refer ence Range : Not Detec gracy Not Available [address] [address] [place], [address], 08/16/2024 17:32:09 08/14/19 25 08/16/2024 SALMO RENEE /SHIG VICENTE CULT, CAMPY EIA AND SHIGA TOXIN W/RFL E. COLI O157 CULT salmonella and shigella, culture SEE NOTE SALMO RENEE AND SHIGE LLA, CULTU RE Micro Numbe r: [id number] Test Statu s: Final Speci men Sourc e: Stool Speci men Quali ty: Adequ ate Resul t: No Salmo renee or Shige lla isola gracy Not Available [facility] [address] [place], [address], 08/16/2024 17:32:09 09/09/19 25 09/08/2024 hospi foster disch arge follo w up* Records Reviewed Yes Not Available [facility] ( [facility]) [address] [place], [address], 09/08/2024 13:51:35 09/09/19 25 09/08/2024 hospi foster disch arge follo w up* Medications Reconciles Yes Not Available [facility] ([facility]) [address] [place], [address], 09/08/2024 13:51:35 10/01/19 25 09/30/2024 TSH TSH 3.33 uIU/m L 0.49-3 .82 Not Available [facility] [address] [facility] [address], [place], [address], 09/30/2024 13:19:08 12/10/1912/09/2024 CBC WBC 4.8 x10 4.5-10 .5 Not Available [facility] [address] [facility] [address], [place], [address], 12/09/2024 13:53:54 12/10/1912/09/2024 CBC RBC 4.20 x10 4.30-5 .90 low Not Available [facility] [address] [facility] [address], [place], [address], 12/09/2024 13:53:54 12/10/1912/09/2024 CBC HGB 13.2 g/dL 13.5-1 8.0 low Not Available [facility] [address] [facility] [address] [facility] [address], [place], [address], 12/09/2024 13:53:54 12/10/1912/09/2024 CBC HCT 41.4 % 35.0-6 0.0 Not Available [facility] [address] [facility] [facility] [address], [place], [address], 12/09/2024 13:53:54 12/10/1912/09/2024 CBC MCV 98.5 fL 80.0-9 9.9 Not Available [facility] [address] [facility] [address] [facility] [address], [place], [address], 12/09/2024 13:53:54 12/10/1912/09/2024 CBC MCH 31.3 pg 27.0-3 2.0 Not Available [facility] [address] [facility] [address], [place], [address], 12/09/2024 13:53:54 12/10/1912/09/2024 CBC MCHC 31.8 g/dL 32.0-3 6.0 low Not Available [facility] [address] [facility] [facility] [address], [place], [address], 12/09/2024 13:53:54 12/10/1912/09/2024 CBC RDW 14.5 % 11.5-1 4.5 Not Available [facility] [address] [facility] [address], [place], [address], 12/09/2024 13:53:54 12/10/1912/09/2024 CBC plt 193.3 x10 150.0- 451.0 Not Available [facility] [address] [facility] [address], [place], [address], 12/09/2024 13:53:54 12/10/1912/09/2024 CBC lymphocytes % 29.1 % 20.0-5 0.0 Not Available [facility] [address] [facility] [address], [place], [address], 12/09/2024 13:53:54 12/10/1912/09/2024 CBC granulcytes % 58.8 % 30.0-7 0.0 Not Available [facility] [address] [facility] [address], [place], [address], 12/09/2024 13:53:54 12/10/1912/09/2024 CBC monocytes % 10.2 % 2.0-16 .0 Not Available [facility] [address] [facility] [address], [place], [address], 12/09/2024 13:53:54 12/10/1912/09/2024 CBC granulcytes# 2.8 x10 Not Ev ilable [facility] [address] [facility] [address], [place], [address], 12/09/2024 13:53:54 12/10/1909 1212/09/2024 CBC lymphocytes # 1.4 x10 Not Available [facility] [address] [facility], [place], [address], 12/09/2024 13:53:54 12/10/19 25 12/09/2024 CBC monocytes # 0.5 x10 Not [facility] [address] [facility] [address], [place], [address], 12/09/2024 13:53:54 12/10/19 25 12/09/2024 CMP (MALE ) glucose 105.0 mg/dL 60.0-9 9.0 high Not Available [facility] [address] [facility] [address], [place], [address], 12/09/2024 15:23:45 12/10/19 25 12/09/2024 CMP (MALE ) BUN (blood urea nitrogen) 18.0 mg/dL 10.0-2 6.0 Not Available [facility] [address] [facility] [address], [place], [address], 12/09/2024 15:23:45 12/10/19 25 12/09/2024 CMP (MALE ) creatinine (serum) 1.0 mg/dL 0.4-1. 5 Not Available [facility] [address] [address], [place], [address], 12/09/2024 15:23:45 12/10/19 25 12/09/2024 CMP (MALE ) BUN/creatini ne ratio 18.00 ratio Not Available [facility] [address] [facility] [address], [place], [address], 12/09/2024 15:23:45 12/10/19 25 12/09/2024 CMP (MALE ) eGFR calculated 88.9 Not Available [facility] [address] [facility] [address], [place], [address], 12/09/2024 15:23:45 12/10/19 25 12/09/2024 CMP (MALE ) total protein 8.1 g/dL 6.0-8. 5 Not Available [facility] [address] [facility], [place], [address], 12/09/2024 15:23:45 12/10/19 25 12/09/2024 CMP (MALE ) total bilirubin 0.5 mg/dL 0.2-1. 3 Not Available [facility] [address] [facility] [address], [place], [address], 12/09/2024 15:23:45 12/10/19 25 12/09/2024 CMP (MALE ) albumin 4.5 g/dL 3.5-5. 5 Not Available [facility] [address] [facility] [address], [place], [address], 12/09/2024 15:23:45 12/10/19 25 12/09/2024 CMP (MALE ) globulin 3.6 calc Not Available [facility] [address] [facility] [address], [place], [address], 12/09/2024 15:23:45 12/10/19 25 12/09/2024 CMP (MALE ) AST (SGOT) 31.0 U/L 0.0-46 .0 Not Available [facility] [address] [facility] [address], [place], [address], 12/09/2024 15:23:45 12/10/19 25 12/09/2024 CMP (MALE ) altv (SGPT) 26.0 U/L 13.0-6 9.0 normal Not Available [facility] [address] [facility] [address], [place], [address], 12/09/2024 15:23:45 12/10/19 25 12/09/2024 CMP (MALE ) A/G ratio 1.3 ratio Not Available [facility] [address] [facility] [address], [place], [address], 12/09/2024 15:23:45 12/10/1912/09/2024 CMP (MALE ) ALP phos 77.0 U/L 30.0-1 40.0 normal Not Available [facility] [address] [facility] [address], [place], [address], 12/09/2024 15:23:45 12/10/1912/09/2024 CMP (MALE ) calcium 9.6 mg/dL 8.4-10 .5 Not Available [facility] [address] [facility] [address], [place], [address], 12/09/2024 15:23:45 12/10/1912/09/2024 CMP (MALE ) sodium 143.0 mmol/ L 136.0- 145.0 Not Available [facility] [address] [facility] [address], [place], [address], 12/09/2024 15:23:45 12/10/19 25 12/09/2024 CMP (MALE ) potassium 4.0 mmol/ L 3.5-5. 1 Not Available [facility] [address] [facility] [address], [place], [address], 12/09/2024 15:23:45 12/10/1912/09/2024 CMP (MALE ) chloride 108.0 mmol/ L 98.0-1 10.0 normal Not Available [facility] [address] [facility] [address], [place], [address], 12/09/2024 15:23:45 12/10/19 25 12/09/2024 CMP (MALE ) C02 26.0 mmol/ L 22.0-3 1.0 Not Available [facility] [address] [facility] [address], [place], [address], 12/09/2024 15:23:45 12/10/19 25 12/09/2024 CMP (MALE ) anion gap 9.0 calc Not Available [facility] [address] [facility] [address], [place], [address], 12/09/2024 15:23:45 12/10/19 25 12/09/2024 CMP (MALE ) osmolality 297.3 calc Not Available [facility] [address] [facility] [address], [place], [address], 12/09/2024 15:23:45 12/10/19 25 12/09/2024 LIPID PROFI LE (MALE ) cholesterol 248.0 mg/dL 0.0-20 0.0 high Not Available [facility] [address] [facility] [address], [place], [address], 12/09/2024 15:23:47 12/10/19 25 12/09/2024 LIPID PROFI LE (MALE ) trig 476.0 mg/dL 0.0-15 0.0 high Not Available [facility] [address] [facility] [address], [place], [address], 12/09/2024 15:23:47 12/10/19 25 12/09/2024 LIPID PROFI LE (MALE ) HDL - direct 50.0 mg/dL >40.0 Not Available [facility] [address] [facility] [address], [place], [address], 12/09/2024 15:23:47 12/10/19 25 12/09/2024 LIPID PROFI LE (MALE ) VLDL - direct 95.2 mg/dL Not Available [facility] [address] [facility] [address], [place], [address], 12/09/2024 15:23:47 12/10/19 25 12/09/2024 LIPID PROFI LE (MALE ) LDL - direct 102.8 mg/dL 0.0-13 0.0 Not Available [facility] [address] [facility] [address], [place], [address], 12/09/2024 15:23:47 12/10/1912/11/2024 QUANT IFERO N(R)- TB GOLD PLUS, 1 TUBE quantiferon( R)-TB gold plus, 1 tube NEGATI VE negati ve normal Negat sirena test resul t. M. tuber culos is compl ex infec tion unlik alexa. Not Available [address], [address], 12/11/2024 14:38:29 12/10/19 25 12/11/2024 QUANT IFERO N(R)- TB GOLD PLUS, 1 TUBE nil 0.02 IU/mL normal Not Available [address] [place], [address], 12/11/2024 14:38:29 12/10/19 25 12/11/2024 QUANT IFERO N(R)- TB GOLD PLUS, 1 TUBE mitogen-nil 9.07 IU/mL normal Not Available [address], [address], 12/11/2024 14:38:29 12/10/19 25 12/11/2024 QUANT IFERO N(R)- TB GOLD PLUS, 1 TUBE TB1-nil 0.00 IU/mL normal Not Available [address], [address], 12/11/2024 14:38:29 12/10/19 25 12/11/2024 QUANT IFERO N(R)- TB GOLD PLUS, 1 TUBE TB2-nil 0.01 IU/mL normal The Nil tube value refle cts the backg round inter feron gamma immun e respo nse of the patie nt's blood sampl e. This value has been subtr acted from the patie nt's displ ayed TB and Mitog en resul ts. Lower than expec gracy resul ts with the Mitog en tube preve nt false -nega tive Quant ifero n readi ngs by detec edson echeverriae nt with a poten tial immun e suppr essiv e condi tion and/o r subop timal pre-a nalyt ical speci men handl ing. The TB1 Antig en tube is coate d with the M. tuber culos is-sp ecifi c antig ens desig jake to elici t respo nses from TB antig en prime d CD4+ helpe r T-lym phocy agustin. The TB2 Antig en tube is coate d with the M. tuber culos is-sp ecifi c antig ens desig jake to elici t respo nses from TB antig en prime d CD4+ helpe r and CD8+ cytot oxic T-lym phocy agustin. For addit ional infor iveth arnold e refer to https ://ed ati on.qu alexeyAnsira. Deposco/f aq/FA Q204 (This link is being provi ded for infor anthony mahajan/ educa ihsan l purpo ses only. ) Not Available [address], [address], 12/11/2024 14:38:29 Result Notes None recorded. Problems Name Problem SNOMED Code Status Onset Date Resolution Date Notes Provider Name and Address Organization Details Recorded Time Lives in independent chcf 083188218 Active [address] [employer] [address] [facility] 4 13:57:47 Generalized anxiety disorder 94275964 Active [address] [facility] 4 10:34:08 Epilepsy 35803802 Active [address] [facility] 4 10:34:05 Mood disorder 62691333 Active [address] [facility] 4 10:34:16 Constipatio n 71767823 Active [address] [facility] 4 10:34:02 Hypothyroid ism 61155438 Active [address] [facility] L[facility]araL.CT[facility]ara 4 10:34:13 Hyperlipide nehemias 62513369 Active [address] [facility] 4 10:34:11 Hiatal hernia 44771053 Active [address] [facility] LTiaraL.CTiara 5 12:04:40 Problem Notes None recorded. Procedures Surgical History Date Name Laterality Status Provider Name and Address Organization Details Recorded Time 08/27/[address] of thoracic and lumbar spine completed [facility] 09/01/2024 18:12:54 08/26/19 25 MRI of lumbar spine completed [facility] 09/01/2024 17:59:08 08/25/[address] of head completed [facility] 08/25/2024 09:37:12 08/25/[address] of head and neck completed [facility] 08/25/2024 09:37:45 08/18/[address] of abdomen completed [facility] 08/17/2024 13:52:48 06/24/19 25 endoscopy completed [facility] 06/28/2024 11:18:40 06/24/19 25 colonoscopy completed [facility] 06/28/2024 11:21:53 06/05/19 25 plain X-ray of right ankle completed [facility], LTiaraLTiaraCTiara 06/08/2024 15:02:58 05/06/19 25 plain X-ray of right hand completed [facility], Carol AnnLTiaraCTiara 05/07/2024 15:35:32 04/24/19 25 plain X-ray of hand completed [facility], JoseCTiara 05/06/2024 14:49:47 repair of heart completed [facility], LTiaraLTiaraCTiara 12/09/2023 11:54:01 hemorrhoidectomy completed [facility], Sumaya 06/08/2024 15:01:26 Imaging Results None recorded. Procedure Notes None recorded. Medical Equipment None Reported. Allergies No known drug allergies Medications Name Sig Start Date Stop Date Status Note LastModified by Organization Details LastModified Time f t fiber lax psyl husk cp 160 take 1 capsule BY MOUTH TWICE DAILY 05/06 completed Not Available Not Available Not Available poli hamilton drp reed bag30 TAKE ONE COUGH DROP BY MOUTH EVERY 4 HOURS NEEDED 05/06 completed Not Available Not Available Not Available quetiapine 25 mg tablet Take 1 tablet twice a day by oral route for 30 days, for mood disorder. 01/08 completed Not Available Not Available Not Available Reed Cough Drops Take 1 lozenge every 4 hours by mucous route as needed. 09/01 completed Not Available Not Available Not Available atorvastati n 20 mg tablet TAKE 1 TABLET BY MOUTH EVERY DAY active Not Available Not Available No t Available Pain Relief (acetaminop hen) 325 mg tablet TAKE 2 TABLETS BY MOUTH EVERY 6 HOURS NEEDED FOR PAIN OR FEVER active Not Available Not Available No t Available loperamide 2 mg capsule TAKE 1 TABLET BY MOUTH EVERY 6 HOURS as needed for loose stools active Not Available Not Available No t Available senna 8.6 mg tablet TAKE 2 TABLETS BY MOUTH TWICE A DAY NEEDED FOR CONSTIPAT ION IF NO BOWEL MOVEMENT FOR 24 HOURS OR DIRECTED BY NURSE/EDDY ECKERTIAN. 09/01 completed due to non-u se Not Available Not Available Not Available prednisone 20 mg tablet TAKE 3 TABLETS BY MOUTH EVERY DAY for 5 days 05/06 completed Not Available Not Available Not Available clonazepam 0.5 mg tablet TAKE 1 TABLET BY MOUTH TWICE A DAY FOR ANXIETY 2024 active Not Available Not Available Not Avai lable hydroxyzine pamoate 50 mg capsule TAKE 1 CAPSULE BY MOUTH EVERY 8 HOURS NEEDED 09/01 completed Not Available Not Available Not Available calcium 600 mg (as carbonate)- vitamin D3 5 mcg (200 unit) tablet TAKE 1 TABLET BY MOUTH TWICE DAILY 09/01 completed Not Available Not Available Not Available aspirin 81 mg tablet,samir yed release Take 1 tablet every day by oral route. 2024 active Not Available Not Available Not Avai lable triamcinolo ne acetonide 0.1 % topical cream APPLY A THIN LAYER TO AFFECTED AREA TWICE DAILY 05/01 completed Not Available Not Available Not Available ketorolac 30 mg/mL (1 mL) injection solution Inject 1 mL every day by intramusc ular route for 1 day. 05/06 completed 30 mg IM x 1 dose now Not Available Not Available Not Available levothyroxi ne 75 mcg tablet TAKE 1 TABLET BY MOUTH EVERY DAY FOR thyroid active Not Available Not Available No t Available risperidone 2 mg tablet TAKE 1 TABLET BY MOUTH TWICE DAILY active Not Available Not Available No t Available carbamazepi ne 200 mg tablet TAKE 3 TABLETS BY MOUTH EVERY DAY at 8am, TWO tablets at 12pm and TWO tablets at 4pm active Not Available Not Available No t Available potassium chloride ER 20 mEq tablet,exte nded release(par t/cryst) TAKE ONE TABLET BY MOUTH IN THE MORNING 05/06 completed Not Available Not Available Not Available Triple Antibiotic 3.5 mg-400 unit-5,000 unit/gram topical ointment APPLY TOPICALLY EVERY DAY NEEDED 2023 active Not Available Not Available Not Avai lable meclizine 25 mg tablet TAKE 1 TABLET BY MOUTH THREE TIMES DAILY NEEDED FOR DIZZINESS FOR 15 DAYS active Not Available Not Available No t Available hydrocortis one 1 % topical cream APPLY TOPICALLY TO AFFECTED AREA (THIN LAYER) FOUR TIMES A DAY NEEDED FOR ITCHING 2024 active Not Available Not Available Not Avai lable levothyroxi ne 50 mcg tablet TAKE ONE TABLET BY MOUTH IN THE MORNING need labs 06/30 completed Not Available Not Available Not Available pantoprazol e 40 mg tablet,samir yed release TAKE 1 TABLET BY MOUTH EVERY DAY active Not Available Not Available No t Available Banophen 25 mg tablet TAKE 1 TABLET BY MOUTH EVERY 6 HOURS NEEDED 09/01 completed Not Available Not Available Not Available divalproex ER 500 mg tablet,exte nded release 24 hr TAKE 1 TABLET BY MOUTH EVERY MORNING WITH 250MG THEN FOUR AT BEDTIME 2024 active Not Available Not Available Not Avai lable ibuprofen 200 mg tablet TAKE 2 TABLETS BY MOUTH EVERY 6 HOURS NEEDED FOR PAIN OR FEVER 2023 active Not Available Not Available Not Avai lable hydrocortis one-aloe vera 1 % topical cream APPLY TOPICALLY TO AFFECTED AREA (THIN LAYER) TWICE A DAY NEEDED 09/01 completed Not Available Not Available Not Available docusate sodium 100 mg capsule take 1 capsule BY MOUTH EVERY DAY FOR CONSTIPAT ION active Not Available Not Available No t Available Banophen 25 mg capsule TAKE 2 CAPSULES (50MG) BY MOUTH EVERY 6 HOURS NEEDED FOR ALLERGIES OR SLEEP 2024 active Not Available Not Available Not Avai lable magnesium citrate oral solution drink ONE bottle at 12pm and 8pm 07/22 completed Not Available Not Available Not Available hydroxyzine HCl 25 mg tablet TAKE ONE TABLET BY MOUTH THREE TIMES DAILY 09/01 completed Not Available Not Available Not Available paroxetine 40 mg tablet TAKE 1 TABLET BY MOUTH EVERY DAY active Not Available Not Available No t Available bromphenira mine-pseudo ephedrine-D M 2 mg-30 mg-10 mg/5 mL oral syrup give 5ml BY MOUTH EVERY 6 HOURS as needed for COLD symptoms 09/01 completed Not Available Not Available Not Available topiramate 100 mg tablet TAKE 2 AND 1/2 TABLETS BY MOUTH IN THE MORNING & TAKE THREE TABLETS IN THE EVENING active Not Available Not Available No t Available amoxicillin 875 mg-potassiu m clavulanate 125 mg tablet TAKE 1 TABLET BY MOUTH EVERY TWELVE HOURS for 10 days 05/01 completed Not Available Not Available Not Available Laxative (bisacodyl) 5 mg tablet,samir yed release TAKE 4 TABLETS BY MOUTH at 4pm THE DAY before colonosco py procedure 06/28 completed Not Available Not Available Not Available divalproex ER 250 mg tablet,exte nded release 24 hr TAKE ONE TABLET BY MOUTH IN THE MORNING with 500mg tab 06/04 completed Not Available Not Available Not Available Fiber Laxative (psyllium husk) 0.52 gram capsule Take 1 capsule twice a day by oral route for 30 days. 05/06 completed Not Available Not Available Not Available Cough Drops 5.8 mg DISSOLVE 1 LOZENGE BY MOUTH EVERY 2 HOURS NEEDED FOR COUGH 2024 active Not Available Not Available Not Avai lable acetaminoph en 12/05 completed Not Available Not Available Not Available atorvastati n 12/05 completed Not Available Not Available Not Available potassium acetate 12/05 completed Not Available Not Available Not Available levothyroxi ne 12/05 completed Not Available Not Available Not Available carbamazepi ne 12/05 completed Not Available Not Available Not Available IBU 12/05 completed Not Available Not Available Not Available hydroxyzine HCl 12/05 completed Not Available Not Available Not Available quetiapine 12/05 completed Not Available Not Available Not Available divalproex 12/05 completed Not Available Not Available Not Available Banophen 12/05 completed Not Available Not Available Not Available fiber 12/05 completed Not Available Not Available Not Available clonazepam 12/09 completed Not Available Not Available Not Available topiramate 12/05 completed Not Available Not Available Not Available quetiapine 50 mg tablet TAKE 1 TABLET BY MOUTH AT BEDTIME active Not Available Not Available No t Available Preparation H Maximum Strength 0.25 %-1 % rectal cream APPLY TOPICALLY TO AFFECTED AREA TWICE A DAY NEEDED FOR HEMORRHOI DS 09/01 completed Non-u se Not Available Not Available Not Available calcium 600 mg (as carbonate)- vitamin D3 10 mcg (400 unit) tablet TAKE 1 TABLET BY MOUTH TWICE A DAY FOR HEALTH MAINTENAN CE 05/23/ 2025 active Not Available Not Available Not Avai lable Vicks DayQuil Cold and Flu Relief 5 mg-10 mg-325 mg/15 mL oral liquid TAKE 2 CAPSULES BY MOUTH TWICE A DAY NEEDED FOR CONGESTIO N, RUNNY NOSE, SINUS PRESSURE, COLD SYMPTOMS active Not Available Not Available No t Available ClearLax 17 gram/dose oral powder take 17 grams EVERY DAY 07/22 completed Not Available Not Available Not Available Calcium with Vit D3 600 mg (as carbonate)- 12.5 mcg (500 unit) capsule Take 1 capsule twice a day by oral route for 30 days. 05/06 completed Not Available Not Available Not Available [place] Cough Drops 3.2 mg Take 1 lozenge every 4 hours by mucous route as needed, for cough. 05/06 completed Not Available Not Available Not Available Cough Drops 7.[address] TO SEND PRECRIPTI ON active Not Available Not Available No t Available Hemorrhoida l(phenyleph -min oil-petrola t)0.25 %-14 %-74.9 % rectal oint INSERT ONE APPLICATI ON RECTALLY TWICE A DAY NEEDED FOR HEMORRHOI DS 09/01 completed Not Available Not Available Not Available potassium chloride ER 20 mEq tablet,exte nded release TAKE ONE TABLET BY MOUTH IN THE MORNING active Not Available Not Available No t Available Vicks DayQuil Cold and Flu Relief 5 mg-10 mg-325 mg capsule Take 2 capsules twice a day by oral route as needed, for congestio n, runny nose, sinus pressure, cold symptoms. 2024 active Not Available Not Available Not Avai lable Fiber (psyllium husk) 0.4 gram capsule take 1 capsule BY MOUTH TWICE DAILY active Not Available Not Available No t Available Reguloid (aspartame) 12/05 completed Not Available Not Available Not Available calcium 1,000 mg (as calcium carbonate 2,500 mg) effervescen t tablet Take by oral route. 12/05 completed Not Available Not Available Not Available Zepbound 2.5 mg/0.5 mL subcutaneou s pen injector Inject 2.5 mg every week by subcutane ous route for 28 days, for weight loss. 08/10 completed Not Available Not Available Not Available Vitals Date Recorded Body height Body mass index (BMI) Body weight Oxygen saturation Oxygen saturation in Arterial blood by Pulse oximetry Heart rate Respiratory rate Body temperature Systolic And Diastolic Provider Name and Address Organization Details Last Updated DateTime 5 185.42 cm 47.9 kg/m2 677333. 03 g 97 % 97 % 85 /min 19 /min 98 [degF] 130/86 mm[Hg] [facility] 5 12:50:13 Date Recorded Body height Body mass index (BMI) Body weight Provider Name and Address Organization Details Last Updated DateTime 09/01/2024 185.42 cm 47.6 kg/m2 818358.85 g [facility] 09/01/2024 14:54:12 Date Recorded Body height Body mass index (BMI) Body weight Oxygen saturation Oxygen saturation in Arterial blood by Pulse oximetry Heart rate Respiratory rate Systolic And Diastolic Provider Name and Address Organization Details Last Updated DateTime 5 185.42 cm 47.9 kg/m2 811378. 03 g 96 % 96 % 97 /min 20 /min 126/82 mm[Hg] [facility] 5 10:54:18 Date Recorded Body height Body mass index (BMI) Body weight Oxygen saturation Oxygen saturation in Arterial blood by Pulse oximetry Heart rate Respiratory rate Body temperature Systolic And Diastolic Provider Name and Address Organization Details Last Updated DateTime 5 185.42 cm 46.9 kg/m2 943883. 99 g 98 % 98 % 62 /min 18 /min 98.2 [degF] 130/76 mm[Hg] [facility] 5 14:30:18 Date Recorded Body height Body mass index (BMI) Body weight Oxygen saturation Oxygen saturation in Arterial blood by Pulse oximetry Heart rate Respiratory rate Systolic And Diastolic Provider Name and Address Organization Details Last Updated DateTime 5 185.42 cm 46.4 kg/m2 279965. 51 g 97 % 97 % 82 /min 20 /min 134/96 mm[Hg] TODD ZAVALETA [facility] 12:54:24 Social History Question Answer Notes LastModified by Organizat ion Details LastModified Time Tobacco Smoking Status Never Smoker Cathie Blackburn gaston [facility] 12/03/2023 12:12:49 What Is Your Level Of Caffeine Consumption? Occasional [email or web address] Information not available 12/09/2023 What Was The Date Of Your Most Recent Tobacco Screening? 10/26/2024 Information not available 10/26/2024 Have You Recently Traveled Abroad? No [email or web address] Information not available 12/09/2023 Sex: Unknown Functional Status Question Answer Note LastModified by Organizat ion Details LastModified Time Do you use any illicit or recreational drugs? No [email or web address] Information not available 12/09/2023 Do you or have you ever used any other forms of tobacco or nicotine? No [email or web address] Information not available 10/26/2024 What is your level of alcohol consumption? None Information not available 12/09/2023 Are you currently employed? No Information not available 12/09/2023 Are you able to walk independently without assistance or assistive devices? YESWOREST [email or web address] Information not available 12/09/2023 Are you able to care for yourself independently? No [employer] [email or web address] Information not available 12/09/2023 Do you or have you ever used any nicotine-free cigarettes, vape, or chewing tobacco? No [email or web address] Information not available 10/26/2024 Mental Status None recorded. Family History Relationship Description Onset Age of this Age Resolved Age Notes LastModified by Organization Details LastModified Time Father Malignant neoplasm of lung in his 70's Not available 12/09/2023 11:51:47 Mother Alcoholism [email or web address] Not avail able 12/09/2023 11:51:59 Mother Drug addict in her 40's [email or web address] Not available 12/09/2023 11:52:27 Medical History Condition Response Heart Problems Y Depression Y Developmental or Behavioral Disorders Y Mental Illness Y Anxiety Disorder Y Seizures/Epilepsy Y High Cholesterol Y Immunizations Vaccine Type Date Status Note Provider Nam e and Address Organization Details Recorded Time Influenza, split virus, quadrivalent, preservative [facility] 12/03/2023 11:59:10 Influenza, split virus, quadrivalent, preservative 1 [facility] 12/03/2023 11:59:10 Influenza, split virus, quadrivalent, preservative 9 completed [facility] 12/03/2023 11:59:10 COVID-19, mRNA, LNP-S, PF, 100 mcg/0.5mL dose or 50 mcg/0.25mL dose 1 [facility] 12/03/2023 11:59:10 COVID-19, mRNA, LNP-S, PF, 100 mcg/0.5mL dose or 50 mcg/0.25mL dose 1 completed [facility] 12/03/2023 11:59:10 COVID-19, mRNA, LNP-S, PF, 100 mcg/0.5mL dose or 50 mcg/0.25mL dose 1 completed [facility] 12/03/2023 11:59:10 COVID-19, mRNA, LNP-S, bivalent, PF, 50 mcg/0.5 mL or 25mcg/0.25 mL dose 3 completed [facility] 12/03/2023 11:59:10 DT (pediatric) 1 completed [facility] 12/03/2023 11:59:10 Tdap 9 completed Taryn Pliler null, [facility] 12/03/2023 11:59:10 Influenza, split virus, trivalent, preservative 3 completed Taryn Plnghia null, [facility] 12/03/2023 11:59:10 Td (adult), 2 Lf tetanus toxoid, preservative free, adsorbed 8 completed Taryn Plnghia null, [facility] 12/03/2023 11:59:10 Hep B, adolescent or pediatric 8 completed Taryn Plnghia null, [facility] 12/03/2023 11:59:10 Hep B, adult 9 completed Taryn Plnghia null, [facility] 12/03/2023 11:59:10 Hep B, adult 9 completed Taryn Pliler null, [facility] 12/03/2023 11:59:10 Influenza, split virus, quadrivalent, PF 2 completed Taryn Plnghia null, [facility] 12/03/2023 11:59:10 Influenza, split virus, quadrivalent, PF 8 completed Taryn Plnghia null, [facility] 12/03/2023 11:59:10 Influenza, split virus, trivalent, PF 5 completed ROBERT MADRID [address] [place] [address], [phone], [facility] 04/06/2024 13:24:51 Past Encounters Encounter ID Performer Location Encounter Start Date Encounter Closed Date Diagnosis/Indication Diagnosis SNOMED-CT Code Diagnosis ICD10 Code Diagnosis IMO Codes Diagnosis Note [id number] ROBERT GAMEZ [facility] ([facility]) [address] [place] [address] 12/03/2023 11:57:53 12/03/2023 13:22:33 Seizure disorder 213001240 G40.909 Hypercholesterolemia 136 84884 E78.00 Hypothyroidism 60621282 E03.9 Depressive disorder 3548 9007 F32.A Mood disorder 27124852 F 39 Constipation 26297894 K5 9.00 Anxiety 60773038 F41.9 Vitamin deficiency 08403 002 E56.9 Renewal of prescription 609432764 Z76.0 Medication s refilled. [id number] ROBERT MADRID [facility] ([facility]) [address] [place] [id number] 12/09/2023 11:41:59 12/09/2023 12:32:16 Annual physical examination for people with mental illness completed 3455219399 Z00.8 1800 calorie regular diet, recommend low sodium. Epilepsy 11362113 G40.90 9 Generalize d anxiety disorder 97567387 F41.1 Working at [employer] with [facility]. Vitamin deficiency 44108 002 E56.9 Mood disorder 04532569 F 39 Constipation 05022177 K5 9.00 [facility] 038538189 Z59.3 [employer] Tuberculos is screening 731757277 Z11.7 Hypothyroidism 34020664 E03.9 Hyperlipidemia 20342168 E78.5 [id number] ROBERT GAMEZ [facility] ([facility]) [address] [place] [phone] 01/09/2024 11:32:38 01/09/2024 15:36:31 Common cold 72503033 J00 Discussed use of dayquil for cold symptoms.i f pt develops fever, cough, sore throat, or worsening s/s then return for re-eval. [id number] ROBERT GAMEZ [facility] ([facility]) [address] [place] [phone] 01/30/2024 14:26:55 01/30/2024 14:34:55 Common cold 03625821 J00 [id number] ROBERT MADRID [facility] ([facility]) [address] [place] [address] 03/23/2024 11:00:23 03/23/2024 12:14:13 Epilepsy 57701088 G40.909 Last seizure a prior to being with this company (6+ months ago). Mood disorder 15278570 F 40 Follows with [facility]. Hypothyroidism 96244228 E03.9 Continue levothyrox ine. Hyperlipidemia 01023221 E78.5 Continue atorvastat in. Generalize d anxiety disorder 42672795 F41.1 Follows with [facility]. Acute bact erial bronchitis 939983631 J20.9 Obesity 652829960 E66.01 1800 calorie low sodium diet. [id number] KACEY COBIAN [facility] ([facility]) [address] [place] [address] 04/06/2024 11:53:34 04/06/2024 13:27:40 Administration of influenza vaccine 49528744 Z23 Insect bite reaction 402 498177 T63.481A Caregiver reports house is being sprayed tomorrow. Hemorrhoids 81787547 K64 .9 Blood in stools sometimes, doesn't always use the cream he has available. Lately he reports it has been okay. He reports his stools are soft. [id number] CANDACE RODRIGUEZ [facility] ([facility]) [address] [place] [id number] 05/01/2024 13:27:56 05/01/2024 14:01:56 Joint pain in left hand 5295059018 891794 M25.542 Follow up with Kacey Cobian as scheduled. COntinue prn medication s as ordered previously . [id number] KACEY COBIAN [facility] ([facility]) [address] [place] [id number] 05/06/2024 14:29:19 05/06/2024 16:09:51 Pain of bilateral hands 9588912552 3907915 M79.641 M79.642 Right hand worse than left today. [facility]en in [facility] 837749935 Z76.89 ER follow-up. Recommend he see PCP for EMG order. [id number] KACEY COBIAN [facility] ([facility]) [address] [place] [phone] 06/04/2024 11:47:35 06/04/2024 13:16:48 Annual physical examination for people with mental illness completed 0304659097 Z00.8 Annual Physical: 06/04/2024D ental: [employer] : 01/31/2024 TB: 12/09/2023L abs: 06/04/2024 Adaptive Equipment: Glasses and VNSDiet: 1800 calorie regular diet, recommend low sodiumSpec ialists: General surgeon, Neurology ([place] ) Medication monitoring 39 0925091 Z51.81 Epilepsy 99930435 G40.90 9 Last seizure a prior to being with this [employer] (6+ months ago). Heart valve disorder 368 009 I34.89 Hyperthyroidism 83407940 E05.90 Continue levothyrox ine. Hyperlipidemia 58900580 E78.5 Continue atorvastat in. Post-traum atic stress disorder 32038887 F43.10 Hydroxyzin e as needed. 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 Mild intel lectual disability 38050377 F70 Lives in ISL. Pain of ri ght ankle joint 6630246492 8274394 M25.571 Morbid obesity 683770396 E66.01 Hematochezia 204928455 K 92.1 Has been referred for colonoscop y. [id number] ROBERT MADRID [facility] ([facility]) [address] [place] [phone] 06/28/2024 11:44:34 06/28/2024 12:35:45 Anemia 797934965 D64.9 Hypothyroidism 84640552 E03.9 Continue levothyrox ine. [id number] ROBERT MADRID [facility] ([facility]) [address] [place] [address] 07/22/2024 15:06:35 07/22/2024 16:14:52 Acute diarrhea 682219059 R19.7 01746 Lives in ndependent [facility] 491362443 Z78.9 [id number] [employer], advised staff it was okay to give his 2pm meds when they return to the house as long as it is prior to 4pm. [id number] ROBERT LICONA [facility] ([facility]) [address] [place] [id number] 08/23/2024 12:30:22 08/24/2024 12:35:33 Pain in bilateral legs 1738782634 7123186 M79.604 M79.605 [id number] Normal BLE exam with no cellulitis noted. COntinue current treatment of augmentin. Follow up with Kacey cobian as scheduled. Acute constipation 82474 9006 K59.00 [id number] May hold dicyclomin e due to constipati on today. Advised to follow diet plan as ordered. Increase water intake. [id number] KACEY COBIAN [facility] ([facility]) [address] [place] [phone] 09/01/2024 14:19:19 09/01/2024 15:30:12 Lives in independent chcf 147277149 Z78.9 Discontinu e hydroxyzin e pamoate, senna, dicyclomin e, bromphenir amine and preparatio n H. Asthenia 85128081 R53.1 97692 Patient was recently in the hospital because he was unable to walk after his sleep study. He was admitted for 3 days and sent home with a walker but is able to walk without issue now. Disorder o f lumbar disc 989939203 M51.744 [id number] Recent MRI done at [facility] during inpatient stay. MRI findings most likely non-surgic al but patient reports he was told he may need back surgery by the doctor while in the hospital. Will make referral for specialist discussion . Post-disch arge follow-up 493000255 Z09 733975 [id number] KACEY COBIAN [employer] [facility] ([facility]) [address] [place] [id number] 09/30/2024 10:45:52 09/30/2024 12:24:47 Hypothyroidism 95517510 E03.9 Continue levothyrox ine. Asthenia 05319752 R53.1 35125 Restart ASA 81mg dosing. [id number] ROBERT GAMEZ [facility] ([facility]) [address] [place] [id number] 10/26/2024 14:14:56 10/26/2024 15:19:51 Worried well 83402575 Z71.1 [id number] No redness on exam today to legs. Discussed to stay out of the high heat temperatur es currently. Pt to keep appt with Dr. caballero. [id number] ROBERT MADRID [facility] ([facility]) [address] [place] [address] 12/09/2024 12:40:07 12/09/2024 13:31:34 Tuberculosis screening status 136998205 Z11.1 504856 Hypothyroidism 01564624 E03.9 Continue levothyrox ine. Mood disorder 75080213 F 40 Follows with [facility]. [facility] 607515801 Z78.9 [id number] Annual Physical: 12/09/2024D ental: 11/2024Visi on: 09/2024TB: 12/09/2024L abs: 12/09/2024 Adaptive Equipment: VNS, Matra iyer t: 1999 calorie dietSpecia lists: Dr. Youssef, cardiologi , [facility] Pain in hallux 917807131 M79.674 58883089 Encouraged shower at least every other day. Epilepsy 38560857 G40.90 9 Last seizure a prior to being with this [employer] (6+ months ago). Follows with Dr. Youssef. Generalize d anxiety disorder 50276995 F41.1 Follows with [facility]. Hyperlipidemia 64885086 E78.5 Continue atorvastat in. Annual phy sical examination for people with mental illness completed 1188447260 Z00.00 F99 1025817748 Health Concerns Section Related Observation LastModified by Organization Detai ls LastModified Time None Recorded Concern Status LastModified by Organization Details LastModified Time None Recorded Advance Directives Directive None Recorded Payers Insurance Date Sequence Insurance Name Policy Number Policy Valdivia Covered Member ID Valdivia Member ID Guarantor Name 12/09/2024 [place] - [facility] (MEDICARE) Herrera Garza [id number] Herrera Garza 12/09/2024 [place] [facility] Herrera Garza [id number] Herrera Garza 12/09/2024 2 [place] Herrera Garza Jr [id number] Herrera Garza 12/09/2024 1 [place] [facility] Herrera Garza [id number] Herrera Garza Notes Date Note Type Note Provider Name and Address Organization Details Recorded Time 5 text/html ROS as noted in the HPI Patient was seen in the ER last Friday for stomach issues. Was told he was overeating. He's supposed to be on 1800 calories and he was eating over 7000. Was told that bloodwork and scans were normal. He did not get better so he was seen last Friday at [facility] walk-in and was put on amoxicillin and dicyclomine for an infection for watery stools. He now thinks he has infections in his feet. Feels like Feet are red and painful. CANDACE RODRIGUEZ [employer] [address] [place] [address], [phone], [facility] 08/23/2024 19:34:21 5 text/html Back PainReported by PatientHPIFor associated symptoms, patient reportsgait instability. For location, patient reportslumbar bilateral. For quality, patient reportsdull. For severity, patient reportsimproving. DiarrheaReported by PatientHPIFor severity, patient reportsimproving. ROBERT MADRID [address] [place] [address], [phone], [facility], [facility]. 09/08/2024 13:52:25 5 text/html HypothyroidReported by PatientHPIFor reason for visit, patient reportstsh check/labs. For treatment, patient reportstaking medication as prescribedandlast tsh level: 7.76. ROBERT MADRID [address] [place] [address], [phone], [facility], [facility]. 09/30/2024 13:06:46 5 text/html ROS as noted in the [facility] walk-in; PCP Kacey Cobian Patient states his legs and feet feel weak. Legs have some redness. Rehabilitation Services Director states this started after they were sitting outside for about 30 minutes. Since pt has been indoors the redness has went away. Pt using walker. Has an appt with [facility] to discuss recent lumbar MRI.doing physical therapy which is helping his back. MAYRA ORELLANA, [facility] [place], [address], [facility], [place] 10/26/2024 15:12:14 text/html HypothyroidReported by PatientHPIFor reason for visit, patient reportsgeneral check-up. For duration, patient reports>12 months. For treatment, patient reportstaking medication as prescribedandlast tsh level: 3.33. KACEY COBIAN, [facility] [address] [place], [address], [facility] [place] 12/09/2024 13:30:10
--- NOTE | 2024-12-27 17:16 | W.ED.EYEPROB ---
HPI - Eye Problem General: Chief complaint: Eye Problems Stated complaint: L eye watering constantly Time Seen by Provider: 12/27/24 17:13 History of Present Illness: 39-year-old male with history of obesity, intellectual disability, seizures, mosaic Down syndrome and anxiety who presents to the emergency room with excessive lacrimation of left eye. He says this happens every once in a while and has been going on for couple of hours today. He has not been to see his primary care or urgent care. No pain. No injury. No redness. Currently he is not watering. No vision changes. Related Data Home Medications ?Medication ?Instructions ?Recorded ?Confirmed atorvastatin 20 mg tablet 20 mg PO .Night 12/23/23 11/16/24 clonazepam 0.5 mg tablet 0.5 mg PO BID 12/23/23 11/16/24 diphenhydramine HCl 50 mg capsule 50 mg PO QID PRN Allergic Reaction 12/23/23 11/16/24 (Banophen) ft fiberlax psyllium husk 160 mg PO BID 12/23/23 11/16/24 hydrocortisone 1 % topical cream 1 applic topical BID PRN Itching 12/23/23 11/16/24 (Anti-Itch (hydrocortisone)) hydroxyzine pamoate 50 mg capsule 50 mg PO QID PRN Anxiety 12/23/23 11/16/24 menthol 3.2 mg lozenges ([place] 3.2 mg mucous membrane Q2H PRN 12/23/23 11/16/24 Cough Drops) Cough polyethylene glycol 3350 17 4 g PO TID PRN Constipation 12/23/23 11/16/24 gram/dose oral powder potassium chloride 20 mEq 20 meq PO DAILY 12/23/23 11/16/24 tablet,extended release dextromethorphan HBr 5 mg/5 mL 10 mg PO BID PRN Cough 01/28/24 11/16/24 oral syrup (Vicks DayQuil Cough) topiramate 100 mg tablet See Rx Instructions .Route .COMPLEX 06/21/24 11/16/24 acetaminophen 325 mg tablet 650 mg PO Q6H PRN pain/fever 08/25/24 11/16/24 docusate sodium 100 mg capsule 100 mg PO QPM 08/25/24 11/16/24 ibuprofen 200 mg tablet 400 mg PO Q6H PRN pain/fever 08/25/24 11/16/24 levothyroxine 75 mcg tablet 75 mcg PO QAM 08/25/24 11/16/24 pantoprazole 40 mg tablet,delayed 40 mg PO DAILY 08/25/24 11/16/24 release polyethylene glycol 3350 17 gram 17 g PO DAILY Constipation 08/25/24 11/16/24 oral powder packet (Miralax) Previous Rx's ?Medication ?Instructions ?Recorded dicyclomine 10 mg capsule 10 mg PO TID diarrhea, cramping 08/19/24 #12 caps divalproex 500 mg tablet,extended 500 mg PO DAILY #180 tabs 11/01/24 release 24 hr (Depakote ER) carbamazepine 200 mg tablet See Rx Instructions .Route 11/09/24 .COMPLEX #210 tabs ondansetron 4 mg disintegrating 4 mg PO Q6H PRN nausea and 11/10/24 tablet vomiting #10 tabs paroxetine HCl 40 mg tablet 40 mg PO DAILY #30 tabs 11/16/24 quetiapine 50 mg tablet 50 mg PO .HS #30 tabs 11/16/24 risperidone 1 mg tablet 1 mg PO QAM #30 tabs 11/16/24 risperidone 2 mg tablet 2 mg PO .HS #30 tabs 11/16/24 prednisolone acetate 1 % eye 1 drp ophthalmic (eye) QID 7 days 12/27/24 drops,suspension #10 mL Allergies Allergy/AdvReac Type Severity Reaction Status Date / Time No Known Allergies Allergy Verified 12/27/24 17:03 Review of Systems Narrative: Constitutional symptoms: Negative except as documented in HPI. Skin symptoms: Negative except as documented in HPI. Eye symptoms: Negative except as documented in HPI. ENMT symptoms: Negative except as documented in HPI. Respiratory symptoms: Negative except as documented in HPI. Cardiovascular symptoms: Negative except as documented in HPI. Gastrointestinal symptoms: Negative except as documented in HPI. Genitourinary symptoms: Negative except as documented in HPI. Musculoskeletal symptoms: Negative except as documented in HPI. Neurologic symptoms: Negative except as documented in HPI. Psychiatric symptoms: Negative except as documented in HPI. Endocrine symptoms: Negative except as documented in HPI. PFSH ED PFSH: Medical History (Updated 12/27/24 @ 17:17 by Lata Rodriguez MD) Generalized epilepsy Generalized anxiety disorder Mosaic Down syndrome Intellectual disability Psychiatric care Social History Smoking and tobacco/nicotine status: never used tobacco/nicotine Physical Exam Narrative: EXAM NARRATIVE: General: Alert, no acute distress. Skin: warm and dry Head: Normocephalic Neck: Trachea midline Eye: Extraocular movements are intact. No redness/erythema. Visual grossly intact. Ears, nose, mouth and throat: Oral mucosa moist Respiratory: Respirations are non-labored Musculoskeletal: Normal ROM Gastrointestinal: Abdomen does not appear distended Neurological: Alert and oriented, No focal neurological deficit observed. Psychiatric: Cooperative, appropriate mood & affect. Course Vital Signs: Vital signs: Vital Signs Temperature 97.7 F 12/27/24 16:59 Pulse Rate 76 12/27/24 16:59 Respiratory Rate 17 12/27/24 16:59 Blood Pressure 116/90 12/27/24 16:59 Pulse Oximetry 98 12/27/24 16:59 MDM - Eye Problem Medical Decision Making Medical decision making: Differential diagnosis including but not limited to and based on the above HPI, review of systems and physical exam: Patient appears to have some excessive lacrimation. This can sometimes be caused by irritation of the eye. He has no pain. No itching. No redness. I will place him on some steroids for a few days I recommend he follow-up with his primary provider \ \ Assessment and plan: Excessive lacrimation - Discharged home - Discussed plan with patient. Answered any questions. - Evaluation and treatment of this problem were appropriate in the emergency setting. No radiology studies performed this visit Discharge Plan Discharge Patient Disposition: Home Clinical Impression: Excessive lacrimation Condition: Stable Prescriptions: New prednisolone acetate 1 % drops,suspension 1 drp ophthalmic (eye) QID 7 Days Qty: 10 0RF No Action diphenhydramine HCl [Banophen] 50 mg capsule 50 mg PO QID PRN (Reason: Allergic Reaction) [place] Cough Drops 3.2 mg lozenge 3.2 mg mucous membrane Q2H PRN (Reason: Cough) hydrocortisone [Anti-Itch (HC)] 1 % cream 1 applic topical BID PRN (Reason: Itching) hydroxyzine pamoate 50 mg capsule 50 mg PO QID PRN (Reason: Anxiety) polyethylene glycol 3350 17 gram/dose powder 4 g PO TID PRN (Reason: Constipation) clonazepam 0.5 mg tablet 0.5 mg PO BID ft fiberlax psyllium husk 160 mg PO BID atorvastatin 20 mg tablet 20 mg PO .Night Rx Instructions: Every night with dinner. potassium chloride 20 mEq tablet extended release 20 meq PO DAILY Rx Instructions: Take with food. Vicks DayQuil Cough 5 mg/5 mL syrup 10 mg PO BID PRN (Reason: Cough) risperidone 2 mg tablet 2 mg PO .HS Qty: 30 11RF risperidone 1 mg tablet 1 mg PO QAM Qty: 30 11RF quetiapine 50 mg tablet 50 mg PO .HS Qty: 30 11RF paroxetine HCl 40 mg tablet 40 mg PO DAILY Qty: 30 11RF dicyclomine 10 mg capsule 10 mg PO TID Qty: 12 0RF ondansetron 4 mg tablet,disintegrating 4 mg PO Q6H PRN (Reason: nausea and vomiting) Qty: 10 0RF divalproex [Depakote ER] 500 mg tablet extended release 24 hr 500 mg PO DAILY Qty: 180 1RF Rx Instructions: 1 in the morning and 3 at night for 2 weeks then 1 in the morning and 2 at night. carbamazepine 200 mg tablet See Rx Instructions .ROUTE .COMPLEX Qty: 210 5RF Rx Instructions: Reduce to 2 tablets by mouth every morning, 2 tablets at noon and 2 tablets at 4 pm. topiramate 100 mg tablet See Rx Instructions .ROUTE .COMPLEX Rx Instructions: TAKE 2 AND 1/2 TABLETS BY MOUTH IN THE MORNING & TAKE THREE TABLETS IN THE EVENING acetaminophen 325 mg Tablet 650 mg PO Q6H PRN (Reason: pain/fever) levothyroxine 75 mcg tablet 75 mcg PO QAM ibuprofen 200 mg Tablet 400 mg PO Q6H PRN (Reason: pain/fever) docusate sodium 100 mg Capsule 100 mg PO QPM polyethylene glycol 3350 [Miralax] 17 gram powder in packet 17 g PO DAILY pantoprazole 40 mg tablet,delayed release (DR/EC) 40 mg PO DAILY Discharge Orders: Discharge ED (Routine); Ordered 12/27/24 Ordered By: Lata Rodriguez Referrals: Kacey Suarez FNP [Primary Care Provider, Unknown] Discharge Diet: Usual diet Discharge Activity: Increase activity as tolerated Patient Instructions: Opioid Safety, Pain Management, Patient Portal & [facility] Instructions Activity Restrictions/Additional Instructions: Thank you for choosing [facility] for your healthcare needs today. You have been screened and evaluated and felt safe for discharge. Health conditions do change or evolve sometimes and as such it is important that you follow up with your Primary Doctor to be re checked, 3-5 days is a general good time frame for follow up. You are always welcome to return to the ED for re assessment if your symptoms are worsening or you have new concerns Print Language: Albanian Coding Level of Care Code ED [employer] Architect for Ambar Carmona
== END 2024-12-27 17:24 | disposition home or self-care (01) ==
PROVIDERS: Emergency Provider Emergency Medicine; PCP Nurse Practitioner Family
DX: H04.202 Unspecified epiphora, left side (principal)
CPT/HCPCS: 99283

== ENCOUNTER → 2025-01-20 10:43 | Outpatient (BNVA) | payer MEDICARE, MEDICAID, SELFPAY | PROVIDERS: PCP Nurse Practitioner Family; Visit Provider Podiatrist Foot & Ankle Surgery | DX: Q66.221 Congenital metatarsus adductus, right foot (principal); Q66.222 Congenital metatarsus adductus, left foot; Q66.71 Congenital pes cavus, right foot; Q66.72 Congenital pes cavus, left foot | CPT/HCPCS: 73630; 99203 ==

== ENCOUNTER → 2025-01-31 09:10 | Outpatient (BNVA) | payer MEDICARE, MEDICAID, SELFPAY | PROVIDERS: PCP Nurse Practitioner Family; Referring Provider Nurse Practitioner Family; Visit Provider Specialist | DX: G40.309 Generalized idiopathic epilepsy and epileptic syndromes, not intractable, without status epilepticus (principal); F41.1 Generalized anxiety disorder; Q90.1 Trisomy 21, mosaicism (mitotic nondisjunction); R42 Dizziness and giddiness | CPT/HCPCS: 99213 ==

== ENCOUNTER → 2025-02-01 10:27 | Outpatient (BNVA) | payer MEDICARE, MEDICAID, SELFPAY | PROVIDERS: PCP Nurse Practitioner Family; Visit Provider Orthopaedic Surgery | DX: M54.50 Low back pain, unspecified (principal) | CPT/HCPCS: 99213 ==